=== PATIENT | male | born 1955 | race African-American/Black ===

== ENCOUNTER 2018-08-27 01:02 | Inpatient (IN) | payer BC, OTHER ==
--- NOTE | 2018-08-27 01:45 | RADIOLOGY REPORT (SQ) ---
CLINICAL HISTORY: fall; swelling COMPARISON: None. TECHNIQUE: XR ANKLE 3 OR MORE VIEWS 08/27/2018 1:08 AM SEEING EYE DOG TRAINER FINDINGS: There is a displaced transverse medial malleolus fracture. There is a mildly comminuted oblique fracture of the distal fibula. There is a vertical fracture through the posterior lip of the tibia. There is subluxation of the tibiotalar joint. There is diffuse soft tissue swelling. IMPRESSION: Trimalleolar fracture subluxation.
[2018-08-27 02:48] LABS: ABSOLUTE EOSINOPHILS # (AUTO) 0.2 10^3/uL (0.0-0.6); ABSOLUTE LYMPHOCYTES (AUTO) 1.4 10^3/uL (0.5-4.7); ABSOLUTE MONOCYTES (AUTO) 0.6 10^3/uL (0.1-1.4); ABSOLUTE NEUT (AUTO) 5.3 10^3/uL (1.7-8.2); BASOPHILS % (AUTO) 0.2 % (0-2); HEMATOCRIT 31.2 % (37.9-51.0); HEMOGLOBIN 10.4 g/dL (13.5-17.0); LYMPHOCYTES % (AUTO) 18.6 % (13-45); MEAN CORPUSCULAR HEMOGLOBIN 27.8 pg (27.0-33.4); MEAN CORPUSCULAR HGB CONC 33.4 g/dL (32.0-36.0); MEAN CORPUSCULAR VOLUME 83 fl (80-97); MONOCYTES % (AUTO) 7.6 % (3-13); PLATELET COUNT 224 10^3/uL (150-450); RED BLOOD COUNT 3.75 10^6/uL (4.35-5.55); RED CELL DISTRIBUTION WIDTH 15.4 % (11.5-14.0); SEGMENTED NEUTROPHILS % (AUTO) 70.6 % (42-78); TOTAL CELLS COUNTED % (AUTO) 100 %; WHITE BLOOD COUNT 7.5 10^3/uL (4.0-10.5)
[2018-08-27 02:51] LABS: ALANINE AMINOTRANSFERASE 76 U/L (21-72); ALKALINE PHOSPHATASE 96 U/L (38-126); ANION GAP 9 (5-19); ASPARTATE AMINO TRANSFERASE 63 U/L (17-59); BILIRUBIN,DIRECT 0.3 mg/dL (0.0-0.4); BILIRUBIN,TOTAL 0.4 mg/dL (0.2-1.3); BLOOD UREA NITROGEN 18 mg/dL (7-20); CARBON DIOXIDE 24 mmol/L (22-30); CHLORIDE 107 mmol/L (98-107); GLUCOSE 207 mg/dL (75-110); POTASSIUM 4.2 mmol/L (3.6-5.0); SODIUM 140.4 mmol/L (137-145); TOTAL PROTEIN 7.2 g/dL (6.3-8.2)
--- NOTE | 2018-08-27 02:51 | RADIOLOGY REPORT (SQ) ---
CLINICAL HISTORY: Post reduction COMPARISON: Earlier the same day. TECHNIQUE: XR ANKLE 2 VIEWS 08/27/2018 2:03 AM LITIGATION ASSISTANT FINDINGS: There are continued findings of a trimalleolar fracture subluxation. Alignment is not significantly changed. Joint spaces are preserved. There is diffuse soft tissue swelling. IMPRESSION: No significant change in alignment.
--- NOTE | 2018-08-27 03:34 | ER Document Report ---
Entered by RACHEL RITTER SCRIBE 08/27/18 0120 Acting as scribe for:TORRI MOSLEY MD ED Extremity Problem, Lower - General Chief Complaint: Fall Injury Stated Complaint: ANKLE PAIN Time Seen by Provider: 08/27/18 01:11 Primary Care Provider: KALPANA PHAM [NO LOCAL MD] - Follow up as needed Information source: Patient Notes: 63-year-old male who presents to the emergency department today with complaints of left ankle pain. Patient states he was walking out of his house into his garage which she is remodeling into a normal room when he lost his balance. Patient states his "left leg tried to get away from him". Patient complains of left ankle pain left thigh pain. Patient states left thigh pain has been present for several days after falling and. Patient is on 30 mg of oxycodone every 4 hours daily for chronic back pain. Pain medication was not given according to the long bone fracture policy due to the fact that the patient takes oxycodone 30 mg every 4 hours and took a dose just prior to coming in. He also did not really have much discomfort when I straightened the ankle and held it for splinting. TRAVEL OUTSIDE OF THE [place] IN LAST 30 DAYS: No - Related Data Allergies/Adverse Reactions: aspirin Allergy (Verified 08/27/18 01:23) shellfish derived Allergy (Verified 08/27/18 01:23) acetaminophen [From Tylenol] Adverse Reaction (Verified 08/27/18 01:23) Past Medical History - General Information source: Patient - Social History Smoking Status: Never Smoker Cigarette use (# per day): No Frequency of alcohol use: None Drug Abuse: None Lives with: Family Family History: Reviewed & Not Pertinent - Past Medical History Cardiac Medical History: Reports: Hx Hypercholesterolemia, Hx Hypertension Endocrine Medical History: Reports: Hx Diabetes Mellitus Type 2 Renal/ Medical History: Reports: Hx Benign Prostatic Hyperplasia Surgical Hx: Negative Review of Systems - Review of Systems Constitutional: No symptoms reported EENT: No symptoms reported Cardiovascular: No symptoms reported Respiratory: No symptoms reported Gastrointestinal: No symptoms reported Genitourinary: No symptoms reported Male Genitourinary: No symptoms reported Musculoskeletal: See HPI, Joint pain - left ankle with swelling Skin: No symptoms reported Hematologic/Lymphatic: No symptoms reported Neurological/Psychological: No symptoms reported -: Yes All other systems reviewed and negative Physical Exam - Vital signs Vitals: Temp Pulse Resp BP Pulse Ox 98.5 F 117 H 22 H 162/86 H 98 08/27/18 01:07 08/27/18 01:07 08/27/18 01:07 08/27/18 01:07 08/27/18 01:07 - Notes Notes: Physical Exam: General: Alert, morbidly obese. HEENT: Normocephalic. Atraumatic. PERRL. Extraocular movements intact. Oropharynx clear. Neck: Supple. Non-tender. Respiratory: No respiratory distress. Clear and equal breath sounds bilaterally. Cardiovascular: Regular rate and rhythm. Abdominal: Morbidly obese. Non-tender. No distension. Normal Bowel Sounds. Back: Non-tender. No deformity or step off. Extremities: Moves all four extremities. Upper extremities: Normal inspection. Normal ROM. Lower extremities: The left anterior lateral thigh is tender to palpate in the m uscles. Patient reports that has been tender since he stepped in a hole last week. The left ankle is swollen, and on evaluation is found to be unstable. There is good capillary refill and normal sensation to the toes. Neurological: Normal cognition. AAOx4. Normal speech. Psychological: Normal affect. Normal Mood. Skin: Warm. Dry. Normal color. Course - Re-evaluation Re-evalutation: 08/27/18 02:44 An attempt was made to hold the ankle in a reduced manner and splint. The patient would periodically jerk and I could feel the medial malleolar region moving back and forth. I was not able to keep the ankle in reduction, however when splinted the patient was comfortable, had good capillary refill, and good sensation to the toes. - Vital Signs Vital signs: Temp Pulse Resp BP Pulse Ox 98.5 F 117 H 16 165/91 H 98 08/27/18 01:07 08/27/18 01:07 08/27/18 02:01 08/27/18 02:01 08/27/18 02:01 - Laboratory Result Diagrams: 08/27/18 02:30 08/27/18 02:30 Laboratory results interpreted by me: 08/27/18 08/27/18 02:30 02:30 RBC 3.75 L Hgb 10.4 L Hct 31.2 L RDW 15.4 H Glucose 207 H AST 63 H ALT 76 H - Diagnostic Test Radiology reviewed: Reports reviewed - Left ankle shows a trimalleolar fracture subluxation - EKG Interpretation by Me EKG shows normal: Sinus rhythm, [place], Intervals, QRS Complexes, ST-T Waves Rate: Normal - 94 Rhythm: NSR [place]/QRS: RBBB P Waves: LAE When compared to previous EKG there are: Previous EKG unavailable - Consults Dr. Matthews Time consulted: 03:20 Consulted provider: will see as inpatient Discharge - Discharge Clinical Impression: Trimalleolar fracture of left ankle Qualifiers: Encounter type: initial encounter Fracture type: closed Qualified Code(s): S82.852A - Displaced trimalleolar fracture of left lower leg, initial encounter for closed fracture Condition: Stable Disposition: ADMITTED INPATIENT Admitting Provider: Dr. Matthews Unit Admitted: Surgical Floor Referrals: LOCALMD,NO [NO LOCAL MD] - Follow up as needed I personally performed the services described in the documentation, reviewed and edited the documentation which was dictated to the scribe in my presence, and it accurately records my words and actions.
[2018-08-27] MEDS: MORPHINE SULFATE 10 MG/ML INJ IV PRN ×5 (06:19→22:39)
--- NOTE | 2018-08-27 07:28 | PDOC H&P ---
History of Present Illness Admission Date/PCP: 08/27/18 03:42 [facility] History of Present Illness: TJ PIERCE is a 63 year old male Patient is a 63-year-old black male with past medical history significant for diabetes and hypertension who slipped and fell yesterday sustained a left ankle injury. He was evaluated emergency room and a displaced left trimalleolar ankle fracture was identified. He was reduced, splinted, admitted to the orthopedic service for fracture management. Past Medical History Cardiac Medical History: Reports: Hyperlipidema, Hypertension Endocrine Medical History: Reports: Diabetes Mellitus Type 2 Psychiatric Medical History: Denies: Depression Past Surgical History Past Surgical History: Reports: None Social History Information Source: Patient, [facility] Records Lives with: Family Smoking Status: Never Smoker Frequency of Alcohol Use: None Hx Recreational Drug Use: No Hx Prescription Drug Abuse: No Family History Family History: Reviewed & Not Pertinent Parental Family History Reviewed: No Children Family History Reviewed: No Sibling(s) Family History Reviewed.: No Medication/Allergy Home Medications: Amlodipine Besylate [Norvasc 10 mg Tablet] 10 mg PO DAILY 08/27/18 Atorvastatin Calcium [Lipitor] 80 mg PO QHS 08/27/18 Gabapentin Enacarbil [Horizant] 600 mg PO DAILY 08/27/18 Insulin Glargine,Hum.rec.anlog [Lantus Insulin 100 Unit/mL] 50 units SUBCUT QHS 08/27/18 Metoprolol Tartrate [Lopressor 25 mg Tablet] 25 mg PO BID 08/27/18 Omeprazole 20 mg PO BID 08/27/18 Oxycodone HCl [Oxy-Ir 5 mg Tablet] 15 mg PO Q6H PRN 08/27/18 Sitagliptin Phos/Metformin HCl [Janumet Xr 50-1,000 mg Tablet] 50 - 1,000 mg PO BID 08/27/18 Telmisartan/Hydrochlorothiazid [Telmisartan-Hctz 80-25 mg Tab] 1 tab PO DAILY 08/27/18 Terazosin HCl 10 mg PO DAILY 08/27/18 Allergies/Adverse Reactions: aspirin Allergy (Verified 08/27/18 01:23) shellfish derived Allergy (Verified 08/27/18 01:23) acetaminophen [From Tylenol] Adverse Reaction (Verified 08/27/18 01:23) Review of Systems All systems: as per PMH Physical Exam Vital Signs: Temp Pulse Resp BP Pulse Ox 36.8 C 98 20 161/85 H 98 08/27/18 05:44 08/27/18 05:44 08/27/18 05:44 08/27/18 05:44 08/27/18 05:44 Intake & Output 08/26/18 08/27/18 08/28/18 06:59 06:59 06:59 Weight 142.3 kg Physical Exam: The patient is an obese middle-aged black male lying in a hospital bed in minimal distress. He is alert, oriented, and appropriate. General appearance: PRESENT: no acute distress, mild distress, obese Head exam: PRESENT: normocephalic Respiratory exam: PRESENT: unlabored Cardiovascular exam: PRESENT: RRR Pulses: PRESENT: +1 pedal pulses bilateral Vascular exam: PRESENT: normal capillary refill GI/Abdominal exam: PRESENT: soft Rectal exam: PRESENT: deferred Extremities exam: PRESENT: other - Left lower extremity immobilized with a posterior splint. Toes are accessible. There is brisk capillary refill in each of the digits with intact sensory examination and intact motor function to the great toe. Neurological exam: PRESENT: alert, awake, oriented to person, oriented to place, oriented to time, oriented to situation. ABSENT: motor sensory deficit Psychiatric exam: PRESENT: appropriate affect, normal mood. ABSENT: homicidal ideation, suicidal ideation Skin exam: PRESENT: dry, intact, warm. ABSENT: cyanosis, rash Results Laboratory Results: 08/27/18 02:30 08/27/18 02:30 08/27/18 08/27/18 02:30 02:30 WBC 7.5 RBC 3.75 L Hgb 10.4 L Hct 31.2 L MCV 83 MCH 27.8 MCHC 33.4 RDW 15.4 H Plt Count 224 Seg Neutrophils % 70.6 Lymphocytes % 18.6 Monocytes % 7.6 Eosinophils % 3.0 Basophils % 0.2 Absolute Neutrophils 5.3 Absolute Lymphocytes 1.4 Absolute Monocytes 0.6 Absolute Eosinophils 0.2 Absolute Basophils 0.0 Sodium 140.4 Potassium 4.2 Chloride 107 Carbon Dioxide 24 Anion Gap 9 BUN 18 Creatinine 1.09 Est GFR ( Amer) > 60 Est GFR (Non-Af Amer) > 60 Glucose 207 H Calcium 9.0 Total Bilirubin 0.4 AST 63 H ALT 76 H Alkaline Phosphatase 96 Total Protein 7.2 Albumin 4.0 Impressions: Ankle X-Ray 08/27/18 02:03 IMPRESSION: No significant change in alignment. Status: Imported from PACS Assessment & Plan - Diagnosis (1) Diabetes Qualifiers: Diabetes mellitus type: type 2 Is this a current diagnosis for this admission?: Yes Plan: Patient will continue with medical management. A sliding scale has been applied to cover perioperative stress (2) Hypertension Is this a current diagnosis for this admission?: Yes Plan: Medical management (3) Trimalleolar fracture of left ankle Qualifiers: Encounter type: initial encounter Fracture type: closed Qualified Code(s): S82.852A - Displaced trimalleolar fracture of left lower leg, initial encounter for closed fracture Is this a current diagnosis for this admission?: Yes Plan: Plan for open reduction internal fixation under choice anesthesia tomorrow. - Time Time Spent: 50 to 70 Minutes Anticipated discharge: Home with Homehealth Within: within 48 hours
[2018-08-27] MEDS ORDERED: ONDANSETRON 4 MG TAB.RAPDIS PO PRN (08:20)
[2018-08-27] MEDS ORDERED: GLUCAGON,HUMAN RECOMB 1 MG INJ IM PRN ×2 (08:30)
[2018-08-27] MEDS ORDERED: DEXTROSE 40% GEL 15 GM TUBE X 2 PO PRN ×2 (08:30)
[2018-08-27] MEDS ORDERED: DEXTROSE 50%-WATER SYRINGE 12.5 GM/25 ML DOSE IV PRN ×2 (08:30)
[2018-08-27] MEDS ORDERED: DEXTROSE 40% GEL 15 GM TUBE PO PRN ×2 (08:30)
[2018-08-27] MEDS ORDERED: DEXTROSE 50%-WATER SYRINGE 25 GM/50 ML DOSE IV PRN ×2 (08:30)
[2018-08-27] MEDS ORDERED: INSULIN LISPRO 100 UNIT/ML 3 ML VIAL SUBCUT SCH (11:00)
[2018-08-27] MEDS: OXYCODONE HCL IR 5 MG TABLET PO PRN ×2 (11:41→18:07)
[2018-08-27] MEDS: INSULIN LISPRO 100 UNIT/ML 3 ML VIAL SUBCUT SCH ×3 (11:42→22:40)
[2018-08-27] MEDS ORDERED: HORIZANT 600 MG PO SCH (12:45)
[2018-08-27] MEDS ORDERED: JANUMET PO SCH (13:00)
[2018-08-27] MEDS: HYDROCHLOROTHIAZIDE 25 MG TABLET PO SCH (13:31)
[2018-08-27] MEDS: DOXAZOSIN MESYLATE 4 MG TABLET PO SCH (13:32)
[2018-08-27] MEDS: LOSARTAN POTASSIUM 50 MG TABLET PO SCH (13:32)
[2018-08-27] MEDS: AMLODIPINE BESYLATE 10 MG TABLET PO SCH (13:32)
[2018-08-27] MEDS: METOPROLOL TARTRATE 25 MG TABLET PO SCH ×2 (13:34→22:41)
[2018-08-27] MEDS: LANSOPRAZOLE 15 MG TAB.RAP.DR PO SCH (17:18)
[2018-08-27] MEDS: INSULIN GLARGINE,HUM.REC.ANLOG 1,000 UNIT/10 ML VIAL (PYX) SUBCUT SCH (22:40)
[2018-08-27] MEDS: ATORVASTATIN CALCIUM 80 MG TABLET PO SCH (22:41)
--- NOTE | 2018-08-27 22:54 | EKG REPORT ---
SEVERITY:- ABNORMAL ECG - SINUS RHYTHM PROBABLE LEFT ATRIAL ABNORMALITY RIGHT BUNDLE BRANCH BLOCK : Confirmed by: Maximino White 27-Aug-2018 22:52:29
[2018-08-28] MEDS: OXYCODONE HCL IR 5 MG TABLET PO PRN ×2 (00:16→08:02)
[2018-08-28] MEDS: MORPHINE SULFATE 10 MG/ML INJ IV PRN ×4 (05:47→21:34)
[2018-08-28] MEDS: RINGERS SOLUTION,LACTATED 1,000 ML IV PRN (05:48)
[2018-08-28 06:17] LABS: HEMATOCRIT 31.8 % (37.9-51.0); HEMOGLOBIN 10.4 g/dL (13.5-17.0); MEAN CORPUSCULAR HEMOGLOBIN 27.2 pg (27.0-33.4); MEAN CORPUSCULAR HGB CONC 32.7 g/dL (32.0-36.0); MEAN CORPUSCULAR VOLUME 83 fl (80-97); PLATELET COUNT 270 10^3/uL (150-450); RED BLOOD COUNT 3.81 10^6/uL (4.35-5.55); RED CELL DISTRIBUTION WIDTH 15.4 % (11.5-14.0); WHITE BLOOD COUNT 11.1 10^3/uL (4.0-10.5)
[2018-08-28 06:20] LABS: INTERNATIONAL RATION (INR) 1.05; PROTHROMBIN TIME 14.2 SEC (11.4-15.4)
[2018-08-28 06:21] LABS: PARTIAL THROMBOPLASTIN TIME 31.8 SEC (23.5-35.8)
[2018-08-28 06:38] LABS: ANION GAP 13 (5-19); BLOOD UREA NITROGEN 13 mg/dL (7-20); CALCIUM 9.7 mg/dL (8.4-10.2); CARBON DIOXIDE 25 mmol/L (22-30); CHLORIDE 103 mmol/L (98-107); GLUCOSE 199 mg/dL (75-110); POTASSIUM 3.6 mmol/L (3.6-5.0); SODIUM 140.6 mmol/L (137-145)
[2018-08-28] MEDS: INSULIN LISPRO 100 UNIT/ML 3 ML VIAL SUBCUT SCH ×4 (09:05→21:39)
[2018-08-28] MEDS: LOSARTAN POTASSIUM 50 MG TABLET PO SCH (11:56)
[2018-08-28] MEDS: LANSOPRAZOLE 15 MG TAB.RAP.DR PO SCH ×2 (11:57→18:25)
[2018-08-28] MEDS: HYDROCHLOROTHIAZIDE 25 MG TABLET PO SCH (11:57)
[2018-08-28] MEDS: AMLODIPINE BESYLATE 10 MG TABLET PO SCH (11:57)
[2018-08-28] MEDS: METOPROLOL TARTRATE 25 MG TABLET PO SCH ×2 (11:57→21:41)
[2018-08-28] MEDS ORDERED: EPHEDRINE SULFATE INJ 50 MG/1 ML AMPULE ONE (13:47)
[2018-08-28] MEDS ORDERED: MIDAZOLAM 2 MG/2 ML INJ ONE (13:47)
[2018-08-28] MEDS ORDERED: FENTANYL CITRATE INJ/PF 100 MCG/2 ML AMPUL ONE (13:47)
[2018-08-28] MEDS ORDERED: ACETAMINOPHEN 0 MG/0 ML RTUPB IV ONE (13:48)
[2018-08-28] MEDS ORDERED: PROPOFOL INJ 200 MG/20 ML VIAL IV ONE (13:48)
[2018-08-28] MEDS ORDERED: ONDANSETRON HCL INJ/PF 4 MG/2 ML SDV ONE (13:48)
[2018-08-28] MEDS: CEFAZOLIN 2 GM/D5W RTU 2 GM/50 ML RTUPB IV PRN ×2 (14:40→14:45)
[2018-08-28] MEDS ORDERED: FENTANYL CITRATE INJ/PF 100 MCG/2 ML AMPUL IV PRN ×3 (14:43)
[2018-08-28] MEDS ORDERED: PROMETHAZINE HCL INJ 25 MG/1 ML VIAL IV PRN ×2 (14:43)
[2018-08-28] MEDS ORDERED: MORPHINE SULFATE 10 MG/ML INJ IV PRN (14:43)
[2018-08-28] MEDS ORDERED: MEPERIDINE HCL/PF INJ 25 MG/1 ML DISP.SYRIN IV PRN (14:43)
[2018-08-28] MEDS ORDERED: DIPHENHYDRAMINE HCL 50 MG/ML VIAL IV PRN (14:43)
--- NOTE | 2018-08-28 15:14 | Operative Report ---
Operative Report DATE OF SURGERY: 08/28/18 PREOPERATIVE DIAGNOSIS: Left trimalleolar ankle fracture OPERATION: Open reduction internal fixation left ankle fracture SURGEON: TAYLOR TRUJILLO ANESTHESIA: Spinal ESTIMATED BLOOD LOSS: 75 PROCEDURE: With the patient supine the operating room table left lower extremities prepped and draped in sterile fashion. Limb is elevated for exsanguination tourniquet inflated to 300 torr. Longitudinal incisions made over the distal fibula and sharp dissection was carried incision down to the periosteum. The periosteum was elevated. The fracture is comminuted and a decision was made to place a [employer] ankle solutions distal fibula titanium plate and secured distally followed by distraction and clamping the plate proximally. This led to an anatomic reduction of the fracture. It secured with 4 screws proximally and 4 screws distally. Subsequently an incision was made over the medial malleolus and sharp dissection was carried incision down to the fracture. The fracture was visualized. Its reduced anatomically using a dental pick. Subsequently 2 pins were placed across the fracture followed by 50 mm x 4.0 mm cannulated screws. The fracture reduction hardware placement checked fluoroscopically and felt to be adequate. The tourniquet was deflated. Hemostasis obtained with electrocautery. The wounds irrigated. The subsequent closed in layers interrupted Vicryl followed by nylon. A sterile compressive dressing posterior plaster splint were applied the patient's return to the PACU in satisfactory condition.
--- NOTE | 2018-08-28 15:59 | RADIOLOGY REPORT (SQ) ---
EXAM DESCRIPTION: NO CHG FLUORO; ANKLE LEFT COMPLETE COMPLETED DATE/TIME: 08/28/2018 3:24 pm REASON FOR STUDY: ORIF L ANKLE COMPARISON: None. FLUOROSCOPY TIME: 0.4 minutes 4 images saved to PACS. TECHNIQUE: Intra-operative images acquired during surgical procedure to evaluate progress. NUMBER OF IMAGES: 4 LIMITATIONS: None. FINDINGS: Selected images from plate and screw fixation of lateral malleolar fracture. Cancellous s crew fixation of medial malleolar fracture. Alignment is anatomic. IMPRESSION: IMAGE(S) OBTAINED DURING PROCEDURE. COMMENT: Quality ID [id number]: Final reports for procedures using fluoroscopy that document radiation exp osure indices, or exposure time and number of fluorographic images (if radiation exposure indices are not available) Please consult full operative report of the attending physician for description of the procedure. TECHNICAL DOCUMENTATION: JOB ID: [id number] [employer]- All Rights Reserved Reading location - IP/workstation name: [email or web address]
--- NOTE | 2018-08-28 15:59 | RADIOLOGY REPORT (SQ) ---
EXAM DESCRIPTION: NO CHG FLUORO; ANKLE LEFT COMPLETE COMPLETED DATE/TIME: 08/28/2018 3:24 pm REASON FOR STUDY: ORIF L ANKLE COMPARISON: None. FLUOROSCOPY TIME: 0.4 minutes 4 images saved to PACS. TECHNIQUE: Intra-operative images acquired during surgical procedure to evaluate progress. NUMBER OF IMAGES: 4 LIMITATIONS: None. FINDINGS: Selected images from plate and screw fixation of lateral malleolar fracture. Cancellous s crew fixation of medial malleolar fracture. Alignment is anatomic. IMPRESSION: IMAGE(S) OBTAINED DURING PROCEDURE. COMMENT: Quality ID 145: Final reports for procedures using fluoroscopy that document radiation exp osure indices, or exposure time and number of fluorographic images (if radiation exposure indices are not available) Please consult full operative report of the attending physician for description of the procedure. TECHNICAL DOCUMENTATION: JOB ID: [id number] [employer]- All Rights Reserved Reading location - IP/workstation name: [email or web address]
[2018-08-28] MEDS: DOXAZOSIN MESYLATE 4 MG TABLET PO SCH (17:05)
[2018-08-28] MEDS: CEFAZOLIN 2 GM/D5W RTU 2 GM/50 ML RTUPB IV SCH (21:39)
[2018-08-28] MEDS: ATORVASTATIN CALCIUM 80 MG TABLET PO SCH (21:40)
[2018-08-28] MEDS: INSULIN GLARGINE,HUM.REC.ANLOG 1,000 UNIT/10 ML VIAL (PYX) SUBCUT SCH (21:40)
--- NOTE | 2018-08-28 22:24 | PDOC CONSULTATION ---
Consultation Consult Date: 08/28/18 Attending physician:: LEN CARRIZALES Consult reason:: abdominal distension History of Present Illness Admission Date/PCP: 08/27/18 03:42 [facility] History of Present Illness: TJ PIERCE is a 63 year old male who is s/p repair of ankle fracture today started to develop abdomiinal distension after surgery pt c/o swollen abd, min tenderness. he states he was eating ok prior to surgery and he abd developed swelling after his surgery today he has never had abd surgery had a colonoscopy 3-5 yrs ago during which 2 polyps were removed he does have a hx of constipation. Past Medical History Cardiac Medical History: Reports: Hyperlipidema, Hypertension Endocrine Medical History: Reports: Diabetes Mellitus Type 2 Psychiatric Medical History: Denies: Depression Past Surgical History Past Surgical History: Reports: None, Orthopedic Surgery, Other Social History Lives with: Family Smoking Status: Never Smoker Frequency of Alcohol Use: None Hx Recreational Drug Use: No Hx Prescription Drug Abuse: No - Advance Directive Resuscitation Status: Full Code Family History Family History: Reviewed & Not Pertinent Parental Family History Reviewed: No Children Family History Reviewed: No Sibling(s) Family History Reviewed.: No Medication/Allergy Home Medications: Amlodipine Besylate [Norvasc 10 mg Tablet] 10 mg PO DAILY 08/27/18 Atorvastatin Calcium [Lipitor] 80 mg PO QHS 08/27/18 Gabapentin Enacarbil [Horizant] 600 mg PO DAILY 08/27/18 Insulin Glargine,Hum.rec.anlog [Lantus Insulin 100 Unit/mL] 50 units SUBCUT QHS 08/27/18 Metoprolol Tartrate [Lopressor 25 mg Tablet] 25 mg PO BID 08/27/18 Omeprazole 20 mg PO BID 08/27/18 Oxycodone HCl [Oxy-Ir 5 mg Tablet] 30 mg PO Q4H PRN 08/27/18 Sitagliptin Phos/Metformin HCl [Janumet Xr 50-1,000 mg Tablet] 50 - 1,000 mg PO BID 08/27/18 Telmisartan/Hydrochlorothiazid [Telmisartan-Hctz 80-25 mg Tab] 1 tab PO DAILY 08/27/18 Terazosin HCl 10 mg PO DAILY 08/27/18 Allergies/Adverse Reactions: aspirin Allergy (Verified 08/27/18 01:23) shellfish derived Allergy (Verified 08/27/18 01:23) acetaminophen [From Tylenol] Adverse Reaction (Verified 08/27/18 01:23) Review of Systems Constitutional: PRESENT: as per HPI Eyes: PRESENT: as per HPI Ears: PRESENT: as per HPI Nose, Mouth, and Throat: PRESENT: as per HPI Breasts: PRESENT: as per HPI Cardiovascular: PRESENT: as per HPI Respiratory: PRESENT: as per HPI Gastrointestinal: PRESENT: as per HPI, bloating, nausea Genitourinary: PRESENT: as per HPI Musculoskeletal: PRESENT: as per HPI Integumentary: PRESENT: as per HPI Neurological: PRESENT: as per HPI Psychiatric: PRESENT: as per HPI Endocrine: PRESENT: as per HPI Hematologic/Lymphatic: PRESENT: as per HPI Allergic/Immunologic: PRESENT: as per HPI Physical Exam Vital Signs: Temp Pulse Resp BP Pulse Ox 98 F 94 18 159/80 H 100 08/28/18 18:15 08/28/18 18:15 08/28/18 18:15 08/28/18 18:15 08/28/18 18:15 Intake & Output 08/27/18 08/28/18 08/29/18 06:59 06:59 06:59 Intake Total 1139 3300 Output Total 1900 365 Balance -761 2935 Weight 142.3 kg 138.6 kg General appearance: PRESENT: no acute distress Head exam: PRESENT: atraumatic Eye exam: PRESENT: conjunctiva pink Neck exam: PRESENT: full ROM Respiratory exam: PRESENT: clear to auscultation frantz Cardiovascular exam: PRESENT: RRR Pulses: PRESENT: normal radial pulses, normal femoral pulses Vascular exam: PRESENT: normal capillary refill GI/Abdominal exam: PRESENT: distended, firm - no focal point tenderness, hypoactive bowel sounds Rectal exam: PRESENT: deferred Extremities exam: PRESENT: full ROM Neurological exam: PRESENT: alert, awake, oriented to time, oriented to situation Results Laboratory Results: 08/28/18 05:47 08/28/18 05:47 08/28/18 08/28/18 05:47 05:47 WBC 11.1 H RBC 3.81 L Hgb 10.4 L Hct 31.8 L MCV 83 MCH 27.2 MCHC 32.7 RDW 15.4 H Plt Count 270 Sodium 140.6 Potassium 3.6 Chloride 103 Carbon Dioxide 25 Anion Gap 13 BUN 13 Creatinine 1.11 Est GFR ( Amer) > 60 Est GFR (Non-Af Amer) > 60 Glucose 199 H Calcium 9.7 Impressions: Ankle X-Ray 08/28/18 00:00 IMPRESSION: IMAGE(S) OBTAINED DURING PROCEDURE. Fluoroscopy 08/28/18 00:00 IMPRESSION: IMAGE(S) OBTAINED DURING PROCEDURE. Status: Image reviewed by - layton reviewed multilple gas fill loops of small bowel and colon gaseous distension, no obvious sbo, no free air c/w ileus vs con stipation Assessment & Plan - Plan Summary Plan Summary: 64 y/o male s/p repair of ankle fx awoke after surgery with abdominal distension was eating a regular diet the day before sugery without complaints never has had abd surgery in the past colonoscopy 3-5 yrs ago with only polyps removed hx of constipatio impression ileus vs constipation recommend npo soap suds enemas (Berman Flush) may need ng tube if he develops nause, vomiting may consider small bowel series with gastrografin if no resolution in 1-2 days surgery will follow.
--- NOTE | 2018-08-28 23:05 | RADIOLOGY REPORT (SQ) ---
EXAM DESCRIPTION: XR ABDOMEN 1 VIEW (KUB) COMPLETED DATE/TME: 08/28/2018 00:00 CLINICAL HISTORY: 63 years, Male, Abdominal pain/distention COMPARISON: None. NUMBER OF VIEWS: 3 TECHNIQUE: 3 AP views of the abdomen LIMITATIONS: None. FINDINGS: The bowel gas pattern is nonspecific. Evaluation for free air limited on a supine view. A penile implant noted. Mild gaseous distention of both large and small bowel likely reflecting ileus. Partial or incomplete obstruction felt less likely. IMPRESSION: Mild diffuse gaseous distention of bowel likely reflecting ileus. Follow-up recommended copyright 2010 [employer]- All Rights Reserved
[2018-08-29] MEDS: MORPHINE SULFATE 10 MG/ML INJ IV PRN ×3 (01:05→08:25)
[2018-08-29] MEDS: OXYCODONE HCL IR 5 MG TABLET PO PRN (02:07)
[2018-08-29] MEDS: RINGERS SOLUTION,LACTATED 1,000 ML IV PRN (06:26)
[2018-08-29] MEDS: CEFAZOLIN 2 GM/D5W RTU 2 GM/50 ML RTUPB IV SCH ×3 (06:26→21:06)
--- NOTE | 2018-08-29 07:25 | PDOC PROGRESS REPORT ---
Subjective Progress Note for:: 08/29/18 Reason For Visit: TRIMALLEOLAR FRACTURE OF LEFT ANKLE 63-year-old black male postop day 1 status post open reduction internal fixation of the left trimalleolar ankle fracture. Patient with issues of GI distress overnight diagnosed as an ileus. Physical Exam Vital Signs: Temp Pulse Resp BP Pulse Ox 37.0 C 87 18 184/88 H 100 08/28/18 22:15 08/28/18 22:15 08/28/18 22:15 08/28/18 22:15 08/28/18 22:15 Intake & Output 08/28/18 08/29/18 08/30/18 06:59 06:59 06:59 Intake Total 1139 3710 Output Total 1900 1907 Balance -761 1803 Weight 138.6 kg 140.2 kg Physical Exam: Obese black male sitting in bed in minor distress. Patient complaining about inadequate analgesia. States that the analgesia is appropriate following administration but does not last long enough. General appearance: PRESENT: mild distress, obese Head exam: PRESENT: normocephalic Respiratory exam: PRESENT: unlabored Cardiovascular exam: PRESENT: RRR Pulses: PRESENT: +1 pedal pulses bilateral Vascular exam: PRESENT: normal capillary refill GI/Abdominal exam: PRESENT: soft Rectal exam: PRESENT: deferred Extremities exam: PRESENT: other - Left lower extremity immobilized in a posterior plaster splint. Splint remains dry. Distal neurovascular examination is intact. Neurological exam: PRESENT: alert, awake, oriented to person, oriented to place, oriented to time, oriented to situation. ABSENT: motor sensory deficit Psychiatric exam: PRESENT: appropriate affect, normal mood. ABSENT: homicidal ideation, suicidal ideation Skin exam: PRESENT: dry, intact, warm. ABSENT: cyanosis, rash Results Laboratory Results: 08/28/18 05:47 08/28/18 05:47 Impressions: Ankle X-Ray 08/28/18 00:00 IMPRESSION: IMAGE(S) OBTAINED DURING PROCEDURE. Fluoroscopy 08/28/18 00:00 IMPRESSION: IMAGE(S) OBTAINED DURING PROCEDURE. KUB X-Ray 08/28/18 00:00 IMPRESSION: Mild diffuse gaseous distention of bowel likely reflecting ileus. Follow-up recommended copyright 2010 [employer]- All Rights Reserved Status: Imported from PACS Assessment & Plan - Diagnosis (1) Diabetes Qualifiers: Diabetes mellitus type: type 2 Is this a current diagnosis for this admission?: Yes Plan: Blood sugar control adequate at this point. (2) Hypertension Is this a current diagnosis for this admission?: Yes Plan: Medical control (3) Trimalleolar fracture of left ankle Qualifiers: Encounter type: initial encounter Fracture type: closed Qualified Code(s): S82.852A - Displaced trimalleolar fracture of left lower leg, initial encounter for closed fracture Is this a current diagnosis for this admission?: Yes Plan: Mobilized with physical therapy and a touchdown weightbearing restriction left lower extremity (4) Ileus Is this a current diagnosis for this admission?: Yes Plan: Plan per general surgery - Time Time Spent with patient: 15-24 minutes Anticipated discharge: Home with Homehealth Within: within 24 hours
[2018-08-29] MEDS ORDERED: OXYCODONE HCL IR 5 MG TABLET PO PRN (07:55)
[2018-08-29 08:04] LABS: ABSOLUTE LYMPHOCYTES (AUTO) 1.7 10^3/uL (0.5-4.7); ABSOLUTE NEUT (AUTO) 8.3 10^3/uL (1.7-8.2); BASOPHILS % (AUTO) 0.1 % (0-2); HEMATOCRIT 26.9 % (37.9-51.0); HEMOGLOBIN 9.2 g/dL (13.5-17.0); LYMPHOCYTES % (AUTO) 15.2 % (13-45); MEAN CORPUSCULAR HGB CONC 34.2 g/dL (32.0-36.0); MEAN CORPUSCULAR VOLUME 82 fl (80-97); MONOCYTES % (AUTO) 9.5 % (3-13); PLATELET COUNT 234 10^3/uL (150-450); RED BLOOD COUNT 3.29 10^6/uL (4.35-5.55); RED CELL DISTRIBUTION WIDTH 15.4 % (11.5-14.0); SEGMENTED NEUTROPHILS % (AUTO) 75.2 % (42-78); TOTAL CELLS COUNTED % (AUTO) 100 %
[2018-08-29 08:33] LABS: ANION GAP 12 (5-19); BLOOD UREA NITROGEN 11 mg/dL (7-20); CALCIUM 9.3 mg/dL (8.4-10.2); CARBON DIOXIDE 26 mmol/L (22-30); CHLORIDE 102 mmol/L (98-107); GLUCOSE 169 mg/dL (75-110); POTASSIUM 3.6 mmol/L (3.6-5.0); SODIUM 139.6 mmol/L (137-145)
--- NOTE | 2018-08-29 08:46 | RADIOLOGY REPORT (SQ) ---
EXAM DESCRIPTION: ACUTE ABDOMEN SERIES COMPLETED DATE/TIME: 08/29/2018 8:08 am REASON FOR STUDY: follow up ileus vs pseudobstruction COMPARISON: Chest films 03/26/2010 KUB 09/17/2018 NUMBER OF VIEWS: Three views. TECHNIQUE: Frontal chest, supine abdomen and upright abdomen radiographic images acquired. LIMITATIONS: None. FINDINGS: CHEST: Lungs clear of infiltrates. Cardiac silhouette size, farhat unremarkable. FREE AIR: None. No abnormal gas collections. BOWEL GAS PATTERN: Abnormal but nonspecific bowel gas pattern, with air filled mildly distended small bowel loops in the mid abdomen. There is gas and stool in the colon, and air in nondistended stomac h. CALCIFICATIONS: No suspicious calcifications. HARDWARE: None in the abdomen. SOFT TISSUES: No gross mass or suggestion of organomegaly. BONES: No acute fracture. No worrisome bone lesions. OTHER: No other significant finding. IMPRESSION: No acute infiltrates Nonspecific bowel gas pattern with air-filled mildly distended small bowel loops, question ileus or s entinel loops TECHNICAL DOCUMENTATION: JOB ID: [id number] [employer]- All Rights Reserved Reading location - IP/workstation name: [email or web address]
[2018-08-29] MEDS: DOXAZOSIN MESYLATE 4 MG TABLET PO SCH (09:32)
[2018-08-29] MEDS: LANSOPRAZOLE 15 MG TAB.RAP.DR PO SCH (09:34)
[2018-08-29] MEDS: HYDROCHLOROTHIAZIDE 25 MG TABLET PO SCH (09:34)
[2018-08-29] MEDS: METOPROLOL TARTRATE 25 MG TABLET PO SCH (09:37)
[2018-08-29] MEDS: AMLODIPINE BESYLATE 10 MG TABLET PO SCH (09:38)
[2018-08-29] MEDS: LOSARTAN POTASSIUM 50 MG TABLET PO SCH (09:39)
[2018-08-29] MEDS: INSULIN LISPRO 100 UNIT/ML 3 ML VIAL SUBCUT SCH ×4 (09:52→21:02)
--- NOTE | 2018-08-29 10:39 | PDOC PROGRESS REPORT ---
Subjective Progress Note for:: 08/29/18 Subjective:: patient feels comfortable, denies n/v, abdominal pain, denies flatus Reason For Visit: TRIMALLEOLAR FRACTURE OF LEFT ANKLE Physical Exam Vital Signs: Temp Pulse Resp BP Pulse Ox 99.1 F 112 H 18 188/86 H 100 08/29/18 08:16 08/29/18 08:16 08/29/18 08:16 08/29/18 08:16 08/29/18 08:16 Intake & Output 08/28/18 08/29/18 08/30/18 06:59 06:59 06:59 Intake Total 1139 3760 Output Total 1900 1907 Balance -761 1853 Weight 138.6 kg 140.2 kg General appearance: PRESENT: no acute distress Respiratory exam: PRESENT: clear to auscultation frantz Cardiovascular exam: PRESENT: RRR GI/Abdominal exam: PRESENT: distended, normal bowel sounds, soft, other - no tenderness, no peritoneal signs Results Laboratory Results: 08/29/18 07:19 08/29/18 07:19 08/29/18 08/29/18 07:19 07:19 WBC 11.0 H RBC 3.29 L Hgb 9.2 L Hct 26.9 L MCV 82 MCH 28.0 MCHC 34.2 RDW 15.4 H Plt Count 234 Seg Neutrophils % 75.2 Lymphocytes % 15.2 Monocytes % 9.5 Eosinophils % 0.0 Basophils % 0.1 Absolute Neutrophils 8.3 H Absolute Lymphocytes 1.7 Absolute Monocytes 1.0 Absolute Eosinophils 0.0 Absolute Basophils 0.0 Sodium 139.6 Potassium 3.6 Chloride 102 Carbon Dioxide 26 Anion Gap 12 BUN 11 Creatinine 0.97 Est GFR ( Amer) > 60 Est GFR (Non-Af Amer) > 60 Glucose 169 H Calcium 9.3 Impressions: Ankle X-Ray 08/28/18 00:00 IMPRESSION: IMAGE(S) OBTAINED DURING PROCEDURE. Fluoroscopy 08/28/18 00:00 IMPRESSION: IMAGE(S) OBTAINED DURING PROCEDURE. KUB X-Ray 08/28/18 00:00 IMPRESSION: Mild diffuse gaseous distention of bowel likely reflecting ileus. Follow-up recommended copyright 2010 [employer]- All Rights Reserved Acute Abdomen Series 08/29/18 00:00 IMPRESSION: No acute infiltrates Nonspecific bowel gas pattern with air-filled mildly distended small bowel loops, question ileus or sentinel loops Assessment & Plan - Diagnosis (1) Diabetes Qualifiers: Diabetes mellitus type: type 2 Diabetes mellitus complication status: without complication Is this a current diagnosis for this admission?: Yes (2) Hypertension Qualifiers: Hypertension type: essential hypertension Qualified Code(s): I10 - Essential (primary) hypertension Is this a current diagnosis for this admission?: Yes (3) Ileus Is this a current diagnosis for this admission?: Yes (4) Trimalleolar fracture of left ankle Qualifiers: Encounter type: initial encounter Fracture type: closed Qualified Code(s): S82.852A - Displaced trimalleolar fracture of left lower leg, initial e ncounter for closed fracture Is this a current diagnosis for this admission?: Yes - Plan Summary Plan Summary: A/ POD#1 after ORIF of left ankle fracture Postoperative ileus, mutifactorial (Obesity, immobility, narcotics and general anesthesia, diabetes) Abdomen soft but very distended, positive bowel sounds, no flatus Abdominal acute Xray series shows diffusely distended small bowel, colon not well identified P/ Strict NPO NGT to low continuous suction IVF minimize all narcotics Up in chair and ambulation as tolerated and allowed by ortho Dulcolax suppository tid Replace K daily Xrays
[2018-08-29] MEDS ORDERED: ACETAMINOPHEN 1,000 MG/100 ML RTUPB IV ONE (10:41)
[2018-08-29] MEDS ORDERED: POTASSI CL 20 MEQ/NS 1L 1,000 ML IV PRN (10:44)
[2018-08-29] MEDS ORDERED: PHARMACY COMMUNICATION ORDER MC NR ×2 (11:00)
[2018-08-29] MEDS: HYDROMORPHONE HCL INJ/PF 2 MG/ML AMPULE IV PRN ×3 (11:41→20:09)
[2018-08-29] MEDS ORDERED: ONDANSETRON 4 MG TAB.RAPDIS NG PRN (12:00)
[2018-08-29] MEDS ORDERED: HYDRALAZINE HCL INJ/PF 20 MG/1 ML SDV IV PRN (12:03)
[2018-08-29] MEDS ORDERED: LABETALOL HCL INJ 20 MG/4 ML DISP.SYRIN IV PRN (12:07)
--- NOTE | 2018-08-29 12:25 | PDOC CONSULTATION ---
Consultation Consult Date: 08/29/18 Attending physician:: LUZ MARIA DARNELL Consult reason:: HTN/DM History of Present Illness Admission Date/PCP: 08/27/18 03:[facility] Patient complains of: Ankle pain History of Present Illness: TJ PIERCE is a 63 year old male Past Medical History Cardiac Medical History: Reports: Hyperlipidema, Hypertension Endocrine Medical History: Reports: Diabetes Mellitus Type 2 Psychiatric Medical History: Denies: Depression Past Surgical History Past Surgical History: Reports: None, Orthopedic Surgery, Other Social History Lives with: Family Smoking Status: Never Smoker Frequency of Alcohol Use: None Hx Recreational Drug Use: No Hx Prescription Drug Abuse: No - Advance Directive Resuscitation Status: Full Code Family History Family History: DM, Hypertension Family History: M - Diabetes/HTN Parental Family History Reviewed: Yes Children Family History Reviewed: No Sibling(s) Family History Reviewed.: Yes Medication/Allergy Home Medications: Amlodipine Besylate [Norvasc 10 mg Tablet] 10 mg PO DAILY 08/27/18 Atorvastatin Calcium [Lipitor] 80 mg PO QHS 08/27/18 Gabapentin Enacarbil [Horizant] 600 mg PO DAILY 08/27/18 Insulin Glargine,Hum.rec.anlog [Lantus Insulin 100 Unit/mL] 50 units SUBCUT QHS 08/27/18 Metoprolol Tartrate [Lopressor 25 mg Tablet] 25 mg PO BID 08/27/18 Omeprazole 20 mg PO BID 08/27/18 Oxycodone HCl [Oxy-Ir 5 mg Tablet] 30 mg PO Q4H PRN 08/27/18 Sitagliptin Phos/Metformin HCl [Janumet Xr 50-1,000 mg Tablet] 50 - 1,000 mg PO BID 08/27/18 Telmisartan/Hydrochlorothiazid [Telmisartan-Hctz 80-25 mg Tab] 1 tab PO DAILY 08/27/18 Terazosin HCl 10 mg PO DAILY 08/27/18 Allergies/Adverse Reactions: aspirin Allergy (Verified 08/27/18 01:23) shellfish derived Allergy (Verified 08/27/18 01:23) acetaminophen [From Tylenol] Adverse Reaction (Severe, Verified 08/29/18 11:18) Pruritis Review of Systems Constitutional: ABSENT: anorexia, chills, fever(s), headache(s), night sweats, weakness Nose, Mouth, and Throat: ABSENT: headache(s), mouth pain, vertigo Cardiovascular: ABSENT: chest pain, edema, orthropnea, palpitations Respiratory: ABSENT: cough, dyspnea Gastrointestinal: PRESENT: bloating, diarrhea, nausea. ABSENT: abdominal pain, dysphagia, vomiting Genitourinary: ABSENT: difficulty urinating Neurological: ABSENT: focal weakness Psychiatric: ABSENT: anxiety Endocrine: ABSENT: polydipsia Hematologic/Lymphatic: ABSENT: easy bleeding, easy bruising Physical Exam Vital Signs: Temp Pulse Resp BP Pulse Ox 99.1 F 112 H 18 188/86 H 100 08/29/18 08:16 08/29/18 08:16 08/29/18 08:16 08/29/18 08:16 08/29/18 08:16 Intake & Output 08/28/18 08/29/18 08/30/18 06:59 06:59 06:59 Intake Total 1139 3760 850 Output Total 1900 1907 260 Balance -761 1853 590 Weight 138.6 kg 140.2 kg General appearance: PRESENT: no acute distress, cooperative, obese Head exam: PRESENT: atraumatic Eye exam: PRESENT: EOMI. ABSENT: scleral icterus Mouth exam: PRESENT: moist, neck supple Neck exam: ABSENT: JVD, tenderness, thyromegaly, tracheal deviation Cardiovascular exam: PRESENT: RRR. ABSENT: diastolic murmur GI/Abdominal exam: PRESENT: distended, hypoactive bowel sounds, soft. ABSENT: ascites, guarding, organolmegaly, tenderness Extremities exam: ABSENT: calf tenderness Musculoskeletal exam: ABSENT: ambulatory Neurological exam: PRESENT: alert, awake, oriented to person, oriented to place, oriented to time, oriented to situation Results Laboratory Results: 08/29/18 07:19 08/29/18 07:19 08/29/18 08/29/18 07:19 07:19 WBC 11.0 H RBC 3.29 L Hgb 9.2 L Hct 26.9 L MCV 82 MCH 28.0 MCHC 34.2 RDW 15.4 H Plt Count 234 Seg Neutrophils % 75.2 Lymphocytes % 15.2 Monocytes % 9.5 Eosinophils % 0.0 Basophils % 0.1 Absolute Neutrophils 8.3 H Absolute Lymphocytes 1.7 Absolute Monocytes 1.0 Absolute Eosinophils 0.0 Absolute Basophils 0.0 Sodium 139.6 Potassium 3.6 Chloride 102 Carbon Dioxide 26 Anion Gap 12 BUN 11 Creatinine 0.97 Est GFR ( Amer) > 60 Est GFR (Non-Af Amer) > 60 Glucose 169 H Calcium 9.3 Impressions: Ankle X-Ray 08/28/18 00:00 IMPRESSION: IMAGE(S) OBTAINED DURING PROCEDURE. Fluoroscopy 08/28/18 00:00 IMPRESSION: IMAGE(S) OBTAINED DURING PROCEDURE. Acute Abdomen Series 08/29/18 00:00 IMPRESSION: No acute infiltrates Nonspecific bowel gas pattern with air-filled mildly distended small bowel loops, question ileus or sentinel loops Assessment & Plan - Diagnosis (1) Hyperlipidemia associated with type 2 diabetes mellitus Is this a current diagnosis for this admission?: Yes Plan: patient is currently NPO due to ileus. Ok to hold atorvastatin until able to advance diet (2) Diabetes Qualifiers: Diabetes mellitus type: type 2 Diabetes mellitus complication status: without complication Is this a current diagnosis for this admission?: Yes Plan: continue q 6 hr FSBGL and SSI. was on 50 units of lantus at home. being held due to being NPO. will monitor and see if it is needed during this admission. probab ly just need to reduce dose. Glucose of 150-180 is acceptable. (3) Hypertension Qualifiers: Hypertension type: essential hypertension Qualified Code(s): I10 - Essential (primary) hypertension Is this a current diagnosis for this admission?: Yes Plan: Is on several antihypertensive medications outpatient, ARB/BB/Alphablocker/thiazide diuretic/CCB. all being held due to being NPO. will start prn hydralazine and monitor BP. Restart home medications once able to advance diet (4) Ileus Is this a current diagnosis for this admission?: Yes Plan: Being followed by surgical services. NGT placed on 08/29/18. encouraged patient to sit up in bed. when medically safe can get to chair. prudent use of narcotics. will continue to follow. restart home oral medications once able to advance diet. - Time Time Spent: 30 to 50 Minutes Medications reviewed and adjusted accordingly: Yes Anticipated discharge: Home
--- NOTE | 2018-08-29 12:27 | RADIOLOGY REPORT (SQ) ---
EXAM DESCRIPTION: KUB/ABDOMEN (SINGLE VIEW) COMPLETED DATE/TIME: 08/29/2018 11:46 am REASON FOR STUDY: Check Placement of NG Tube COMPARISON: 08/29/2018 NUMBER OF VIEWS: One view. TECHNIQUE: Supine radiographic image of the abdomen acquired. LIMITATIONS: None. FINDINGS: Limited abdominal examination for placement of nasogastric tube. The tip of the tube lies in the region of the body of the stomach. IMPRESSION: 1. The distal tip of the nasogastric tube lies within the region of the body of stomach . TECHNICAL DOCUMENTATION: JOB ID: [id number] [employer]- All Rights Reserved Reading location - IP/workstation name: [email or web address]
[2018-08-29] MEDS: BISACODYL 10 MG SUPP.RECT PR SCH ×2 (15:28→17:14)
[2018-08-29] MEDS: LANSOPRAZOLE 15 MG TAB.RAP.DR NG SCH (17:14)
[2018-08-29] MEDS: NORMAL SALINE 1000 ML 1,000 ML IV PRN (20:14)
[2018-08-29] MEDS: INSULIN GLARGINE,HUM.REC.ANLOG 1,000 UNIT/10 ML VIAL (PYX) SUBCUT SCH (21:03)
[2018-08-29] MEDS ORDERED: ATORVASTATIN CALCIUM 80 MG TABLET NG SCH (22:00)
[2018-08-29] MEDS ORDERED: METOPROLOL TARTRATE 25 MG TABLET NG SCH (22:00)
[2018-08-30] MEDS: BISACODYL 10 MG SUPP.RECT PR SCH ×3 (04:13→18:05)
[2018-08-30] MEDS: HYDROMORPHONE HCL INJ/PF 2 MG/ML AMPULE IV PRN ×4 (04:16→20:07)
[2018-08-30] MEDS: CEFAZOLIN 2 GM/D5W RTU 2 GM/50 ML RTUPB IV SCH ×2 (06:11→16:28)
[2018-08-30 06:58] LABS: ANION GAP 9 (5-19); BLOOD UREA NITROGEN 11 mg/dL (7-20); CALCIUM 9.2 mg/dL (8.4-10.2); CARBON DIOXIDE 28 mmol/L (22-30); CHLORIDE 103 mmol/L (98-107); GLUCOSE 164 mg/dL (75-110); POTASSIUM 3.4 mmol/L (3.6-5.0); SODIUM 139.8 mmol/L (137-145)
--- NOTE | 2018-08-30 07:13 | PDOC PROGRESS REPORT ---
Subjective Progress Note for:: 08/30/18 Reason For Visit: TRIMALLEOLAR FRACTURE OF LEFT ANKLE 63-year-old black male status post left ankle ORIF 2 days ago. Postoperative course was notable for development of an ileus which has precluded participation in physical therapy. Physical Exam Vital Signs: Temp Pulse Resp BP Pulse Ox 37.7 C 100 18 153/71 H 98 08/29/18 23:58 08/29/18 23:58 08/29/18 23:58 08/29/18 23:58 08/29/18 23:58 Intake & Output 08/29/18 08/30/18 08/31/18 06:59 06:59 06:59 Intake Total 3760 2000 Output Total 1907 1540 Balance 1853 460 Weight 140.2 kg 140.3 kg Physical Exam: Large middle-aged black male lying in bed. The patient is alert, oriented, and appropriate this morning. There is been some issues in the recent 24 hours about mental confusion and this is been associated with tachycardia. General appearance: PRESENT: mild distress, obese Head exam: PRESENT: normocephalic Respiratory exam: PRESENT: unlabored Cardiovascular exam: PRESENT: RRR Vascular exam: PRESENT: normal capillary refill GI/Abdominal exam: PRESENT: soft Rectal exam: PRESENT: deferred Extremities exam: PRESENT: other - Left lower extremity immobilized in posterior plaster splint. The dressing is dry. There is brisk capillary refill to each of the digits. Neurological exam: PRESENT: alert, awake, oriented to person, oriented to place, oriented to time, oriented to situation. ABSENT: motor sensory deficit Psychiatric exam: PRESENT: appropriate affect, normal mood. ABSENT: homicidal ideation, suicidal ideation Skin exam: PRESENT: dry, intact, warm. ABSENT: cyanosis, rash Results Laboratory Results: 08/29/18 07:19 08/30/18 06:23 08/29/18 08/29/18 08/30/18 07:19 07:19 06:23 WBC 11.0 H RBC 3.29 L Hgb 9.2 L Hct 26.9 L MCV 82 MCH 28.0 MCHC 34.2 RDW 15.4 H Plt Count 234 Seg Neutrophils % 75.2 Lymphocytes % 15.2 Monocytes % 9.5 Eosinophils % 0.0 Basophils % 0.1 Absolute Neutrophils 8.3 H Absolute Lymphocytes 1.7 Absolute Monocytes 1.0 Absolute Eosinophils 0.0 Absolute Basophils 0.0 Sodium 139.6 139.8 Potassium 3.6 3.4 L Chloride 102 103 Carbon Dioxide 26 28 Anion Gap 12 9 BUN 11 11 Creatinine 0.97 1.00 Est GFR ( Amer) > 60 > 60 Est GFR (Non-Af Amer) > 60 > 60 Glucose 169 H 164 H Calcium 9.3 9.2 Impressions: Ankle X-Ray 08/28/18 00:00 IMPRESSION: IMAGE(S) OBTAINED DURING PROCEDURE. Fluoroscopy 08/28/18 00:00 IMPRESSION: IMAGE(S) OBTAINED DURING PROCEDURE. Acute Abdomen Series 08/29/18 00:00 IMPRESSION: No acute infiltrates Nonspecific bowel gas pattern with air-filled mildly distended small bowel loops, question ileus or sentinel loops KUB X-Ray 08/29/18 10:47 IMPRESSION: 1. The distal tip of the nasogastric tube lies within the region of the body of stomach. Status: Imported from PACS Assessment & Plan - Diagnosis (1) Diabetes Qualifiers: Diabetes mellitus type: type 2 Diabetes mellitus complication status: without complication Is this a current diagnosis for this admission?: Yes (2) Hypertension Qualifiers: Hypertension type: essential hypertension Qualified Code(s): I10 - Essentia l (primary) hypertension Is this a current diagnosis for this admission?: Yes (3) Trimalleolar fracture of left ankle Qualifiers: Encounter type: initial encounter Fracture type: closed Qualified Code(s): S82.852A - Displaced trimalleolar fracture of left lower leg, initial encounter for closed fracture Is this a current diagnosis for this admission?: Yes Plan: Mobilized with physical therapy and a touchdown weightbearing restriction left lower extremity. I am somewhat concerned about mental status changes in the face of tachycardia at with a possible underlying etiology of withdrawal. Patient will be started withdrawal protocol. (4) Ileus Is this a current diagnosis for this admission?: Yes - Time Time Spent with patient: 15-24 minutes Anticipated discharge: Other Within: Other
[2018-08-30] MEDS: INSULIN LISPRO 100 UNIT/ML 3 ML VIAL SUBCUT SCH ×4 (08:50→21:39)
--- NOTE | 2018-08-30 08:52 | RADIOLOGY REPORT (SQ) ---
EXAM DESCRIPTION: ACUTE ABDOMEN SERIES COMPLETED DATE/TIME: 08/30/2018 8:12 am REASON FOR STUDY: follow up ileus COMPARISON: ABDOMINAL FILMS 08/29/2018, 08/28/2018 CHEST FILM 03/26/2010 NUMBER OF VIEWS: Three views. TECHNIQUE: Frontal chest, supine abdomen and upright Abdomen radiographic images acquired. LIMITATIONS: None. FINDINGS: CHEST: Lungs clear of infiltrates. Cardiac silhouette size, farhat unremarkable. FREE AIR: None. No abnormal gas collections. BOWEL GAS PATTERN: Persistent air in stomach small bowel and colon, similar compared to 08/29/2018. Na sogastric tube seen 08/29/2018 has been removed. CALCIFICATIONS: No suspicious calcifications. HARDWARE: None in the abdomen. SOFT TISSUES: No gross mass or suggestion of organomegaly. BONES: No acute fracture. No worrisome bone lesions. OTHER: No other significant finding. IMPRESSION: No acute infiltrates. Persistent ileus pattern with mild gaseous distension of stomach small bowel and colon, similar jose manuel red to 08/29/2018 TECHNICAL DOCUMENTATION: JOB ID: [id number] [employer]- All Rights Reserved Reading location - IP/workstation name: [email or web address]
[2018-08-30] MEDS: LORAZEPAM INJ 2 MG/1 ML VIAL (TAPER DOSING) IV SCH ×2 (08:56→14:37)
[2018-08-30] MEDS ORDERED: AMLODIPINE BESYLATE 10 MG TABLET NG SCH (10:00)
[2018-08-30] MEDS ORDERED: LOSARTAN POTASSIUM 50 MG TABLET NG SCH (10:00)
[2018-08-30] MEDS ORDERED: HYDROCHLOROTHIAZIDE 25 MG TABLET NG SCH (10:00)
--- NOTE | 2018-08-30 10:11 | PDOC PROGRESS REPORT ---
Subjective Progress Note for:: 08/30/18 Subjective:: patient appears sleepy but arousable and oriented about place and situation Reason For Visit: TRIMALLEOLAR FRACTURE OF LEFT ANKLE Physical Exam Vital Signs: Temp Pulse Resp BP Pulse Ox 99.2 F 93 25 H 154/73 H 96 08/30/18 07:18 08/30/18 07:18 08/30/18 07:18 08/30/18 07:18 08/30/18 07:18 Intake & Output 08/29/18 08/30/18 08/31/18 06:59 06:59 06:59 Intake Total 3760 2000 Output Total 1907 1540 Balance 1853 460 Weight 140.2 kg 140.3 kg General appearance: PRESENT: cooperative, morbidly obese Respiratory exam: PRESENT: clear to auscultation frantz Cardiovascular exam: PRESENT: RRR GI/Abdominal exam: PRESENT: distended, soft Results Laboratory Results: 08/29/18 07:19 08/30/18 06:23 08/30/18 06:23 Sodium 139.8 Potassium 3.4 L Chloride 103 Carbon Dioxide 28 Anion Gap 9 BUN 11 Creatinine 1.00 Est GFR ( Amer) > 60 Est GFR (Non-Af Amer) > 60 Glucose 164 H Calcium 9.2 Impressions: Ankle X-Ray 08/28/18 00:00 IMPRESSION: IMAGE(S) OBTAINED DURING PROCEDURE. Fluoroscopy 08/28/18 00:00 IMPRESSION: IMAGE(S) OBTAINED DURING PROCEDURE. KUB X-Ray 08/29/18 10:47 IMPRESSION: 1. The distal tip of the nasogastric tube lies within the region of the body of stomach. Acute Abdomen Series 08/30/18 06:00 IMPRESSION: No acute infiltrates. Persistent ileus pattern with mild gaseous distension of stomach small bowel and colon, similar compared to 08/29/2018 Assessment & Plan - Diagnosis (1) Diabetes Qualifiers: Diabetes mellitus type: type 2 Diabetes mellitus complication status: without complication Is this a current diagnosis for this admission?: Yes (2) Hypertension Qualifiers: Hypertension type: essential hypertension Qualified Code(s): I10 - Essential (primary) hypertension Is this a current diagnosis for this admission?: Yes (3) Ileus Is this a current diagnosis for this admission?: Yes (4) Trimalleolar fracture of left ankle Qualifiers: Encounter type: initial encounter Fracture type: closed Qualified Code(s): S82.852A - Displaced trimalleolar fracture of left lower leg, initial encounter for closed fracture Is this a current diagnosis for this admission?: Yes (5) Acute pseudo-obstruction of intestine Is this a current diagnosis for this admission?: Yes - Plan Summary Plan Summary: A/ Acute intestinal pseudobstruction Patient has some flatus and stolls, still very distended this AM NGT accidentally pulled out by patient last night XRabdomen shows distended stomach and loops of small bowel with gas ad fluid Patient has become progressively confused during the night, posibleDT and he has been receiving treatment for this P/ Reinsert NGT Repeat obstructive series in AM Check lytes, CBC
[2018-08-30] MEDS ORDERED: PHARMACY COMMUNICATION ORDER MC NR (10:15)
[2018-08-30] MEDS: DOXAZOSIN MESYLATE 4 MG TABLET NG SCH (10:51)
[2018-08-30] MEDS: LANSOPRAZOLE 15 MG TAB.RAP.DR NG SCH ×2 (10:51→18:05)
--- NOTE | 2018-08-30 10:53 | Progress Note ---
Provider Note Provider Note: Despite long conversation with the patient daughter and (who were initially opposed to the procedure) about the necessity to insert a NGT into the patient to prevent aspiration of gastric content and potentially aspiration pneumonia/intubation/ and initial consent from the patient, the patient has ultimately refused to have the NGT placed. We will hold off insertion of the NGT and keep the patient NPO.
[2018-08-30] MEDS: POTASSI CL 20 MEQ/50 ML RIDER 20 MEQ/50 ML RTUPB IV SCH ×2 (11:39→14:09)
[2018-08-30] MEDS: NORMAL SALINE 1000 ML 1,000 ML IV PRN (11:54)
--- NOTE | 2018-08-30 13:25 | CONSULTATION REPORT E ---
Consultation Report NAME: TJ PIERCE : 1955 AGE: 63Y DATE: 08/30/2018 435 A TO: DAYNA SMITH M.D. FROM: TORRI MOSLEY M.D. Requesting Physician Consultation requested by Dr. Barton CONSULTATION REASON: Acute ankle pain management in the setting of chronic opioid management. HISTORY OF PRESENT ILLNESS: The patient is a 63-year-old black male with a past medical history significant for diabetes, hypertension, lumbar radiculopathy, chronic knee pain with a recent acute ankle fracture status post fall. He was evaluated on 08/27/18 after a fall on 08/26/2018 in the emergency room and fracture was identified on imaging. It was reduced, splinted, and sent to the Orthopedic Service for which fixation was performed. The patient, in the postoperative period, has developed an ileus. He had a NG tube placement that has since been removed by the patient accidentally overnight and remains NPO. He does note periods of stool and flatus over the last 24 hours. He is well known to our pain clinic and has been on chronic opioid management, high-dose opioids with a morphine equivalence of 270 MED. He has been transitioned to IV medicaiton post operatively given his ileus and NPO statues. He notes that his current IV medication of hydromorphone is helpful, but do not last more than 1 to 2 hours. He denies any withdrawal symptoms at this time. He denies any agitation, nausea, or vomiting. He denies any palpitations. He denies any side effects from the medications he is receiving right now. He notes that this particular regimen is not as helpful as his prior oral regimen. He denies any other symptoms other than his chronic back pain, which is unchanged in presentation. He still has continuing sciatica down his left leg, which he had noted prior to his fall. He states that he felt that his leg gave out and that is what led to the turning of his ankle in the first place. He was previously seen in our clinic on August 21 with the plan to get further updated imaging of his lower back to evaluate his new symptoms. He continues his diabetic management [facility]. PAST MEDICAL HISTORY: Noted: 1. Hyperlipidemia. 2. Hypertension. 3. Diabetes. PAST SURGICAL HISTORY: None. SOCIAL HISTORY: Denies smoking or illicits or alcohol. FAMILY HISTORY: Noncontributory. HOME MEDICATIONS: Of note, pain medications: 1. Gabapentin 600 mg daily BID 2. Oxycodone 15 mg for a total of q. 4 hours 1-2 tablets. See MAR for remaining medications. ALLERGIES: He notes an ASPIRIN ALLERGY, SHELLFISH ALLERGY, AND ACETAMINOPHEN ALLERGY. He notes allergies to PRIOR NSAIDS WELL. REVIEW OF SYSTEMS: As per his initial H and P and unchanged. PHYSICAL EXAMINATION: GENERAL: The patient is an obese, middle-aged man lying in no distress, easily arousable. He is alert and oriented and appropriate. No acute distress. HEENT: Normocephalic, atraumatic. RESPIRATORY: Unlabored. CARDIOVASCULAR: Regular rate and rhythm. Pulses present 2+ bilaterally. GASTROINTESTINAL/ABDOMEN: Soft, mildly tender in all 4 quadrants. Mildly distended. EXTREMITIES: Left lower extremity in appropriate dressing. NEUROLOGIC: Pleasant, alert and oriented x3. PSYCHIATRIC: Appropriate affect. Normal mood. SKIN: Dry, intact, warm. RESULTS: Per MAR for his most recent labs. ASSESSMENT AND PLAN: 1. Chronic back pain 2. Chronic knee pain 3. Acute ankle fracture s/p surgery 4. Post operative ileus The patient is on chronic opioid management with morphine equivalence of 270 from his oxycodone dosing at home. Given his current ileus post ankle surgery, he is aware that we will need to balance his opioids and his improvement in his ileus. He is aware that he should maintain on aggressive bowel regimen. We will continue to minimize his opioid requirement as much as possible to aid in his recovery of his bowel. He notes that he needs to continue to work on diabetic management as well since this most likely plays a role in his multifactorial development of his obstruction. The patient's NG tube is out today and they are making him n.p.o. with ice chips with slow advancement in his diet and will continue f/u with the surgical team and orthopedics. His current dosing of hydromorphone IV 0.25mg q. 2 hours is probably 25% of his overall MED baseline requirement. His dosing of his current IV regimen is about 75 compared to 270. Given this fact that he is about 48 hours since his regular dosing his chronic opioids, there is concern for the development of withdrawal. While minimizing increase in his IV medication (if needed to 0.5mg [id number] to be 50% of his MED), another option is consideration for transdermal clonidine. With advancement in his diet, he can return to his regular opioid regimen slowly with transition to oral clonidine, while monitoring for continued bowel function. In the interim, as I discussed with the patient, small increases in his IV medication, if necessary, would be best to allow slow recovery of bowel function. Given his allergy to Tylenol and NSAIDs, unfortunately, unable to provide these means of multimodal analgesia. With regards to followup in the Pain Clinic, he has an appointment set for this September 01. If he is not discharged by then, he will be seen beginning early next week and will be set up on discharge. With regards to his oral transition, if there are questions, please feel free to contact the [facility] and we will provide recommendations on oral transition once his diet has been advanced. DICTATING PHYSICIAN: DAYNA SMITH M.D. [id number] PHY#: [id number] ID: [id number] JOB#: [id number] ACCT: [id number] cc:DAYNA SMITH M.D. > MTDD
--- NOTE | 2018-08-30 15:48 | PDOC PROGRESS REPORT ---
Subjective Progress Note for:: 08/30/18 Subjective:: patient resting in bed. complains of some ankle pain. Last night patient was using a CPAP. When he took a CPAP off he pulled out his NG tube. Still has some abdominal distention. Per nursing staff and the patient he did have 3 bowel movements yesterday though. He continues to be followed by surgical services and at this point they are requesting that an NG tube be replaced. Reason For Visit: TRIMALLEOLAR FRACTURE OF LEFT ANKLE Physical Exam Vital Signs: Temp Pulse Resp BP Pulse Ox 99.2 F 93 18 160/84 H 98 08/30/18 11:22 08/30/18 11:22 08/30/18 11:22 08/30/18 11:22 08/30/18 11:22 Intake & Output 08/29/18 08/30/18 08/31/18 06:59 06:59 06:59 Intake Total 3760 2000 50 Output Total 1907 1540 Balance 1853 460 50 Weight 140.2 kg 140.3 kg General appearance: PRESENT: no acute distress, cooperative, obese Mouth exam: PRESENT: neck supple Neck exam: PRESENT: full ROM. ABSENT: JVD, lymphadenopathy, tenderness, thyromegaly, tracheal deviation Cardiovascular exam: PRESENT: RRR GI/Abdominal exam: PRESENT: diminished bowel sounds, distended, soft. ABSENT: ascites, guarding, organolmegaly Extremities exam: ABSENT: pedal edema Neurological exam: PRESENT: alert, oriented to person, oriented to place, oriented to time, oriented to situation Skin exam: PRESENT: dry, normal color, warm Results Laboratory Results: 08/29/18 07:19 08/30/18 06:23 08/30/18 06:23 Sodium 139.8 Potassium 3.4 L Chloride 103 Carbon Dioxide 28 Anion Gap 9 BUN 11 Creatinine 1.00 Est GFR ( Amer) > 60 Est GFR (Non-Af Amer) > 60 Glucose 164 H Calcium 9.2 Impressions: Ankle X-Ray 08/28/18 00:00 IMPRESSION: IMAGE(S) OBTAINED DURING PROCEDURE. Fluoroscopy 08/28/18 00:00 IMPRESSION: IMAGE(S) OBTAINED DURING PROCEDURE. Acute Abdomen Series 08/30/18 06:00 IMPRESSION: No acute infiltrates. Persistent ileus pattern with mild gaseous distension of stomach small bowel and colon, similar compared to 08/29/2018 Assessment & Plan - Diagnosis (1) Diabetes Qualifiers: Diabetes mellitus type: type 2 Diabetes mellitus complication status: wit hout complication Is this a current diagnosis for this admission?: Yes Plan: Continue sliding scale insulin. Patient remains n.p.o. (2) Hypertension Qualifiers: Hypertension type: essential hypertension Qualified Code(s): I10 - Essential (primary) hypertension Is this a current diagnosis for this admission?: Yes Plan: Patient is to be stable. Continue IV hydralazine as needed. Restart home medications once able to tolerate orals. (3) Ileus Is this a current diagnosis for this admission?: Yes Plan: Replace NG tube surgery to follow. Will restart home medications once able to tolerate orals (4) Hyperlipidemia associated with type 2 diabetes mellitus Is this a current diagnosis for this admission?: Yes Plan: Holding statin due to being n.p.o. Will restart a statin once he is able to tolerate oral medications. - Time Time Spent with patient: 25-34 minutes Medications reviewed and adjusted accordingly: Yes Anticipated discharge: Home
--- NOTE | 2018-08-30 16:09 | RADIOLOGY REPORT (SQ) ---
EXAM DESCRIPTION: KUB/ABDOMEN (SINGLE VIEW) COMPLETED DATE/TIME: 08/30/2018 3:44 pm REASON FOR STUDY: NG TUBE PLACEMENT COMPARISON: None. NUMBER OF VIEWS: One view. TECHNIQUE: Supine radiographic image of the abdomen acquired. LIMITATIONS: None. FINDINGS: The tip of the NG tube appears to be in the distal esophagus or in a small hiatal hernia. IMPRESSION: NG tube as described. TECHNICAL DOCUMENTATION: JOB ID: [id number] [employer]- All Rights Reserved Reading location - IP/workstation name: [email or web address]
--- NOTE | 2018-08-30 17:37 | RADIOLOGY REPORT (SQ) ---
EXAM DESCRIPTION: KUB/ABDOMEN (SINGLE VIEW) COMPLETED DATE/TIME: 08/30/2018 5:11 pm REASON FOR STUDY: NG tube placement COMPARISON: None. NUMBER OF VIEWS: One view. TECHNIQUE: Supine radiographic image of the abdomen acquired. LIMITATIONS: None. FINDINGS: The tip of the NG tube is now a in the region of the gastric antrum or pylorus. IMPRESSION: NG tube placement as described. TECHNICAL DOCUMENTATION: JOB ID: [id number] [employer]- All Rights Reserved Reading location - IP/workstation name: [email or web address]
[2018-08-30] MEDS: DIAZEPAM INJ 10 MG/2 ML DISP.SYRIN IV PRN (22:06)
[2018-08-31] MEDS: BISACODYL 10 MG SUPP.RECT PR SCH ×3 (02:35→17:47)
[2018-08-31] MEDS: HYDROMORPHONE HCL INJ/PF 2 MG/ML AMPULE IV PRN ×5 (02:44→22:01)
[2018-08-31] MEDS: DIAZEPAM INJ 10 MG/2 ML DISP.SYRIN IV PRN (05:23)
[2018-08-31] MEDS: NORMAL SALINE 1000 ML 1,000 ML IV PRN ×2 (05:43→17:53)
--- NOTE | 2018-08-31 07:12 | PDOC PROGRESS REPORT ---
Subjective Progress Note for:: 08/31/18 Reason For Visit: TRIMALLEOLAR FRACTURE OF LEFT ANKLE 63-year-old black male status post open reduction internal fixation of a left ankle fracture 3 days ago now postoperative course complicated by an ileus. Patient reports flatus overnight. Physical Exam Vital Signs: Temp Pulse Resp BP Pulse Ox 37.4 C 86 14 157/69 H 95 08/31/18 00:00 08/31/18 00:00 08/31/18 00:00 08/31/18 00:00 08/31/18 00:00 Intake & Output 08/30/18 08/31/18 09/01/18 06:59 06:59 06:59 Intake Total 2000 1100 Output Total 1540 350 Balance 460 750 Weight 140.3 kg 142 kg Physical Exam: Obese middle-aged black male lying in hospital bed with NG tube in place. General appearance: PRESENT: mild distress, obese Head exam: PRESENT: normocephalic Respiratory exam: PRESENT: unlabored Cardiovascular exam: PRESENT: RRR Vascular exam: PRESENT: normal capillary refill Musculoskeletal exam: PRESENT: other - Left lower extremity immobilized in a posterior plaster splint. Toes are visible. There is brisk capillary refill. Sensory examination examination is intact to light touch. Motor function to the great toe is intact. Neurological exam: PRESENT: alert, awake, oriented to person, oriented to place, oriented to time, oriented to situation. ABSENT: motor sensory deficit Skin exam: PRESENT: dry, intact, warm. ABSENT: cyanosis, rash Results Laboratory Results: 08/29/18 07:19 08/30/18 06:23 Impressions: Ankle X-Ray 08/28/18 00:00 IMPRESSION: IMAGE(S) OBTAINED DURING PROCEDURE. Fluoroscopy 08/28/18 00:00 IMPRESSION: IMAGE(S) OBTAINED DURING PROCEDURE. Acute Abdomen Series 08/30/18 06:00 IMPRESSION: No acute infiltrates. Persistent ileus pattern with mild gaseous distension of stomach small bowel and colon, similar compared to 08/29/2018 KUB X-Ray 08/30/18 15:14 IMPRESSION: NG tube as described. Status: Imported from PACS Assessment & Plan - Diagnosis (1) Diabetes Qualifiers: Diabetes mellitus type: type 2 Diabetes mellitus complication status: without complication Is this a current diagnosis for this admission?: Yes (2) Hypertension Qualifiers: Hypertension type: essential hypertension Qualified Code(s): I10 - Essential (primary) hypertension Is this a current diagnosis for this admission?: Yes (3) Trimalleolar fracture of left ankle Qualifiers: Encounter type: initial encounter Fracture type: closed Qualified Code(s): S82.852A - Displaced trimalleolar fracture of left lower leg, initial encounter for closed fracture Is this a current diagnosis for this admission?: Yes Plan: Mobilized with physical therapy and a touchdown weightbearing restriction when comorbidities permit (4) Ileus Is this a current diagnosis for this admission?: Yes - Time Time Spent with patient: 15-24 minutes Anticipated discharge: Home with Homehealth Within: Other
[2018-08-31 08:02] LABS: ABSOLUTE LYMPHOCYTES (AUTO) 2.3 10^3/uL (0.5-4.7); ABSOLUTE NEUT (AUTO) 5.6 10^3/uL (1.7-8.2); BASOPHILS % (AUTO) 0.6 % (0-2); EOSINOPHILS % (AUTO) 0.5 % (0-6); HEMATOCRIT 29.8 % (37.9-51.0); HEMOGLOBIN 9.9 g/dL (13.5-17.0); LYMPHOCYTES % (AUTO) 25.2 % (13-45); MEAN CORPUSCULAR HEMOGLOBIN 27.2 pg (27.0-33.4); MEAN CORPUSCULAR HGB CONC 33.3 g/dL (32.0-36.0); MEAN CORPUSCULAR VOLUME 82 fl (80-97); MONOCYTES % (AUTO) 11.5 % (3-13); PLATELET COUNT 279 10^3/uL (150-450); RED BLOOD COUNT 3.65 10^6/uL (4.35-5.55); RED CELL DISTRIBUTION WIDTH 15.1 % (11.5-14.0); SEGMENTED NEUTROPHILS % (AUTO) 62.2 % (42-78); TOTAL CELLS COUNTED % (AUTO) 100 %
[2018-08-31] MEDS: INSULIN LISPRO 100 UNIT/ML 3 ML VIAL SUBCUT SCH ×4 (08:09→21:21)
[2018-08-31 08:10] LABS: ANION GAP 10 (5-19); BLOOD UREA NITROGEN 13 mg/dL (7-20); CALCIUM 8.8 mg/dL (8.4-10.2); CARBON DIOXIDE 26 mmol/L (22-30); CHLORIDE 106 mmol/L (98-107); GLUCOSE 143 mg/dL (75-110); POTASSIUM 3.7 mmol/L (3.6-5.0); SODIUM 141.7 mmol/L (137-145)
[2018-08-31] MEDS: LANSOPRAZOLE 15 MG TAB.RAP.DR NG SCH ×2 (09:38→17:58)
[2018-08-31] MEDS: DOXAZOSIN MESYLATE 4 MG TABLET NG SCH (09:38)
--- NOTE | 2018-08-31 09:46 | RADIOLOGY REPORT (SQ) ---
EXAM DESCRIPTION: ACUTE ABDOMEN SERIES COMPLETED DATE/TIME: 08/31/2018 9:14 am REASON FOR STUDY: f/u pseudoobstruction COMPARISON: Previous day. NUMBER OF VIEWS: Three views. TECHNIQUE: Frontal chest, supine abdomen and upright/decubitus abdomen radiographic images acquired. LIMITATIONS: None. FINDINGS: CHEST: Lungs clear of infiltrates. FREE AIR: None. No abnormal gas collections. BOWEL GAS PATTERN: Abundant gas and fecal material in the colon. Dilated distal transverse colon 9 c m. Cecum is not dilated. CALCIFICATIONS: No suspicious calcifications. HARDWARE: None in the abdomen. SOFT TISSUES: No gross mass or suggestion of organomegaly. BONES: No acute fracture. No worrisome bone lesions. OTHER: No other significant finding. IMPRESSION: Partial colonic obstruction or pseudo-obstruction. Interval removal of NG tube. TECHNICAL DOCUMENTATION: JOB ID: [id number] [employer]- All Rights Reserved Reading location - IP/workstation name: [email or web address]
--- NOTE | 2018-08-31 13:10 | RADIOLOGY REPORT (SQ) ---
EXAM DESCRIPTION: KUB/ABDOMEN (SINGLE VIEW) COMPLETED DATE/TIME: 08/31/2018 12:18 pm REASON FOR STUDY: NG tube placement COMPARISON: None. NUMBER OF VIEWS: One view. TECHNIQUE: Supine radiographic image centered over upper abdomen acquired. LIMITATIONS: None. FINDINGS: BOWEL GAS PATTERN: Normal bowel gas pattern. No dilated loops. CALCIFICATIONS: No suspicious calcifications. SOFT TISSUES: No gross mass or suggestion of organomegaly. HARDWARE: None. BONES: No bone lesions or fracture. OTHER: Nasogastric tube tip overlying the stomach. IMPRESSION: Nasogastric tube in the stomach. Reading location - IP/workstation name: [email or web address]
[2018-08-31] MEDS: LIDOCAINE 5% (700 MG) TRANSDERMAL ADH..PATCH TP SCH (15:03)
--- NOTE | 2018-08-31 15:36 | PDOC PROGRESS REPORT ---
Subjective Progress Note for:: 08/31/18 Subjective:: Had bowel movement today and feels better. Reason For Visit: TRIMALLEOLAR FRACTURE OF LEFT ANKLE Physical Exam Vital Signs: Temp Pulse Resp BP Pulse Ox 98.6 F 82 17 152/79 H 95 08/31/18 11:40 08/31/18 11:40 08/31/18 11:40 08/31/18 11:40 08/31/18 11:40 Intake & Output 08/30/18 08/31/18 09/01/18 06:59 06:59 06:59 Intake Total 2000 1100 Output Total 1540 350 Balance 460 750 Weight 140.3 kg 142 kg General appearance: PRESENT: no acute distress Respiratory exam: PRESENT: clear to auscultation frantz Cardiovascular exam: PRESENT: RRR GI/Abdominal exam: PRESENT: other - Soft, mildly distended, nontender to palpation. Results Laboratory Results: 08/31/18 07:07 08/31/18 07:07 08/31/18 08/31/18 07:07 07:07 WBC 9.0 RBC 3.65 L Hgb 9.9 L Hct 29.8 L MCV 82 MCH 27.2 MCHC 33.3 RDW 15.1 H Plt Count 279 Seg Neutrophils % 62.2 Lymphocytes % 25.2 Monocytes % 11.5 Eosinophils % 0.5 Basophils % 0.6 Absolute Neutrophils 5.6 Absolute Lymphocytes 2.3 Absolute Monocytes 1.0 Absolute Eosinophils 0.0 Absolute Basophils 0.0 Sodium 141.7 Potassium 3.7 Chloride 106 Carbon Dioxide 26 Anion Gap 10 BUN 13 Creatinine 0.97 Est GFR ( Amer) > 60 Est GFR (Non-Af Amer) > 60 Glucose 143 H Calcium 8.8 Impressions: Ankle X-Ray 08/28/18 00:00 IMPRESSION: IMAGE(S) OBTAINED DURING PROCEDURE. Fluoroscopy 08/28/18 00:00 IMPRESSION: IMAGE(S) OBTAINED DURING PROCEDURE. Acute Abdomen Series 08/31/18 00:00 IMPRESSION: Partial colonic obstruction or pseudo-obstruction. Interval removal of NG tube. KUB X-Ray 08/31/18 00:00 IMPRESSION: Nasogastric tube in the stomach. Assessment & Plan - Diagnosis (1) Acute pseudo-obstruction of intestine Is this a current diagnosis for this admission?: Yes Plan: Patient improved with bowel function. We will keep the NG tube overnight and if his x-rays look good tomorrow will DC NG and allow the patient to eat.
--- NOTE | 2018-08-31 17:42 | PDOC PROGRESS REPORT ---
Subjective Progress Note for:: 08/31/18 Subjective:: patient resting in bed. complains of some ankle pain. Last night patient was using a CPAP. When he took a CPAP off he pulled out his NG tube. Still has some abdominal distention. Per nursing staff and the patient he did have 3 bowel movements yesterday though. He continues to be followed by surgical services and at this point they are requesting that an NG tube be replaced. Reason For Visit: TRIMALLEOLAR FRACTURE OF LEFT ANKLE Physical Exam Vital Signs: Temp Pulse Resp BP Pulse Ox 99.2 F 78 17 156/75 H 97 08/31/18 15:34 08/31/18 15:34 08/31/18 15:34 08/31/18 15:34 08/31/18 15:34 Intake & Output 08/30/18 08/31/18 09/01/18 06:59 06:59 06:59 Intake Total 2000 1100 Output Total 1540 350 Balance 460 750 Weight 140.3 kg 142 kg General appearance: PRESENT: no acute distress, cooperative, obese Eye exam: ABSENT: scleral icterus Mouth exam: PRESENT: moist, neck supple Neck exam: ABSENT: full ROM, JVD, lymphadenopathy, tenderness, thyromegaly, tracheal deviation Respiratory exam: PRESENT: clear to auscultation frantz, unlabored. ABSENT: accessory muscle use Cardiovascular exam: PRESENT: RRR. ABSENT: gallop, rubs GI/Abdominal exam: PRESENT: distended, hypoactive bowel sounds, soft. ABSENT: ascites, tenderness Extremities exam: ABSENT: tenderness Neurological exam: PRESENT: alert, oriented to person, oriented to place, oriented to time, oriented to situation Skin exam: PRESENT: dry, normal color, warm Results Laboratory Results: 08/31/18 07:07 08/31/18 07:07 08/31/18 08/31/18 07:07 07:07 WBC 9.0 RBC 3.65 L Hgb 9.9 L Hct 29.8 L MCV 82 MCH 27.2 MCHC 33.3 RDW 15.1 H Plt Count 279 Seg Neutrophils % 62.2 Lymphocytes % 25.2 Monocytes % 11.5 Eosinophils % 0.5 Basophils % 0.6 Absolute Neutrophils 5.6 Absolute Lymphocytes 2.3 Absolute Monocytes 1.0 Absolute Eosinophils 0.0 Absolute Basophils 0.0 Sodium 141.7 Potassium 3.7 Chloride 106 Carbon Dioxide 26 Anion Gap 10 BUN 13 Creatinine 0.97 Est GFR ( Amer) > 60 Est GFR (Non-Af Amer) > 60 Glucose 143 H Calcium 8.8 Impressions: Ankle X-Ray 08/28/18 00:00 IMPRESSION: IMAGE(S) OBTAINED DURING PROCEDURE. Fluoroscopy 08/28/18 00:00 IMPRESSION: IMAGE(S) OBTAINED DURING PROCEDURE. Acute Abdomen Series 08/31/18 00:00 IMPRESSION: Partial colonic obstruction or pseudo-obstruction. Interval removal of NG tube. KUB X-Ray 08/31/18 00:00 IMPRESSION: Nasogastric tube in the stomach. Assessment & Plan - Diagnosis (1) Diabetes Qualifiers: Diabetes mellitus type: type 2 Diabetes mellitus complication status: without complication Is this a current diagnosis for this admission?: Yes Plan: Continue sliding scale insulin. Patient remains n.p.o. (2) Hypertension Qualifiers: Hypertension type: essential hypertension Qualified Code(s): I10 - Essential (primary) hypertension Is this a current diagnosis for this admission?: Yes Plan: Patient is to be stable. Continue IV hydralazine as needed. Restart home medications once able to tolerate orals. (3) Ileus Is this a current diagnosis for this admission?: Yes Plan: Replace NG tube surgery to follow. Will restart home medications once able to tolerate orals (4) Hyperlipidemia associated with type 2 diabetes mellitus Is this a current diagnosis for this admission?: Yes Plan: Holding statin due to being n.p.o. Will restart a statin once he is able to tolerate oral medications. - Time Time Spent with patient: 15-24 minutes Medications reviewed and adjusted accordingly: Yes Anticipated discharge: Home
[2018-08-31] MEDS: PHARMACY COMMUNICATION ORDER MC SCH (21:21)
[2018-09-01] MEDS: BISACODYL 10 MG SUPP.RECT PR SCH ×3 (02:38→18:52)
[2018-09-01] MEDS: NORMAL SALINE 1000 ML 1,000 ML IV PRN ×2 (06:23→18:57)
[2018-09-01] MEDS: HYDROMORPHONE HCL INJ/PF 2 MG/ML AMPULE IV PRN ×3 (07:15→19:41)
[2018-09-01] MEDS: INSULIN LISPRO 100 UNIT/ML 3 ML VIAL SUBCUT SCH ×4 (08:06→21:44)
[2018-09-01 08:28] LABS: ABSOLUTE EOSINOPHILS # (AUTO) 0.1 10^3/uL (0.0-0.6); ABSOLUTE NEUT (AUTO) 5.2 10^3/uL (1.7-8.2); BASOPHILS % (AUTO) 0.2 % (0-2); EOSINOPHILS % (AUTO) 0.8 % (0-6); HEMATOCRIT 27.3 % (37.9-51.0); HEMOGLOBIN 9.3 g/dL (13.5-17.0); LYMPHOCYTES % (AUTO) 24.2 % (13-45); MEAN CORPUSCULAR HEMOGLOBIN 27.7 pg (27.0-33.4); MEAN CORPUSCULAR HGB CONC 33.9 g/dL (32.0-36.0); MEAN CORPUSCULAR VOLUME 82 fl (80-97); MONOCYTES % (AUTO) 11.6 % (3-13); PLATELET COUNT 274 10^3/uL (150-450); RED BLOOD COUNT 3.34 10^6/uL (4.35-5.55); SEGMENTED NEUTROPHILS % (AUTO) 63.2 % (42-78); TOTAL CELLS COUNTED % (AUTO) 100 %; WHITE BLOOD COUNT 8.2 10^3/uL (4.0-10.5)
--- NOTE | 2018-09-01 08:42 | PDOC PROGRESS REPORT ---
Subjective Progress Note for:: 09/01/18 Subjective:: patient denies abdominal pain, reports flatus and stools Reason For Visit: TRIMALLEOLAR FRACTURE OF LEFT ANKLE Physical Exam Vital Signs: Temp Pulse Resp BP Pulse Ox 99.1 F 72 16 183/78 H 96 08/31/18 19:17 08/31/18 19:17 08/31/18 19:17 08/31/18 19:17 08/31/18 19:17 Intake & Output 08/31/18 09/01/18 09/02/18 06:59 06:59 06:59 Intake Total 1100 2540 Output Total 350 400 200 Balance 750 2140 -200 Weight 142 kg 152.1 kg General appearance: PRESENT: no acute distress GI/Abdominal exam: PRESENT: soft - large for obesity, no tenderness, positive bowel sounds Results Laboratory Results: 09/01/18 07:46 09/01/18 07:46 WBC 8.2 RBC 3.34 L Hgb 9.3 L Hct 27.3 L MCV 82 MCH 27.7 MCHC 33.9 RDW 15.0 H Plt Count 274 Seg Neutrophils % 63.2 Lymphocytes % 24.2 Monocytes % 11.6 Eosinophils % 0.8 Basophils % 0.2 Absolute Neutrophils 5.2 Absolute Lymphocytes 2.0 Absolute Monocytes 1.0 Absolute Eosinophils 0.1 Absolute Basophils 0.0 Impressions: Ankle X-Ray 08/28/18 00:00 IMPRESSION: IMAGE(S) OBTAINED DURING PROCEDURE. Fluoroscopy 08/28/18 00:00 IMPRESSION: IMAGE(S) OBTAINED DURING PROCEDURE. Acute Abdomen Series 08/31/18 00:00 IMPRESSION: Partial colonic obstruction or pseudo-obstruction. Interval removal of NG tube. KUB X-Ray 08/31/18 00:00 IMPRESSION: Nasogastric tube in the stomach. Assessment & Plan - Diagnosis (1) Diabetes Qualifiers: Diabetes mellitus type: type 2 Diabetes mellitus complication status: without complication Is this a current diagnosis for this admission?: Yes (2) Hypertension Qualifiers: Hypertension type: essential hypertension Qualified Code(s): I10 - Essential (primary) hypertension Is this a current diagnosis for this admission?: Yes (3) Ileus Is this a current diagnosis for this admission?: Yes (4) Trimalleolar fracture of left ankle Qualifiers: Encounter type: initial encounter Fracture type: closed Qualified Code(s): S82.852A - Displaced trimalleolar fracture of left lower leg, initial encounter for closed fracture Is this a current diagnosis for this admission?: Yes (5) Acute pseudo-obstruction of intestine Is this a current diagnosis for this admission?: Yes - Plan Summary Plan Summary: A/ S/P ORIF left ankle fx Acute intestinal pseudobstruction bowel functionreturned with flatus adnstools x 4 P/ Clamp NGT x 3 hr and check residual Check Abdominal obstructive series Possibly, NGT can come out today and diet advanced
[2018-09-01 09:27] LABS: ANION GAP 11 (5-19); BLOOD UREA NITROGEN 16 mg/dL (7-20); CALCIUM 8.7 mg/dL (8.4-10.2); CARBON DIOXIDE 24 mmol/L (22-30); CHLORIDE 106 mmol/L (98-107); GLUCOSE 160 mg/dL (75-110); POTASSIUM 3.1 mmol/L (3.6-5.0); SODIUM 140.6 mmol/L (137-145)
--- NOTE | 2018-09-01 09:40 | RADIOLOGY REPORT (SQ) ---
EXAM DESCRIPTION: ABDOMEN 2 VIEWS COMPLETED DATE/TIME: 09/01/2018 9:25 am REASON FOR STUDY: Follow-up colonic pseudoobstruction COMPARISON: Abdominal films 08/31/2018, 08/30/2018, 08/29/2018, 08/28/2018 NUMBER OF VIEWS: Two views. TECHNIQUE: Supine and erect radiographic images of the abdomen acquired. LIMITATIONS: None. FINDINGS: FREE AIR: None. No abnormal gas collections. LUNG BASES: Clear. BOWEL GAS PATTERN: Nasogastric tube decompresses the stomach. There are persistent air-filled disten ded loops of colon and small bowel in the abdomen, overall degree of gaseous distention is decreased compared to 08/28/2018. Moderate stool in the descending colon. CALCIFICATIONS: No suspicious calcifications. SOFT TISSUES: No gross mass or suggestion of organomegaly. HARDWARE: Penile prosthesis BONES: No acute fracture. No worrisome bone lesions. OTHER: No other significant finding. IMPRESSION: Nasogastric tube decompresses the stomach. Persistent air-filled small bowel loops and colon loops in the mid abdomen. Decreased gaseous disten tion is decreased compared to 08/28/2018. There is now moderate stool in the descending colon. TECHNICAL DOCUMENTATION: JOB ID: [id number] [employer]- All Rights Reserved Reading location - IP/workstation name: [email or web address]
[2018-09-01] MEDS ORDERED: MAGNESIUM CITRATE 296 ML BOTTLE PO ONE (11:30)
[2018-09-01] MEDS: POTASSI CL 20 MEQ/50 ML RIDER 20 MEQ/50 ML RTUPB IV SCH ×3 (12:08→16:49)
[2018-09-01] MEDS: DOXAZOSIN MESYLATE 4 MG TABLET NG SCH (12:08)
[2018-09-01] MEDS: LANSOPRAZOLE 15 MG TAB.RAP.DR NG SCH ×2 (12:08→18:58)
[2018-09-01] MEDS: LIDOCAINE 5% (700 MG) TRANSDERMAL ADH..PATCH TP SCH (12:10)
--- NOTE | 2018-09-01 13:02 | PDOC PROGRESS REPORT ---
Subjective Progress Note for:: 09/01/18 Reason For Visit: TRIMALLEOLAR FRACTURE OF LEFT ANKLE 63-year-old black male status post ORIF of the left ankle fracture now with postoperative ileus which is interfered with his ability to mobilize. Overall things seem to be resolving in terms of his GI distress although the NG tube remains intact and the patient remains n.p.o. Physical Exam Vital Signs: Temp Pulse Resp BP Pulse Ox 36.8 C 69 17 166/74 H 96 09/01/18 08:42 09/01/18 08:42 09/01/18 08:42 09/01/18 08:42 09/01/18 08:42 Intake & Output 08/31/18 09/01/18 09/02/18 06:59 06:59 06:59 Intake Total 1100 2540 Output Total 350 400 200 Balance 750 2140 -200 Weight 142 kg 152.1 kg Physical Exam: Obese middle-aged black male lying in a hospital bed in minor distress. Children are in the room with him. General appearance: PRESENT: no acute distress, mild distress, obese Head exam: PRESENT: normocephalic Respiratory exam: PRESENT: unlabored Cardiovascular exam: PRESENT: RRR Vascular exam: PRESENT: normal capillary refill Extremities exam: PRESENT: other - Left lower extremity posterior plaster splint. Toes are accessible. There is brisk capillary refill, sensory examination is intact. Motor function to the great toe flexion and extension are intact. Neurological exam: PRESENT: alert, awake, oriented to person, oriented to place, oriented to time, oriented to situation. ABSENT: motor sensory deficit Psychiatric exam: PRESENT: appropriate affect, normal mood. ABSENT: homicidal ideation, suicidal ideation Skin exam: PRESENT: dry, intact, warm. ABSENT: cyanosis, rash Results Laboratory Results: 09/01/18 07:46 09/01/18 07:46 09/01/18 09/01/18 07:46 07:46 WBC 8.2 RBC 3.34 L Hgb 9.3 L Hct 27.3 L MCV 82 MCH 27.7 MCHC 33.9 RDW 15.0 H Plt Count 274 Seg Neutrophils % 63.2 Lymphocytes % 24.2 Monocytes % 11.6 Eosinophils % 0.8 Basophils % 0.2 Absolute Neutrophils 5.2 Absolute Lymphocytes 2.0 Absolute Monocytes 1.0 Absolute Eosinophils 0.1 Absolute Basophils 0.0 Sodium 140.6 Potassium 3.1 L Chloride 106 Carbon Dioxide 24 Anion Gap 11 BUN 16 Creatinine 0.90 Est GFR ( Amer) > 60 Est GFR (Non-Af Amer) > 60 Glucose 160 H Calcium 8.7 Impressions: Ankle X-Ray 08/28/18 00:00 IMPRESSION: IMAGE(S) OBTAINED DURING PROCEDURE. Fluoroscopy 08/28/18 00:00 IMPRESSION: IMAGE(S) OBTAINED DURING PROCEDURE. Acute Abdomen Series 08/31/18 00:00 IMPRESSION: Partial colonic obstruction or pseudo-obstruction. Interval removal of NG tube. KUB X-Ray 08/31/18 00:00 IMPRESSION: Nasogastric tube in the stomach. Abdomen X-Ray 09/01/18 07:00 IMPRESSION: Nasogastric tube decompresses the stomach. Persistent air-filled small bowel loops and colon loops in the mid abdomen. Decreased gaseous distention is decreased compared to 08/28/2018. There is now moderate stool in the descending colon. Status: Imported from PACS Assessment & Plan - Diagnosis (1) Diabetes Qualifiers: Diabetes mellitus type: type 2 Diabetes mellitus complication status: without complication Is this a current diagnosis for this admission?: Yes (2) Hypertension Qualifiers: Hypertension type: essential hypertension Qualified Code(s): I10 - Essential (primary) hypertension Is this a current diagnosis for this admission?: Yes (3) Trimalleolar fracture of left ankle Qualifiers: Encounter type: initial encounter Fracture type: closed Qualified Code(s): S82.852A - Displaced trimalleolar fracture of left lower leg, initial encounter for closed fracture Is this a current diagnosis for this admission?: Yes Plan: Continue to mobilize as tolerated with physical therapy and a touchdown weightbearing restriction on the left extremity (4) Ileus Is this a current diagnosis for this admission?: Yes Plan: Management per the surgical service - Time Time Spent with patient: 15-24 minutes Anticipated discharge: Home with Homehealth Within: Other
[2018-09-01] MEDS ORDERED: POTASSI CL 20 MEQ/50 ML RIDER 20 MEQ/50 ML RTUPB IV ONE (18:18)
[2018-09-01 19:49] LABS: ANION GAP 10 (5-19); BLOOD UREA NITROGEN 16 mg/dL (7-20); CALCIUM 8.6 mg/dL (8.4-10.2); CARBON DIOXIDE 27 mmol/L (22-30); CHLORIDE 104 mmol/L (98-107); GLUCOSE 153 mg/dL (75-110); SODIUM 141.3 mmol/L (137-145)
[2018-09-01] MEDS: POTASSIUM CHLORIDE 20 MEQ/50 ML RTU IV SCH (22:27)
[2018-09-01] MEDS: PHARMACY COMMUNICATION ORDER MC SCH (22:27)
[2018-09-02] MEDS: HYDROMORPHONE HCL INJ/PF 2 MG/ML AMPULE IV PRN ×2 (00:53→05:56)
[2018-09-02] MEDS: POTASSIUM CHLORIDE 20 MEQ/50 ML RTU IV SCH ×5 (00:53→22:52)
[2018-09-02] MEDS: BISACODYL 10 MG SUPP.RECT PR SCH (04:18)
[2018-09-02 06:56] LABS: ABSOLUTE EOSINOPHILS # (AUTO) 0.1 10^3/uL (0.0-0.6); ABSOLUTE LYMPHOCYTES (AUTO) 2.2 10^3/uL (0.5-4.7); ABSOLUTE NEUT (AUTO) 5.2 10^3/uL (1.7-8.2); BASOPHILS % (AUTO) 0.4 % (0-2); EOSINOPHILS % (AUTO) 1.1 % (0-6); HEMATOCRIT 29.6 % (37.9-51.0); HEMOGLOBIN 9.8 g/dL (13.5-17.0); LYMPHOCYTES % (AUTO) 25.7 % (13-45); MEAN CORPUSCULAR HEMOGLOBIN 27.2 pg (27.0-33.4); MEAN CORPUSCULAR HGB CONC 33.1 g/dL (32.0-36.0); MEAN CORPUSCULAR VOLUME 82 fl (80-97); MONOCYTES % (AUTO) 11.4 % (3-13); PLATELET COUNT 282 10^3/uL (150-450); RED BLOOD COUNT 3.59 10^6/uL (4.35-5.55); RED CELL DISTRIBUTION WIDTH 15.2 % (11.5-14.0); SEGMENTED NEUTROPHILS % (AUTO) 61.4 % (42-78); TOTAL CELLS COUNTED % (AUTO) 100 %; WHITE BLOOD COUNT 8.5 10^3/uL (4.0-10.5)
--- NOTE | 2018-09-02 07:12 | PDOC PROGRESS REPORT ---
Subjective Progress Note for:: 09/02/18 Reason For Visit: TRIMALLEOLAR FRACTURE OF LEFT ANKLE 63-year-old black male now postop day 5 status post open reduction internal fixation of a left ankle fracture with a postoperative ileus which has slowed recovery. Patient continues to have upper GI symptoms yesterday and NG remains in place. Physical Exam Vital Signs: Temp Pulse Resp BP Pulse Ox 37.1 C 68 17 161/70 H 96 09/01/18 23:38 09/01/18 23:38 09/01/18 23:38 09/01/18 23:38 09/01/18 23:38 Intake & Output 09/01/18 09/02/18 09/03/18 06:59 06:59 07:59 Intake Total 2540 2596 Output Total 400 2200 Balance 2140 396 Weight 152.1 kg 135.5 kg General appearance: PRESENT: no acute distress, mild distress, obese Head exam: PRESENT: normocephalic Respiratory exam: PRESENT: unlabored Cardiovascular exam: PRESENT: RRR Vascular exam: PRESENT: normal capillary refill Extremities exam: PRESENT: other - Left lower extremity immobilized in a posterior plaster splint. Toes are visible. Distal neurovascular examination is intact. Results Laboratory Results: 09/02/18 06:07 09/01/18 09/01/18 09/01/18 07:46 07:46 19:00 WBC 8.2 RBC 3.34 L Hgb 9.3 L Hct 27.3 L MCV 82 MCH 27.7 MCHC 33.9 RDW 15.0 H Plt Count 274 Seg Neutrophils % 63.2 Lymphocytes % 24.2 Monocytes % 11.6 Eosinophils % 0.8 Basophils % 0.2 Absolute Neutrophils 5.2 Absolute Lymphocytes 2.0 Absolute Monocytes 1.0 Absolute Eosinophils 0.1 Absolute Basophils 0.0 Sodium 140.6 141.3 Potassium 3.1 L 3.0 L* Chloride 106 104 Carbon Dioxide 24 27 Anion Gap 11 10 BUN 16 16 Creatinine 0.90 1.00 Est GFR ( Amer) > 60 > 60 Est GFR (Non-Af Amer) > 60 > 60 Glucose 160 H 153 H Calcium 8.7 8.6 09/02/18 06:07 WBC 8.5 RBC 3.59 L Hgb 9.8 L Hct 29.6 L MCV 82 MCH 27.2 MCHC 33.1 RDW 15.2 H Plt Count 282 Seg Neutrophils % 61.4 Lymphocytes % 25.7 Monocytes % 11.4 Eosinophils % 1.1 Basophils % 0.4 Absolute Neutrophils 5.2 Absolute Lymphocytes 2.2 Absolute Monocytes 1.0 Absolute Eosinophils 0.1 Absolute Basophils 0.0 Sodium Potassium Chloride Carbon Dioxide Anion Gap BUN Creatinine Est GFR ( Amer) Est GFR (Non-Af Amer) Glucose Calcium Impressions: Ankle X-Ray 08/28/18 00:00 IMPRESSION: IMAGE(S) OBTAINED DURING PROCEDURE. Fluoroscopy 08/28/18 00:00 IMPRESSION: IMAGE(S) OBTAINED DURING PROCEDURE. Acute Abdomen Series 08/31/18 00:00 IMPRESSION: Partial colonic obstruction or pseudo-obstruction. Interval removal of NG tube. KUB X-Ray 08/31/18 00:00 IMPRESSION: Nasogastric tube in the stomach. Abdomen X-Ray 09/01/18 07:00 IMPRESSION: Nasogastric tube decompresses the stomach. Persistent air-filled small bowel loops and colon loops in the mid abdomen. Decreased gaseous distention is decreased compared to 08/28/2018. There is now moderate stool in the descending colon. Assessment & Plan - Diagnosis (1) Diabetes Qualifiers: Diabetes mellitus type: type 2 Diabetes mellitus complication status: without complication Is this a current diagnosis for this admission?: Yes (2) Hypertension Qualifiers: Hypertension type: essential hypertension Qualified Code(s): I10 - Essential (primary) hypertension Is this a current diagnosis for this admission?: Yes (3) Trimalleolar fracture of left ankle Qualifiers: Encounter type: initial encounter Fracture type: closed Qualified Code(s): S82.852A - Displaced trimalleolar fracture of left lower leg, initial encounter for closed fracture Is this a current diagnosis for this admission?: Yes Plan: Mobilized with physical therapy as tolerated with medical comorbidities. Maintain a touchdown weightbearing restriction on the left lower extremity. (4) Ileus Is this a current diagnosis for this admission?: Yes - Time Time Spent with patient: 15-24 minutes Anticipated discharge: Home with Homehealth Within: Other
[2018-09-02 07:17] LABS: ANION GAP 15 (5-19); BLOOD UREA NITROGEN 14 mg/dL (7-20); CALCIUM 8.7 mg/dL (8.4-10.2); CARBON DIOXIDE 20 mmol/L (22-30); CHLORIDE 107 mmol/L (98-107); GLUCOSE 180 mg/dL (75-110); POTASSIUM 3.3 mmol/L (3.6-5.0); SODIUM 141.9 mmol/L (137-145)
--- NOTE | 2018-09-02 07:34 | PDOC PROGRESS REPORT ---
Subjective Progress Note for:: 09/02/18 Subjective:: No c/o, large BM this AM Reason For Visit: TRIMALLEOLAR FRACTURE OF LEFT ANKLE Physical Exam Vital Signs: Temp Pulse Resp BP Pulse Ox 98.7 F 68 17 161/70 H 96 09/01/18 23:38 09/01/18 23:38 09/01/18 23:38 09/01/18 23:38 09/01/18 23:38 Intake & Output 09/01/18 09/02/18 09/03/18 06:59 06:59 07:59 Intake Total 2540 2596 Output Total 400 2200 Balance 2140 396 Weight 152.1 kg 135.5 kg General appearance: PRESENT: no acute distress Respiratory exam: PRESENT: clear to auscultation frantz Cardiovascular exam: PRESENT: RRR GI/Abdominal exam: PRESENT: normal bowel sounds, soft Results Laboratory Results: 09/02/18 06:07 09/02/18 06:07 09/01/18 09/01/18 09/01/18 07:46 07:46 19:00 WBC 8.2 RBC 3.34 L Hgb 9.3 L Hct 27.3 L MCV 82 MCH 27.7 MCHC 33.9 RDW 15.0 H Plt Count 274 Seg Neutrophils % 63.2 Lymphocytes % 24.2 Monocytes % 11.6 Eosinophils % 0.8 Basophils % 0.2 Absolute Neutrophils 5.2 Absolute Lymphocytes 2.0 Absolute Monocytes 1.0 Absolute Eosinophils 0.1 Absolute Basophils 0.0 Sodium 140.6 141.3 Potassium 3.1 L 3.0 L* Chloride 106 104 Carbon Dioxide 24 27 Anion Gap 11 10 BUN 16 16 Creatinine 0.90 1.00 Est GFR ( Amer) > 60 > 60 Est GFR (Non-Af Amer) > 60 > 60 Glucose 160 H 153 H Calcium 8.7 8.6 09/02/18 09/02/18 06:07 06:07 WBC 8.5 RBC 3.59 L Hgb 9.8 L Hct 29.6 L MCV 82 MCH 27.2 MCHC 33.1 RDW 15.2 H Plt Count 282 Seg Neutrophils % 61.4 Lymphocytes % 25.7 Monocytes % 11.4 Eosinophils % 1.1 Basophils % 0.4 Absolute Neutrophils 5.2 Absolute Lymphocytes 2.2 Absolute Monocytes 1.0 Absolute Eosinophils 0.1 Absolute Basophils 0.0 Sodium 141.9 Potassium 3.3 L Chloride 107 Carbon Dioxide 20 L Anion Gap 15 BUN 14 Creatinine 0.98 Est GFR ( Amer) > 60 Est GFR (Non-Af Amer) > 60 Glucose 180 H Calcium 8.7 Impressions: Ankle X-Ray 08/28/18 00:00 IMPRESSION: IMAGE(S) OBTAINED DURING PROCEDURE. Fluoroscopy 08/28/18 00:00 IMPRESSION: IMAGE(S) OBTAINED DURING PROCEDURE. Acute Abdomen Series 08/31/18 00:00 IMPRESSION: Partial colonic obstruction or pseudo-obstruction. Interval removal of NG tube. KUB X-Ray 08/31/18 00:00 IMPRESSION: Nasogastric tube in the stomach. Abdomen X-Ray 09/01/18 07:00 IMPRESSION: Nasogastric tube decompresses the stomach. Persistent air-filled small bowel loops and colon loops in the mid abdomen. Decreased gaseous distention is decreased compared to 08/28/2018. There is now moderate stool in the descending colon. Assessment & Plan - Diagnosis (1) Diabetes Qualifiers: Diabetes mellitus type: type 2 Diabetes mellitus complication status: without complication Is this a current diagnosis for this admission?: Yes (2) Hypertension Qualifiers: Hypertension type: essential hypertension Qualified Code(s): I10 - Essential (primary) hypertension Is this a current diagnosis for this admission?: Yes (3) Ileus Is this a current diagnosis for this admission?: Yes (4) Trimalleolar fracture of left ankle Qualifiers: Encounter type: initial encounter Fracture type: closed Qualified Code(s): S82.852A - Displaced trimalleolar fracture of left lower leg, initial encounter for closed fracture Is this a current diagnosis for this admission?: Yes (5) Acute pseudo-obstruction of intestine Is this a current diagnosis for this admission?: Yes - Plan Summary Plan Summary: A/ Bowel function returned with several BM yesterday and one large this AM Scant NGT output Low K 3.3 despite aggressive replacement P/ remove NGT Clear liquid diet, full liquid tonight Replace K Check Magnesium level
[2018-09-02] MEDS ORDERED: TRAMADOL HCL 50 MG TABLET PO PRN (07:40)
[2018-09-02] MEDS: INSULIN LISPRO 100 UNIT/ML 3 ML VIAL SUBCUT SCH ×4 (09:13→22:54)
[2018-09-02] MEDS: DOXAZOSIN MESYLATE 4 MG TABLET NG SCH (09:23)
[2018-09-02] MEDS: LANSOPRAZOLE 15 MG TAB.RAP.DR NG SCH (09:23)
[2018-09-02] MEDS: LIDOCAINE 5% (700 MG) TRANSDERMAL ADH..PATCH TP SCH (09:24)
[2018-09-02] MEDS: NORMAL SALINE 1000 ML 1,000 ML IV PRN ×2 (09:26→22:57)
--- NOTE | 2018-09-02 13:38 | RADIOLOGY REPORT (SQ) ---
EXAM DESCRIPTION: ACUTE ABDOMEN SERIES COMPLETED DATE/TIME: 09/02/2018 9:17 am REASON FOR STUDY: sbo COMPARISON: 319 NUMBER OF VIEWS: Three views. TECHNIQUE: PA chest, supine abdomen and upright/decubitus abdomen radiographic images acquired. LIMITATIONS: None. FINDINGS: CHEST: Lungs clear of infiltrates. FREE AIR: None. No abnormal gas collections. BOWEL GAS PATTERN: Few scattered small bowel loops with air fluid levels. No distended large or small bowel loops. CALCIFICATIONS: No suspicious calcifications. HARDWARE: None in the abdomen. SOFT TISSUES: No gross mass or suggestion of organomegaly. BONES: No acute fracture. No worrisome bone lesions. OTHER: Interval removal of nasogastric tube. IMPRESSION: NONSPECIFIC BOWEL GAS PATTERN WITHOUT EVIDENCE FOR OBSTRUCTION. TECHNICAL DOCUMENTATION: JOB ID: [id number] [email or web address]- All Rights Reserved Reading location - IP/workstation name: [email or web address]
[2018-09-02] MEDS ORDERED: AMLODIPINE BESYLATE 10 MG TABLET PO SCH (15:00)
[2018-09-02] MEDS ORDERED: METOPROLOL TARTRATE 25 MG TABLET PO SCH (15:30)
[2018-09-02] MEDS ORDERED: TRAMADOL HCL 50 MG TABLET NG PRN (15:30)
--- NOTE | 2018-09-02 17:33 | PROGRESS NOTE E ---
Progress Note NAME: TJ PIERCE : 1955 AGE: 63Y DATE: 09/01/2018 ROOM: 435 SUBJECTIVE: The patient is currently lying in bed. He states he feels a little better every day. The patient has been seen by Surgery and his tube is to be pulled. The patient has had no reported episodes of vomiting nor diarrhea, passing gas. Patient does not voice any significant concerns at this time. REVIEW OF SYSTEMS: The rest of the review of systems is negative. MEDICATION: Reviewed. OBJECTIVE: GENERAL: The patient is a 63-year-old -[place] male who is awake, alert. He is oriented to person, place, time and situation. He is verbal and conversational. Does not appear to be distressed. VITAL SIGNS: Temperature is 98.5, pulse 73, respirations 18, blood pressure 166/75 and oxygen saturation 92% on room air. SKIN: Warm and dry. No rash. He is not diaphoretic. HEENT: Pupils are equal, round, reactive to light and accommodation. Conjunctivae are pink. No evidence of JVP. CVS: Heart is regular. There is no rub. CHEST: Clear, symmetrical, unlabored. ABDOMEN: Soft, nontender. EXTREMITIES: No clubbing, cyanosis or edema. DIAGNOSTICS: Lab values are as follows: Hematology obtained on 09/01/2018: WBCs are 8.2, hemoglobin is 9.3, hematocrit is 27.3, platelet count is 274,000. Chemistry obtained on 09/01/2018: Sodium is 141, potassium 3.7, chloride is 104, carbon dioxide 27, BUN 16, creatinine is 1. Glucose 153, calcium is 8.6, magnesium is 2.0. IMPRESSION AND PLAN: 1. HYPERTENSION. Should the patient's tube be pulled today, we will go ahead and resume his home medications. He does have sliding scale hydralazine as needed. 2. DIABETES MELLITUS TYPE 2. Continue sliding scale coverage. The patient remains n.p.o. 3. ILEUS. Management as per Surgery. 4. HYPERLIPIDEMIA. The patient is currently not taking a statin. Will resume this once the patient is taking p.o. 5. FRACTURE OF THE LEFT ANKLE. The patient has been mobilized with Physical Therapy. The patient is on touchdown weightbearing restriction of the left lower extremity. DISPOSITION: The patient is a FULL CODE. Pending patient's symptomatology and diagnostic findings, will reevaluate in the a.m. Time spent on this followup, including assessment, plan, physical examination, patient education and review of records is 25 minutes. DICTATING PHYSICIAN: MAYNOR OLMOS NP [id number] PHY#: [id number] ID: [id number] JOB#: [id number] ACCT: [id number] cc: >
[2018-09-02] MEDS: LANSOPRAZOLE 15 MG TAB.RAP.DR PO SCH (17:39)
[2018-09-02] MEDS ORDERED: AMLODIPINE BESYLATE 10 MG TABLET PO ONE (18:00)
--- NOTE | 2018-09-02 19:33 | PROGRESS NOTE E ---
Progress Note NAME: TJ PIERCE : 1955 AGE: 63Y DATE: 09/02/2018 ROOM: 435 SUBJECTIVE: The patient is currently lying in bed. He states he feels much better today. The patient has completed his clear liquid tray. The patient denies any nausea, vomiting, diarrhea. No shortness of breath, dizziness, chest pain. No fevers or chills. The patient has been afebrile. His blood pressures have been significantly elevated and the patient does not voice any other concerns at this time. REVIEW OF SYSTEMS: The rest of the review of systems negative. MEDICATIONS: Have been reviewed. OBJECTIVE: GENERAL: The patient is a 63-year-old -[place] male who is awake, alert, and oriented to person, time, place, situation. He is verbal, conversational. He does not appear to be in any acute distress. VITAL SIGNS: Temperature is 99.0, pulse 69, respirations 18, blood pressure is 182/77, oxygen saturation is 97% on room air. SKIN: Warm and dry. No rash. He is not diaphoretic. HEENT: Pupils equal, round, and reactive to light and accommodation. Conjunctivae are pink. No evidence of JVP. CARDIOVASCULAR: Heart is regular. There is no murmur or rub. CHEST: Clear, symmetrical, unlabored. ABDOMEN: Soft, nontender. EXTREMITIES: No clubbing, cyanosis, or edema. PSYCHIATRIC: Appropriate affect, pleasant mood. DIAGNOSTICS: Lab values are as follows - hematology obtained on 09/02/2018; WBC is 8.5, hemoglobin is 9.8, hematocrit is 29.6, platelet count is 283,000. Chemistry obtained on 09/02/2018; sodium is 141, potassium is 3.3, chloride 107, carbon dioxide is 20, BUN 14, creatinine 0.98, glucose 180, calcium is 8.7. IMPRESSION AND PLAN: 1. DIABETES MELLITUS TYPE 2. On A and B, will continue sliding scale coverage, gradually resume home medications now that he is taking p.o. 2. HYPERTENSION. Have resumed the patient's home blood pressure medication. To continue IV hydralazine. 3. ILEUS. Management as per surgery. Does appear improved. 4. HYPERLIPIDEMIA. Will continue statin. 5. TRIMALLEOLAR FRACTURE ON THE LEFT EXTREMITY. Management as per orthopedics. CODE STATUS: The patient is a full code. DISPOSITION: Depending on the patient's symptomatology and diagnostic findings will reevaluate in the a.m. TIME SPENT: On this follow up, including assessment and plan, physical examination, patient education, review of records is 25 minutes. DICTATING PHYSICIAN: MAYNOR OLMOS NP [id number] PHY#: [id number] ID: [id number] JOB#: [id number] ACCT: [id number] cc: >
[2018-09-02 19:52] LABS: ANION GAP 8 (5-19); BLOOD UREA NITROGEN 12 mg/dL (7-20); CALCIUM 8.2 mg/dL (8.4-10.2); CARBON DIOXIDE 26 mmol/L (22-30); CHLORIDE 105 mmol/L (98-107); GLUCOSE 182 mg/dL (75-110); POTASSIUM 3.4 mmol/L (3.6-5.0); SODIUM 138.6 mmol/L (137-145)
[2018-09-02] MEDS: TRAMADOL HCL 50 MG TABLET PO PRN (20:08)
[2018-09-02] MEDS ORDERED: INSULIN GLARGINE,HUM.REC.ANLOG 300 UNIT/3 ML INSULN.PEN SUBCUT SCH (22:00)
[2018-09-02] MEDS: ATORVASTATIN CALCIUM 80 MG TABLET PO SCH (22:47)
[2018-09-02] MEDS: INSULIN GLARGINE,HUM.REC.ANLOG 1,000 UNIT/10 ML VIAL (PYX) SUBCUT SCH (22:48)
[2018-09-02] MEDS: METOPROLOL TARTRATE 25 MG TABLET PO SCH (22:48)
[2018-09-02] MEDS: PHARMACY COMMUNICATION ORDER MC SCH (22:51)
[2018-09-03] MEDS: TRAMADOL HCL 50 MG TABLET PO PRN ×4 (03:00→21:32)
[2018-09-03] MEDS: POTASSIUM CHLORIDE 20 MEQ/50 ML RTU IV SCH ×2 (03:02→04:51)
[2018-09-03 07:34] LABS: ABSOLUTE EOSINOPHILS # (AUTO) 0.2 10^3/uL (0.0-0.6); ABSOLUTE LYMPHOCYTES (AUTO) 2.1 10^3/uL (0.5-4.7); ABSOLUTE MONOCYTES (AUTO) 0.7 10^3/uL (0.1-1.4); ABSOLUTE NEUT (AUTO) 4.1 10^3/uL (1.7-8.2); BASOPHILS % (AUTO) 0.2 % (0-2); EOSINOPHILS % (AUTO) 2.5 % (0-6); HEMATOCRIT 27.1 % (37.9-51.0); HEMOGLOBIN 9.2 g/dL (13.5-17.0); LYMPHOCYTES % (AUTO) 29.5 % (13-45); MEAN CORPUSCULAR HEMOGLOBIN 27.7 pg (27.0-33.4); MEAN CORPUSCULAR VOLUME 82 fl (80-97); MONOCYTES % (AUTO) 10.1 % (3-13); PLATELET COUNT 311 10^3/uL (150-450); RED BLOOD COUNT 3.32 10^6/uL (4.35-5.55); RED CELL DISTRIBUTION WIDTH 15.5 % (11.5-14.0); SEGMENTED NEUTROPHILS % (AUTO) 57.7 % (42-78); TOTAL CELLS COUNTED % (AUTO) 100 %; WHITE BLOOD COUNT 7.1 10^3/uL (4.0-10.5)
[2018-09-03] MEDS: INSULIN LISPRO 100 UNIT/ML 3 ML VIAL SUBCUT SCH ×4 (07:39→21:36)
[2018-09-03 08:00] LABS: ANION GAP 11 (5-19); BLOOD UREA NITROGEN 10 mg/dL (7-20); CALCIUM 8.3 mg/dL (8.4-10.2); CARBON DIOXIDE 20 mmol/L (22-30); CHLORIDE 108 mmol/L (98-107); GLUCOSE 164 mg/dL (75-110); POTASSIUM 3.6 mmol/L (3.6-5.0); SODIUM 138.5 mmol/L (137-145)
--- NOTE | 2018-09-03 08:12 | PDOC PROGRESS REPORT ---
Subjective Progress Note for:: 09/03/18 Subjective:: no c/o, flatus and stools Reason For Visit: TRIMALLEOLAR FRACTURE OF LEFT ANKLE Physical Exam Vital Signs: Temp Pulse Resp BP Pulse Ox 98.9 F 86 18 146/80 H 96 09/03/18 00:00 09/03/18 00:00 09/03/18 00:00 09/03/18 00:00 09/03/18 00:00 Intake & Output 09/02/18 09/03/18 09/04/18 05:59 06:59 06:59 Intake Total Output Total Balance Weight General appearance: PRESENT: no acute distress GI/Abdominal exam: PRESENT: soft Results Laboratory Results: 09/03/18 07:08 09/02/18 09/02/18 09/02/18 06:07 06:07 19:17 WBC RBC Hgb Hct MCV MCH MCHC RDW Plt Count Seg Neutrophils % Lymphocytes % Monocytes % Eosinophils % Basophils % Absolute Neutrophils Absolute Lymphocytes Absolute Monocytes Absolute Eosinophils Absolute Basophils Sodium 141.9 138.6 Potassium 3.3 L 3.4 L Chloride 107 105 Carbon Dioxide 20 L 26 Anion Gap 15 8 BUN 14 12 Creatinine 0.98 0.88 Est GFR ( Amer) > 60 > 60 Est GFR (Non-Af Amer) > 60 > 60 Glucose 180 H 182 H Calcium 8.7 8.2 L Magnesium 2.0 09/03/18 07:08 WBC 7.1 RBC 3.32 L Hgb 9.2 L Hct 27.1 L MCV 82 MCH 27.7 MCHC 34.0 RDW 15.5 H Plt Count 311 Seg Neutrophils % 57.7 Lymphocytes % 29.5 Monocytes % 10.1 Eosinophils % 2.5 Basophils % 0.2 Absolute Neutrophils 4.1 Absolute Lymphocytes 2.1 Absolute Monocytes 0.7 Absolute Eosinophils 0.2 Absolute Basophils 0.0 Sodium Potassium Chloride Carbon Dioxide Anion Gap BUN Creatinine Est GFR ( Amer) Est GFR (Non-Af Amer) Glucose Calcium Magnesium Impressions: Ankle X-Ray 08/28/18 00:00 IMPRESSION: IMAGE(S) OBTAINED DURING PROCEDURE. Fluoroscopy 08/28/18 00:00 IMPRESSION: IMAGE(S) OBTAINED DURING PROCEDURE. KUB X-Ray 08/31/18 00:00 IMPRESSION: Nasogastric tube in the stomach. Abdomen X-Ray 09/01/18 07:00 IMPRESSION: Nasogastric tube decompresses the stomach. Persistent air-filled small bowel loops and colon loops in the mid abdomen. Decreased gaseous distention is decreased compared to 08/28/2018. There is now moderate stool in the descending colon. Acute Abdomen Series 09/02/18 00:00 IMPRESSION: NONSPECIFIC BOWEL GAS PATTERN WITHOUT EVIDENCE FOR OBSTRUCTION. Assessment & Plan - Diagnosis (1) Diabetes Qualifiers: Diabetes mellitus type: type 2 Diabetes mellitus complication status: without complication Is this a current diagnosis for this admission?: Yes (2) Hypertension Qualifiers: Hypertension type: essential hypertension Qualified Code(s): I10 - Essential (primary) hypertension Is this a current diagnosis for this admission?: Yes (3) Ileus Is this a current diagnosis for this admission?: Yes (4) Trimalleolar fracture of left ankle Qualifiers: Encounter type: initial encounter Fracture type: closed Qualified Code(s): S82.852A - Displaced trimalleolar fracture of left lower leg, initial encounter for closed fracture Is this a current diagnosis for this admission?: Yes (5) Acute pseudo-obstruction of intestine Is this a current diagnosis for this admission?: Yes - Plan Summary Plan Summary: A/ resolved symptoms of pseudoobstruction] flatus and stools abdomen soft P/ advance to low fat diet patient can be discharged to home at anytime by my viewpoint no need for appointment with Surgery office. I will sign off.
[2018-09-03] MEDS: METOPROLOL TARTRATE 25 MG TABLET PO SCH ×2 (09:13→21:35)
[2018-09-03] MEDS: AMLODIPINE BESYLATE 10 MG TABLET PO SCH ×2 (09:13→09:23)
[2018-09-03] MEDS: LANSOPRAZOLE 15 MG TAB.RAP.DR PO SCH ×2 (09:13→18:07)
[2018-09-03] MEDS: DOXAZOSIN MESYLATE 4 MG TABLET PO SCH (09:14)
[2018-09-03] MEDS: LIDOCAINE 5% (700 MG) TRANSDERMAL ADH..PATCH TP SCH (09:15)
[2018-09-03] MEDS: NORMAL SALINE 1000 ML 1,000 ML IV PRN ×2 (09:16→21:36)
[2018-09-03] MEDS ORDERED: SITAGLIPTIN PHOSPHATE 50 MG TABLET PO SCH (10:00)
[2018-09-03] MEDS ORDERED: (PENDING PHARMACY ID) (Terazosin Hcl [Terazosin Hcl] 10 MG) PO SCH (10:00)
[2018-09-03] MEDS ORDERED: METFORMIN HCL 500 MG TABLET PO SCH (10:00)
[2018-09-03] MEDS: METFORMIN HCL 500 MG TABLET PO SCH ×2 (12:08→18:06)
[2018-09-03] MEDS: SITAGLIPTIN PHOSPHATE 50 MG TABLET PO SCH ×2 (12:08→18:06)
[2018-09-03] MEDS ORDERED: HYDROCODONE/ACETAMINOPHEN 5-325 MG TABLET PO PRN (17:53)
[2018-09-03] MEDS: OXYCODONE HCL IR 5 MG TABLET PO PRN (21:34)
[2018-09-03] MEDS: ATORVASTATIN CALCIUM 80 MG TABLET PO SCH (21:34)
[2018-09-03] MEDS: INSULIN GLARGINE,HUM.REC.ANLOG 1,000 UNIT/10 ML VIAL (PYX) SUBCUT SCH (21:36)
[2018-09-03] MEDS: PHARMACY COMMUNICATION ORDER MC SCH (22:01)
[2018-09-04] MEDS: OXYCODONE HCL IR 5 MG TABLET PO PRN ×4 (03:36→22:59)
[2018-09-04] MEDS: TRAMADOL HCL 50 MG TABLET PO PRN ×3 (03:36→20:53)
--- NOTE | 2018-09-04 04:13 | PROGRESS NOTE E ---
Progress Note NAME: TJ PIERCE : 1955 AGE: 63Y DATE: 09/03/2018 ROOM: 435 SUBJECTIVE: Mr. Pierce is sitting on the side of the bed. He states that he is feeling better today. The patient tolerated regular food today. He denies any nausea, vomiting, diarrhea. No shortness of breath, dizziness, chest pain. No fevers, chills. The patient has been afebrile. Blood pressure has been in good range, and the patient does not voice any other concerns at this time. REVIEW OF SYSTEMS: The rest of review of systems is negative. MEDICATIONS: Medications have been reviewed. OBJECTIVE: GENERAL: The patient is a 63-year-old -[place] male who is awake, alert, and oriented to person, place, situation. He is verbal, conversational. He does not appear to be in any acute distress. VITAL SIGNS: Temperature is 98.4, pulse 75, respirations 20, blood pressure is 148/73, oxygen saturation is 100% on room air. SKIN: Warm and dry. No rash. He is not diaphoretic. HEENT: Pupils equal, round, and reactive to light and accommodation. Conjunctivae are pink. No evidence of JVP. CARDIOVASCULAR: Heart is regular. There is no murmur or rub. CHEST: Clear, symmetrical, unlabored. ABDOMEN: Soft, nontender. EXTREMITIES: No clubbing, cyanosis, edema. The patient's left lower extremity is wrapped in appropriate dressing. DIAGNOSTIC STUDIES: Hematology from 09/03/2018: WBC is 8.1, hemoglobin is 9.2, hematocrit is 27.7, platelet count 311,000. Chemistries on 09/03/2018: Sodium is 135, potassium 3.6, chloride is 108, carbon dioxide 20, BUN 10, creatinine 0.6. Glucose is 164. Calcium is 8.3. IMPRESSION AND PLAN: 1. DIABETES MELLITUS TYPE 2. The patient continues on sliding scale coverage. I have resumed his home medications now that he is taking p.o. 2. HYPERTENSION. Have resumed blood pressure medicines now that the patient is taking p.o. 3. ILEUS. Management as per Surgery. 4. HYPERLIPIDEMIA. Continue statin. 5. TRIMALLEOLAR FRACTURE OF THE LEFT EXTREMITY. Management per Orthopedics. DISPOSITION: The patient is a FULL CODE. Depending on the patient's symptomatology and diagnostic findings, will reevaluate in the a.m. Time spent on this follow up, including assessment and plan, physical examination, patient education, and review of records is 15 minutes. DICTATING PHYSICIAN: MAYNOR OLMOS NP [id number] PHY#: [id number] ID: [id number] JOB#: [id number] ACCT: [id number] cc: >
[2018-09-04 09:38] LABS: ABSOLUTE EOSINOPHILS # (AUTO) 0.2 10^3/uL (0.0-0.6); ABSOLUTE LYMPHOCYTES (AUTO) 2.3 10^3/uL (0.5-4.7); ABSOLUTE MONOCYTES (AUTO) 0.8 10^3/uL (0.1-1.4); BASOPHILS % (AUTO) 0.2 % (0-2); EOSINOPHILS % (AUTO) 2.9 % (0-6); HEMATOCRIT 26.2 % (37.9-51.0); HEMOGLOBIN 8.8 g/dL (13.5-17.0); MEAN CORPUSCULAR HEMOGLOBIN 27.8 pg (27.0-33.4); MEAN CORPUSCULAR HGB CONC 33.6 g/dL (32.0-36.0); MEAN CORPUSCULAR VOLUME 83 fl (80-97); MONOCYTES % (AUTO) 10.5 % (3-13); PLATELET COUNT 320 10^3/uL (150-450); RED BLOOD COUNT 3.17 10^6/uL (4.35-5.55); RED CELL DISTRIBUTION WIDTH 15.3 % (11.5-14.0); SEGMENTED NEUTROPHILS % (AUTO) 55.4 % (42-78); TOTAL CELLS COUNTED % (AUTO) 100 %; WHITE BLOOD COUNT 7.3 10^3/uL (4.0-10.5)
[2018-09-04] MEDS: LIDOCAINE 5% (700 MG) TRANSDERMAL ADH..PATCH TP SCH (09:59)
[2018-09-04] MEDS: METOPROLOL TARTRATE 25 MG TABLET PO SCH ×2 (09:59→23:14)
[2018-09-04] MEDS: AMLODIPINE BESYLATE 10 MG TABLET PO SCH ×2 (09:59→10:05)
[2018-09-04] MEDS: METFORMIN HCL 500 MG TABLET PO SCH ×2 (10:00→18:37)
[2018-09-04] MEDS: DOXAZOSIN MESYLATE 4 MG TABLET PO SCH ×2 (10:00→11:59)
[2018-09-04] MEDS: SITAGLIPTIN PHOSPHATE 50 MG TABLET PO SCH ×2 (10:00→18:37)
[2018-09-04] MEDS: LANSOPRAZOLE 15 MG TAB.RAP.DR PO SCH ×2 (10:00→18:38)
[2018-09-04 10:01] LABS: ANION GAP 9 (5-19); BLOOD UREA NITROGEN 10 mg/dL (7-20); CALCIUM 8.1 mg/dL (8.4-10.2); CARBON DIOXIDE 22 mmol/L (22-30); CHLORIDE 107 mmol/L (98-107); GLUCOSE 136 mg/dL (75-110); POTASSIUM 3.8 mmol/L (3.6-5.0); SODIUM 138.3 mmol/L (137-145)
[2018-09-04] MEDS: INSULIN LISPRO 100 UNIT/ML 3 ML VIAL SUBCUT SCH ×4 (10:04→23:01)
[2018-09-04] MEDS: NORMAL SALINE 1000 ML 1,000 ML IV PRN (11:09)
--- NOTE | 2018-09-04 16:46 | PDOC PROGRESS REPORT ---
Subjective Progress Note for:: 09/04/18 Subjective:: I seen patient sitting on chair. Awake alert oriented. He is not in pain or any form of distress. No new complaint. Reason For Visit: TRIMALLEOLAR FRACTURE OF LEFT ANKLE Physical Exam Vital Signs: Temp Pulse Resp BP Pulse Ox 97.5 F 91 20 173/93 H 99 09/04/18 16:00 09/04/18 16:00 09/04/18 16:00 09/04/18 16:00 09/04/18 16:00 Intake & Output 09/03/18 09/04/18 09/05/18 06:59 06:59 06:59 Intake Total 3375 1915 Output Total 1000 965 Balance 2375 950 Weight 131.7 kg 131.7 kg General appearance: PRESENT: no acute distress, well-developed, well-nourished Head exam: PRESENT: atraumatic, normocephalic Eye exam: PRESENT: conjunctiva pink, EOMI, PERRLA. ABSENT: scleral icterus Ear exam: PRESENT: normal external ear exam Mouth exam: PRESENT: moist, tongue midline Neck exam: ABSENT: carotid bruit, JVD, lymphadenopathy, thyromegaly Respiratory exam: PRESENT: clear to auscultation frantz. ABSENT: rales, rhonchi, wheezes Cardiovascular exam: PRESENT: RRR. ABSENT: diastolic murmur, rubs, systolic murmur Pulses: PRESENT: normal dorsalis pedis pul Vascular exam: PRESENT: normal capillary refill GI/Abdominal exam: PRESENT: normal bowel sounds, soft. ABSENT: distended, guarding, mass, organolmegaly, rebound, tenderness Rectal exam: PRESENT: deferred Extremities exam: PRESENT: full ROM. ABSENT: calf tenderness, clubbing, pedal edema Musculoskeletal exam: PRESENT: other - Left leg and foot is splinted with a cast. Neurological exam: PRESENT: alert, awake, oriented to person, oriented to place, oriented to time, oriented to situation, CN II-XII grossly intact. ABSENT: motor sensory deficit Psychiatric exam: PRESENT: appropriate affect, normal mood. ABSENT: homicidal ideation, suicidal ideation Skin exam: PRESENT: dry, intact, warm. ABSENT: cyanosis, rash Results Laboratory Results: 09/04/18 08:33 09/04/18 08:33 03/11/19 03/11/19 08:33 08:33 WBC 7.3 RBC 3.17 L Hgb 8.8 L Hct 26.2 L MCV 83 MCH 27.8 MCHC 33.6 RDW 15.3 H Plt Count 320 Seg Neutrophils % 55.4 Lymphocytes % 31.0 Monocytes % 10.5 Eosinophils % 2.9 Basophils % 0.2 Absolute Neutrophils 4.0 Absolute Lymphocytes 2.3 Absolute Monocytes 0.8 Absolute Eosinophils 0.2 Absolute Basophils 0.0 Sodium 138.3 Potassium 3.8 Chloride 107 Carbon Dioxide 22 Anion Gap 9 BUN 10 Creatinine 0.93 Est GFR ( Amer) > 60 Est GFR (Non-Af Amer) > 60 Glucose 136 H Calcium 8.1 L Impressions: Ankle X-Ray 08/28/18 00:00 IMPRESSION: IMAGE(S) OBTAINED DURING PROCEDURE. Fluoroscopy 08/28/18 00:00 IMPRESSION: IMAGE(S) OBTAINED DURING PROCEDURE. KUB X-Ray 08/31/18 00:00 IMPRESSION: Nasogastric tube in the stomach. Abdomen X-Ray 09/01/18 07:00 IMPRESSION: Nasogastric tube decompresses the stomach. Persistent air-filled small bowel loops and colon loops in the mid abdomen. Decreased gaseous distention is decreased compared to 08/28/2018. There is now moderate stool in the descending colon. Acute Abdomen Series 09/02/18 00:00 IMPRESSION: NONSPECIFIC BOWEL GAS PATTERN WITHOUT EVIDENCE FOR OBSTRUCTION. Assessment & Plan - Diagnosis (1) Hypertension Qualifiers: Hypertension type: essential hypertension Qualified Code(s): I10 - Essential (primary) hypertension Is this a current diagnosis for this admission?: Yes Plan: Stable (2) Hyperlipidemia Qualifiers: Hyperlipidemia type: unspecified Qualified Code(s): E78.5 - Hyperlipidemia, unspecified Is this a current diagnosis for this admission?: Yes Plan: Continue current regimen (3) BPH (benign prostatic hyperplasia) Is this a current diagnosis for this admission?: Yes Plan: Continue Flomax (4) Diabetes Qualifiers: Diabetes mellitus type: type 2 Is this a current diagnosis for this admission?: Yes Plan: Controlled to continue current medication. (5) Anemia Is this a current diagnosis for this admission?: Yes Plan: Normocytic normochromic. Etiology is unclear. Anemia workup.
--- NOTE | 2018-09-04 21:56 | RADIOLOGY REPORT (SQ) ---
3 VIEWS OF THE LUMBAR SPINE HISTORY: Lower back pain. COMPARISON: None. FINDINGS: No acute compression fracture is seen. There is normal alignment without subluxation. Mild degenerative disc disease at L5-S1. The SI joints are intact. IMPRESSION: No acute compression fracture of the lumbar spine.
[2018-09-04] MEDS: ATORVASTATIN CALCIUM 80 MG TABLET PO SCH (22:59)
[2018-09-04] MEDS: GABAPENTIN 300 MG CAPSULE PO SCH (22:59)
[2018-09-04] MEDS: INSULIN GLARGINE,HUM.REC.ANLOG 1,000 UNIT/10 ML VIAL (PYX) SUBCUT SCH (23:00)
[2018-09-04] MEDS: PHARMACY COMMUNICATION ORDER MC SCH (23:15)
[2018-09-05] MEDS: GABAPENTIN 300 MG CAPSULE PO SCH (05:53)
[2018-09-05] MEDS: TRAMADOL HCL 50 MG TABLET PO PRN (05:54)
[2018-09-05 06:26] LABS: ANION GAP 8 (5-19); BLOOD UREA NITROGEN 8 mg/dL (7-20); CALCIUM 8.8 mg/dL (8.4-10.2); CARBON DIOXIDE 23 mmol/L (22-30); CHLORIDE 109 mmol/L (98-107); GLUCOSE 111 mg/dL (75-110); POTASSIUM 3.7 mmol/L (3.6-5.0)
--- NOTE | 2018-09-05 07:11 | PDOC DISCHARGE SUMMARY ---
General - Admit/Disc Date/PCP Admission Date/Primary Care Provider: 08/27/18 03:42 [facility] Discharge Date: 09/05/18 - Discharge Diagnosis (1) Diabetes Is this a current diagnosis for this admission?: Yes (2) Hypertension Is this a current diagnosis for this admission?: Yes (3) Trimalleolar fracture of left ankle Is this a current diagnosis for this admission?: Yes (4) Ileus Is this a current diagnosis for this admission?: Yes - Additional Information Resuscitation Status: Full Code Home Medications: Amlodipine Besylate [Norvasc 10 mg Tablet] 10 mg PO DAILY 08/27/18 Atorvastatin Calcium [Lipitor] 80 mg PO QHS 08/27/18 Gabapentin Enacarbil [Horizant] 600 mg PO DAILY 08/27/18 Insulin Glargine,Hum.rec.anlog [Lantus Insulin 100 Unit/mL] 50 units SUBCUT QHS 08/27/18 Metoprolol Tartrate [Lopressor 25 mg Tablet] 25 mg PO BID 08/27/18 Omeprazole 20 mg PO BID 08/27/18 Oxycodone HCl [Oxy-Ir 5 mg Tablet] 30 mg PO Q4H PRN 08/27/18 Sitagliptin Phos/Metformin HCl [Janumet Xr 50-1,000 mg Tablet] 50 - 1,000 mg PO BID 08/27/18 Telmisartan/Hydrochlorothiazid [Telmisartan-Hctz 80-25 mg Tab] 1 tab PO DAILY 08/27/18 Terazosin HCl 10 mg PO DAILY 08/27/18 History of Present Illness History of Present Illness: Patient is a 63-year-old black male who presented to emergency room with a left ankle fracture dislocation. He is admitted to the orthopedic service for f racture management. Hospital Course Hospital Course: The patient is taken to the operating room and undergoes an uncomplicated ORIF of a left ankle fracture. Postop please returned to floor and seen by physical therapy for mobilization with a touchdown weightbearing restriction. Patient developed a postoperative ileus is seen by both the hospital service as well as the surgical service for evaluation of this. He undergoes NG decompression and subsequently reestablishes normal bowel function. Progress with physical therapy is relatively slow. Pain management is also an issue. Physical Exam Vital Signs: Temp Pulse Resp BP Pulse Ox 37.0 C 84 20 144/69 H 99 09/05/18 00:00 09/05/18 00:00 09/05/18 00:00 09/05/18 00:00 09/05/18 00:00 Intake & Output 09/04/18 09/05/18 09/06/18 06:59 06:59 06:59 Intake Total 3375 2915 Output Total 1000 965 Balance 2375 1950 Weight 131.7 kg 131.8 kg Physical Exam: Obese middle-aged black male lying in hospital bed who is alert and appropriate General appearance: PRESENT: no acute distress, mild distress, obese Head exam: PRESENT: normocephalic Respiratory exam: PRESENT: unlabored Cardiovascular exam: PRESENT: RRR Vascular exam: PRESENT: normal capillary refill Rectal exam: PRESENT: deferred Extremities exam: PRESENT: other - Left lower extremities dressing is clean dry and intact. Brisk capillary refill to each of the digits. Sensory examination is intact to light touch. There is great toe flexion extension. Neurological exam: PRESENT: alert, awake, oriented to person, oriented to place, oriented to time, oriented to situation. ABSENT: motor sensory deficit Psychiatric exam: PRESENT: appropriate affect, normal mood. ABSENT: homicidal ideation, suicidal ideation Skin exam: PRESENT: dry, intact, warm. ABSENT: cyanosis, rash Results Laboratory Results: 09/05/18 05:45 09/04/18 09/04/18 09/05/18 08:33 08:33 05:45 WBC 7.3 RBC 3.17 L Hgb 8.8 L Hct 26.2 L MCV 83 MCH 27.8 MCHC 33.6 RDW 15.3 H Plt Count 320 Seg Neutrophils % 55.4 Lymphocytes % 31.0 Monocytes % 10.5 Eosinophils % 2.9 Basophils % 0.2 Absolute Neutrophils 4.0 Absolute Lymphocytes 2.3 Absolute Monocytes 0.8 Absolute Eosinophils 0.2 Absolute Basophils 0.0 Sodium 138.3 140.0 Potassium 3.8 3.7 Chloride 107 109 H Carbon Dioxide 22 23 Anion Gap 9 8 BUN 10 8 Creatinine 0.93 0.92 Est GFR ( Amer) > 60 > 60 Est GFR (Non-Af Amer) > 60 > 60 Glucose 136 H 111 H Calcium 8.1 L 8.8 Impressions: Ankle X-Ray 08/28/18 00:00 IMPRESSION: IMAGE(S) OBTAINED DURING PROCEDURE. Fluoroscopy 08/28/18 00:00 IMPRESSION: IMAGE(S) OBTAINED DURING PROCEDURE. KUB X-Ray 08/31/18 00:00 IMPRESSION: Nasogastric tube in the stomach. Abdomen X-Ray 09/01/18 07:00 IMPRESSION: Nasogastric tube decompresses the stomach. Persistent air-filled small bowel loops and colon loops in the mid abdomen. Decreased gaseous distention is decreased compared to 08/28/2018. There is now moderate stool in the descending colon. Acute Abdomen Series 09/02/18 00:00 IMPRESSION: NONSPECIFIC BOWEL GAS PATTERN WITHOUT EVIDENCE FOR OBSTRUCTION. Lumbar Spine X-Ray 09/04/18 00:00 IMPRESSION: No acute compression fracture of the lumbar spine. Status: Imported from PACS Qualifiers - * PATIENT BEING DISCHARGED WITH ANY OF THE FOLLOWING DIAGNOSIS: No VTE patient discharged on overlapping Therapy?: Yes Plan Discharge Plan: Patient be discharged home with home health services and DME. Follow-up with Dr. Matthews and [facility] for surgery in 1 week for posterior splint removal and application of a Cam walker. Patient on a touchdown weightbearing restriction Time Spent: Less than 30 Minutes
[2018-09-05 08:00] LABS: HEMATOCRIT 27.7 % (37.9-51.0); HEMOGLOBIN 9.1 g/dL (13.5-17.0); MEAN CORPUSCULAR HEMOGLOBIN 26.9 pg (27.0-33.4); MEAN CORPUSCULAR VOLUME 82 fl (80-97); RED CELL DISTRIBUTION WIDTH 15.2 % (11.5-14.0); WHITE BLOOD COUNT 8.4 10^3/uL (4.0-10.5)
[2018-09-05 08:01] LABS: PLATELET COUNT 312 10^3/uL (150-450)
[2018-09-05 08:02] LABS: ABSOLUTE LYMPHOCYTES# (MANUAL) 2.9 10^3/uL (0.5-4.7); ABSOLUTE MONOCYTES # (MANUAL) 0.4 10^3/uL (0.1-1.4); BASOPHILS % (MANUAL) 0 % (0-2); EOSINOPHILS % (MANUAL) 1 % (0-6); LYMPHOCYTES % (MANUAL) 35 % (13-45); MONOCYTES % (MANUAL) 5 % (3-13); SEGMENTED NEUTROPHILS % (MAN) 59 % (42-78); TOTAL CELLS COUNTED 100
[2018-09-05 08:03] LABS: ANISOCYTOSIS SLIGHT; BURR CELLS 1+; OVALOCYTES 1+; PLATELET CLUMPS PRESENT; POIKILOCYTOSIS 1+; TEAR DROP CELLS SLIGHT
--- NOTE | 2018-09-05 08:22 | Progress Note ---
Provider Note Provider Note: acute issue of ileus has resolved, denies pain, had BM, passing flatus does have anemia outpatient work up no inpatient GI work up si required at this time he can be discharged
[2018-09-05] MEDS: INSULIN LISPRO 100 UNIT/ML 3 ML VIAL SUBCUT SCH (08:24)
[2018-09-05] MEDS: OXYCODONE HCL IR 5 MG TABLET PO PRN (08:29)
[2018-09-05] MEDS: LANSOPRAZOLE 15 MG TAB.RAP.DR PO SCH (09:47)
[2018-09-05] MEDS: AMLODIPINE BESYLATE 10 MG TABLET PO SCH (09:47)
[2018-09-05] MEDS: METFORMIN HCL 500 MG TABLET PO SCH (09:47)
[2018-09-05] MEDS: METOPROLOL TARTRATE 25 MG TABLET PO SCH (09:47)
[2018-09-05] MEDS ORDERED: DOCUSATE SODIUM 100 MG CAPSULE PO SCH (10:00)
[2018-09-05] MEDS ORDERED: SENNOSIDES/DOCUSATE 8.6-50 MG 1 EACH TABLET PO SCH (10:00)
[2018-09-05] MEDS: SITAGLIPTIN PHOSPHATE 50 MG TABLET PO SCH (10:10)
[2018-09-05] MEDS: DOXAZOSIN MESYLATE 4 MG TABLET PO SCH (10:10)
[2018-09-05] MEDS: LIDOCAINE 5% (700 MG) TRANSDERMAL ADH..PATCH TP SCH (10:12)
[2018-09-05 10:40] VITALS: BP 148/73
== END 2018-09-05 12:10 | disposition home or self-care (01) | DRG 493 ==
LOC: ER 01:02 → EH 03:42 → UNDOADMIN 03:42 → ER 05:41 → EH 05:41 → 4S 05:41 → ER 06:42 → 4S 09-05 12:10 → UNDODISIN 09-05 12:10 → ER 09-05 12:10
PROVIDERS: ADMIT Orthopaedic Surgery; ATTEND Orthopaedic Surgery
PROC: 0QSK04Z Reposition Left Fibula with Internal Fixation Device, Open Approach (ICD-10-PCS; 2018-08-28)
PROC: 0QSH04Z Reposition Left Tibia with Internal Fixation Device, Open Approach (ICD-10-PCS; principal; 2018-08-28 12:30)
PROC: 0D9670Z Drainage of Stomach with Drainage Device, Via Natural or Artificial Opening (ICD-10-PCS; 2018-08-29)
PROC: 0D9670Z Drainage of Stomach with Drainage Device, Via Natural or Artificial Opening (ICD-10-PCS; 2018-08-30)
DX: S82.852A Displaced trimalleolar fracture of left lower leg, initial encounter for closed fracture (principal); K91.31 Postprocedural partial intestinal obstruction; W01.0XXA Fall on same level from slipping, tripping and stumbling without subsequent striking against object, initial encounter; Y92.008 Other place in unspecified non-institutional (private) residence as the place of occurrence of the external cause; D64.9 Anemia, unspecified; M54.16 Radiculopathy, lumbar region; G89.29 Other chronic pain; E11.9 Type 2 diabetes mellitus without complications; E66.9 Obesity, unspecified; N40.0 Benign prostatic hyperplasia without lower urinary tract symptoms; I10 Essential (primary) hypertension; E78.5 Hyperlipidemia, unspecified; Z88.6 Allergy status to analgesic agent; Z68.37 Body mass index [BMI] 37.0-37.9, adult; Z79.4 Long term (current) use of insulin; Z79.899 Other long term (current) drug therapy; Z79.84 Long term (current) use of oral hypoglycemic drugs; Z91.013 Allergy to seafood; Z79.891 Long term (current) use of opiate analgesic
CPT/HCPCS: 01480; 36415; 72100; 74018; 74019; 74022; 80048; 80053; 82962; 83036; 83735; 85025; 85027; 85610; 85730; 93005; 93010; 99284; C1713; C1769; J0131; J0360; J0690; J1170; J1815; J2060; J2250; J2270; J2405; J2704; J3010; J3360; J3480; J3490; J7030; J7120; S0119

== ENCOUNTER 2019-05-24 08:40 | Day surgery (SDC) | payer MEDICARE, OTHER ==
[2019-05-24] MEDS ORDERED: ONDANSETRON HCL INJ/PF 4 MG/2 ML SDV IM ONE ×2 (09:47)
--- NOTE | 2019-05-24 09:51 | ER Document Report ---
ED Medical Screen (RME) - General Chief Complaint: Vomiting Stated Complaint: VOMITING Time Seen by Provider: 05/24/19 09:46 Mode of Arrival: Ambulatory Information source: Patient Notes: 64-year-old male presented to ED for complaint of abdominal pain since 10:00 last night. He states he has been having nausea and vomiting but now is mostly the pain and vomiting. He states that he did have a bowel movement about 8:00 this morning. He states anytime he puts anything in his mouth he throws it right back up. He is alert oriented respirations regular nonlabored. He does have tenderness to the right lower quadrant at this time. Abdomen is soft with active bowel sounds. He states he has gallstones that have not been removed and he also has acid reflux. I have greeted and performed a rapid initial assessment of this patient. A comprehensive ED assessment and evaluation of the patient, analysis of test results and completion of medical decision making process will be conducted by an additional ED providers. TRAVEL OUTSIDE OF THE [place] IN LAST 30 DAYS: No - Related Data Allergies/Adverse Reactions: aspirin Allergy (Verified 05/24/19 08:55) shellfish derived Allergy (Verified 05/24/19 08:55) acetaminophen [From Tylenol] Adverse Reaction (Severe, Verified 05/24/19 08:55) Pruritis Home Medications: [facility] Past Medical History - Social History Chew tobacco use (# tins/day): No Frequency of alcohol use: None Drug Abuse: None - Past Medical History Cardiac Medical History: Reports: Hx Hypercholesterolemia, Hx Hypertension Endocrine Medical History: Reports: Hx Diabetes Mellitus Type 2 Renal/ Medical History: Reports: Hx Benign Prostatic Hyperplasia. Denies: Hx Peritoneal Dialysis Psychiatric Medical History: Denies: Hx Depression Past Surgical History: Reports: Hx Orthopedic Surgery, Other Physical Exam - Vital signs Vitals: Temp Pulse Resp BP Pulse Ox 97.5 F 83 20 149/67 H 99 05/24/19 08:42 05/24/19 08:42 05/24/19 08:42 05/24/19 08:42 05/24/19 08:42 Course - Vital Signs Vital signs: Temp Pulse Resp BP Pulse Ox 97.5 F 83 20 149/67 H 99 05/24/19 08:42 05/24/19 08:42 05/24/19 08:42 05/24/19 08:42 05/24/19 08:42 - Laboratory Laboratory results interpreted by me: 05/24/19 09:00 POC Glucose 203 H
[2019-05-24] MEDS ORDERED: NORMAL SALINE 1000 ML 1,000 ML IV ONE (09:52)
[2019-05-24] MEDS ORDERED: MORPHINE SULFATE 10 MG/ML INJ IM ONE (10:01)
[2019-05-24 10:30] LABS: APPEARANCE,URINE CLEAR; BILIRUBIN,URINE NEGATIVE (NEGATIVE); COLOR,URINE YELLOW; GLUCOSE, URINE NEGATIVE (NEGATIVE); KETONES,URINE NEGATIVE (NEGATIVE); LEUKOCYTE ESTERASE,URINE NEGATIVE (NEGATIVE); NITRITE,URINE NEGATIVE (NEGATIVE); PROTEIN,URINE 100 mg/dL (NEGATIVE); URINE SPECIFIC GRAVITY 1.015
[2019-05-24 10:36] LABS: ABSOLUTE BASOPHILS # (AUTO) 0.1 10^3/uL (0.0-0.2); ABSOLUTE LYMPHOCYTES (AUTO) 1.5 10^3/uL (0.5-4.7); ABSOLUTE NEUT (AUTO) 10.4 10^3/uL (1.7-8.2); BASOPHILS % (AUTO) 0.5 % (0-2); EOSINOPHILS % (AUTO) 0.2 % (0-6); HEMATOCRIT 31.1 % (37.9-51.0); HEMOGLOBIN 10.3 g/dL (13.5-17.0); LYMPHOCYTES % (AUTO) 11.9 % (13-45); MEAN CORPUSCULAR HEMOGLOBIN 27.2 pg (27.0-33.4); MEAN CORPUSCULAR VOLUME 83 fl (80-97); MONOCYTES % (AUTO) 7.4 % (3-13); RED BLOOD COUNT 3.77 10^6/uL (4.35-5.55); RED CELL DISTRIBUTION WIDTH 16.3 % (11.5-14.0); TOTAL CELLS COUNTED % (AUTO) 100 %
[2019-05-24] MEDS ORDERED: HYDROMORPHONE HCL INJ/PF 2 MG/ML AMPULE IV ONE ×3 (10:55→15:01)
[2019-05-24 10:59] LABS: PLATELET COUNT 188 10^3/uL (150-450)
[2019-05-24 11:04] LABS: ALBUMIN 4.1 g/dL (3.5-5.0); ALKALINE PHOSPHATASE 69 U/L (38-126); ANION GAP 12 (5-19); ASPARTATE AMINO TRANSFERASE 42 U/L (17-59); BILIRUBIN,DIRECT 0.2 mg/dL (0.0-0.4); BILIRUBIN,TOTAL 0.8 mg/dL (0.2-1.3); BLOOD UREA NITROGEN 18 mg/dL (7-20); CALCIUM 9.4 mg/dL (8.4-10.2); CARBON DIOXIDE 24 mmol/L (22-30); CHLORIDE 103 mmol/L (98-107); GLUCOSE 208 mg/dL (75-110); POTASSIUM 4.1 mmol/L (3.6-5.0); TOTAL PROTEIN 7.5 g/dL (6.3-8.2)
--- NOTE | 2019-05-24 12:44 | RADIOLOGY REPORT (SQ) ---
EXAM DESCRIPTION: CT ABD/PELVIS WITH IV ONLY COMPLETED DATE/TIME: 05/24/2019 12:18 pm REASON FOR STUDY: Abdominal pain COMPARISON: None. TECHNIQUE: CT scan of the abdomen and pelvis performed using helical scanning technique with dynamic intravenous contrast injection. No oral contrast. Images reviewed with lung, soft tissue, and bone windows. Reconstructed coronal and sagittal MPR images reviewed. Delayed images for evaluation of the urinary system also acquired. All images stored on PACS. All CT scanners at this facility use dose modulation, iterative reconstruction, and/or weight based d osing when appropriate to reduce radiation dose to as low as reasonably achievable (ALARA). [facility]: Dose Right [facility]: CareDose [facility]: Dose Right [facility]: Teradose 4D [facility]: GetMaid CONTRAST TYPE AND DOSE: contrast/concentration: Isovue 350.00 mg/ml; Total Contrast Delivered: 100.0 ml; Total Saline Delivered: 37.9 ml RENAL FUNCTION: BUN 18 creatinine 1.07 RADIATION DOSE: CT Rad equipment meets quality standard of care and radiation dose reduction techniq ues were employed. CTDIvol: 20.8 - 21.1 mGy. DLP: 2496 mGy-cm.. LIMITATIONS: None. FINDINGS: LOWER CHEST: No significant findings. No nodules or infiltrates. LIVER: There is a 42 mm heterogeneous lesion in the right lobe of the liver. This is fairly well-cir cumscribed. SPLEEN: Normal size. No focal lesions. PANCREAS: No masses. No significant calcifications. No adjacent inflammation or peripancreatic fluid collections. Pancreatic duct not dilated. GALLBLADDER: Some small gallstones are present. ADRENAL GLANDS: No significant masses or asymmetry. RIGHT KIDNEY AND URETER: No solid masses. No significant calcifications. No hydronephrosis or hyd roureter. LEFT KIDNEY AND URETER: No solid masses. No significant calcifications. No hydronephrosis or hydr oureter. AORTA AND VESSELS: No aneurysm. No dissection. Renal arteries, SMA, celiac without stenosis. RETROPERITONEUM: No retroperitoneal adenopathy, hemorrhage or masses. BOWEL AND PERITONEAL CAVITY: No masses or inflammatory changes. No free fluid or peritoneal masses. APPENDIX: Normal. PELVIS: Urinary bladder is normal. There are 2 reservoirs for penile implant. The 1 on the left is collapsed. ABDOMINAL WALL: No masses. No hernias. BONES: No significant or acute findings. OTHER: No other significant finding. IMPRESSION: 1. Well-circumscribed heterogeneous lesion in the right lobe of the liver that demonstr ates poor enhancement. There are areas of fat within this. This is suggestive of an adenoma. 2. Cholelithiasis. TECHNICAL DOCUMENTATION: JOB ID: [id number] Quality ID # [id number]: Final reports with documentation of one or more dose reduction techniques (e.g., Au tomated exposure control, adjustment of the mA and/or kV according to patient size, use of iterative reconstruction technique) 2010 [employer]- All Rights Reserved Reading location - IP/workstation name: [email or web address]
--- NOTE | 2019-05-24 15:05 | RADIOLOGY REPORT (SQ) ---
EXAM DESCRIPTION: U/S ABDOMEN LIMITED W/O DOP COMPLETED DATE/TIME: 05/24/2019 2:33 pm REASON FOR STUDY: Right upper quadrant pain COMPARISON: CT abdomen pelvis 05/24/2019 TECHNIQUE: Dynamic and static grayscale images acquired of the abdomen and recorded on PACS. Beckyo simon selected color Doppler and spectral images recorded. LIMITATIONS: Body habitus, patient cooperation, bowel gas FINDINGS: PANCREAS: Midline pancreas grossly unremarkable LIVER: Liver is difficult to penetrate with the ultrasound beam from fatty infiltration. Mass in the subdiaphragmatic right lobe liver seen on CT 05/24/2019 is not characterized by ultrasound. LIVER VASCULATURE: Normal directional flow of the main portal vein and hepatic veins. GALLBLADDER: Multiple stones in the gallbladder. Borderline gallbladder wall thickening. No pericho lecystic fluid. ULTRASOUND-DETECTED STONER'S SIGN: Negative. INTRAHEPATIC DUCTS AND COMMON DUCT: No gross intrahepatic biliary ductal dilatation. Common bile alon t difficult to visualize at the diane hepatis and not well seen at the pancreatic head. INFERIOR VENA CAVA: Not well seen AORTA: Not well seen RIGHT KIDNEY: No gross hydronephrosis PERITONEAL AND RIGHT PLEURAL SPACE: No ascites or effusions. OTHER: No other significant findings. IMPRESSION: Stones in the gallbladder, borderline gallbladder wall thickening. No gross pericholecy stic fluid. Negative sonographic Stoner's sign. Fatty liver. The mass in the subdiaphragmatic right lobe liver seen on CT 05/24/2019 is not characte rized with ultrasound TECHNICAL DOCUMENTATION: JOB ID: [id number] [employer]- All Rights Reserved Reading location - IP/workstation name: [id number]
[2019-05-24] MEDS ORDERED: AMPICILLIN SOD/SULBACTAM 3 GM VIAL IV ONE (15:41)
--- NOTE | 2019-05-24 15:49 | ER Document Report ---
ED General - General Chief Complaint: Vomiting Stated Complaint: VOMITING Time Seen by Provider: 05/24/19 09:46 Mode of Arrival: Ambulatory TRAVEL OUTSIDE OF THE [place] IN LAST 30 DAYS: No - Related Data Allergies/Adverse Reactions: aspirin Allergy (Verified 05/24/19 08:55) shellfish derived Allergy (Verified 05/24/19 08:55) acetaminophen [From Tylenol] Adverse Reaction (Severe, Verified 05/24/19 08:55) Pruritis Home [facility]ations: [facility] Past Medical History - General Information source: Patient - Social History Smoking Status: Never Smoker Chew tobacco use (# tins/day): No Frequency of alcohol use: None Drug Abuse: None Family History: DM, Hypertension Patient has suicidal ideation: No Patient has homicidal ideation: No - Past Medical History Cardiac Medical History: Reports: Hx Hypercholesterolemia, Hx Hypertension Endocrine Medical History: Reports: Hx Diabetes Mellitus Type 2 Renal/ Medical History: Reports: Hx Benign Prostatic Hyperplasia. Denies: Hx Peritoneal Dialysis Psychiatric Medical History: Denies: Hx Depression Past Surgical History: Reports: Hx Orthopedic Surgery, Other Physical Exam - Vital signs Vitals: Temp Pulse Resp BP Pulse Ox 97.5 F 83 20 149/67 H 99 05/24/19 08:42 05/24/19 08:42 05/24/19 08:42 05/24/19 08:42 05/24/19 08:42 - Notes Notes: Patient presents [facility] complaining of generalized abdominal pain that started about 10:00 last night. Nausea with this but no vomiting no fever or diarrhea has pain or shortness of breath. Medical history significant for diabetes and hypertension. He reports corey with his gallbladder 10 years ago but none since then. Also has chronic lower back pain social history he does not smoke or drink at all. Patient is no longer on oxycodone is been off of that since August Review of systems pertinent positives and negatives in HPI otherwise all the systems were reviewed and acutely negative PHYSICIAN EXAM -vital signs are noted triage note and note from triage reviewed GENERAL: Well-appearing, well-nourished and in __mild disstress____ HEAD: Atraumatic, normocephalic. EYES: Pupils equal round and reactive to light, extraocular movements intact, sclera anicteric, conjunctiva are normal. ENT: nares patent, oropharynx clear without exudates. Slightly dry mucous membranes. NECK: supple without lymphadenopathy LUNGS: Breath sounds clear to auscultation bilaterally and equal. No wheezes r ales or rhonchi. HEART: Regular rate and rhythm without murmurs ABDOMEN: Soft, slightly distended his pain on the right side of the abdomen and epigastric with an equivocal Stoner's EXTREMITIES: No deformity, no edema. NEUROLOGICAL: No focal neurological deficits. Moves all extremities spo ntaneously and on command. PSYCH: Normal mood, normal affect. SKIN: Warm, Dry, normal turgor, no rashes or lesions noted. BACK-nontender in the midline Course - Re-evaluation Re-evalutation: 05/24/19 15:47 ED patient is remained stable was given IV fluids and several doses of pain medicine. Family complained that the medicines were not helping him they were advised that he is received several doses of Dilaudid later they told the nurse that the patient is on oxycodone to verify with this patient and he says that he has not had any oxycodone since August. Medical decision making patient presents with abdominal pain elevated white count and evidence of stones and gallbladder thickening clinically has cholecystitis. Case with general surgeon who will see the patient - Vital Signs Vital signs: Temp Pulse Resp BP Pulse Ox 98.0 F 86 16 149/70 H 96 05/24/19 14:04 05/24/19 14:04 05/24/19 14:04 05/24/19 14:04 05/24/19 14:04 - Laboratory Result Diagrams: 05/24/19 10:15 05/24/19 10:15 Laboratory results interpreted by me: 05/24/19 05/24/19 05/24/19 09:00 10:00 10:15 WBC 13.0 H RBC 3.77 L Hgb 10.3 L Hct 31.1 L RDW 16.3 H Lymph % (Auto) 11.9 L Absolute Neuts (auto) 10.4 H Seg Neutrophils % 80.0 H Glucose POC Glucose 203 H Urine Protein 100 H Urine Blood SMALL H Urine Urobilinogen 2.0 H 05/24/19 10:15 WBC RBC Hgb Hct RDW Lymph % (Auto) Absolute Neuts (auto) Seg Neutrophils % Glucose 208 H POC Glucose Urine Protein Urine Blood Urine Urobilinogen - Diagnostic Test Radiology reviewed: Reports reviewed Discharge - Discharge Clinical Impression: Abdominal pain Qualifiers: Abdominal location: right upper quadrant Qualified Code(s): R10.11 - Right upper quadrant pain Type 2 diabetes mellitus Qualifiers: Diabetes mellitus mcc insulin use: unspecified mcc insulin use status Disposition: ADMITTED INPATIENT Admitting Provider: Surgicalist
[2019-05-24] MEDS ORDERED: GLUCAGON,HUMAN RECOMB 1 MG INJ SUBCUT PRN (16:48)
[2019-05-24] MEDS ORDERED: DEXTROSE 50%-WATER 25 GM/50 ML DISP.SYRIN IV PRN ×2 (16:48)
[2019-05-24] MEDS ORDERED: ONDANSETRON HCL INJ/PF 4 MG/2 ML SDV IV PRN (16:48)
[2019-05-24] MEDS ORDERED: DEXTROSE 40% GEL 15 GM TUBE PO PRN ×2 (16:48)
[2019-05-24] MEDS ORDERED: AMPICILLIN SOD/SULBACTAM 3 GM VIAL IV PRN (17:34)
[2019-05-24] MEDS: NORMAL SALINE 1000 ML 1,000 ML IV PRN (18:11)
[2019-05-24] MEDS ORDERED: GLUCAGON,HUMAN RECOMB 1 MG INJ IM PRN (19:00)
[2019-05-24] MEDS ORDERED: INSULIN REG, HUMAN 100 UNIT/ML 3 ML VIAL (PYX) SUBCUT ONE (19:00)
[2019-05-24] MEDS: HYDROMORPHONE HCL INJ/PF 2 MG/ML AMPULE IV PRN ×2 (19:37→23:00)
[2019-05-24] MEDS ORDERED: INFLUENZA QUAD (6MOS+) 2019-20 VAC 0.5 ML SYR IM ONE (20:26)
[2019-05-24] MEDS: FAMOTIDINE INJ/PF 20 MG/2 ML SDV IV SCH (23:00)
[2019-05-24] MEDS: AMPICILLIN SODIUM/SULBACTAM NA 3 GM in NORMAL SALINE 100 ML IV SCH (23:18)
[2019-05-25] MEDS: INSULIN REG, HUMAN 100 UNIT/ML 3 ML VIAL (PYX) SUBCUT SCH ×4 (01:56→17:09)
[2019-05-25] MEDS ORDERED: AMPICILLIN SOD/SULBACTAM 3 GM VIAL ONE (02:08)
[2019-05-25] MEDS: AMPICILLIN SODIUM/SULBACTAM NA 3 GM in NORMAL SALINE 100 ML IV SCH ×4 (02:58→21:09)
[2019-05-25] MEDS: NORMAL SALINE 1000 ML 1,000 ML IV PRN (02:59)
[2019-05-25] MEDS: HYDROMORPHONE HCL INJ/PF 2 MG/ML AMPULE IV PRN (06:21)
[2019-05-25 07:54] LABS: HEMATOCRIT 33.4 % (37.9-51.0); HEMOGLOBIN 10.9 g/dL (13.5-17.0); MEAN CORPUSCULAR HEMOGLOBIN 26.9 pg (27.0-33.4); MEAN CORPUSCULAR HGB CONC 32.7 g/dL (32.0-36.0); MEAN CORPUSCULAR VOLUME 82 fl (80-97); PLATELET COUNT 175 10^3/uL (150-450); RED BLOOD COUNT 4.06 10^6/uL (4.35-5.55); RED CELL DISTRIBUTION WIDTH 16.2 % (11.5-14.0); WHITE BLOOD COUNT 13.5 10^3/uL (4.0-10.5)
[2019-05-25 08:08] LABS: ALBUMIN 4.1 g/dL (3.5-5.0); ALKALINE PHOSPHATASE 77 U/L (38-126); ANION GAP 12 (5-19); ASPARTATE AMINO TRANSFERASE 38 U/L (17-59); BILIRUBIN,DIRECT 0.4 mg/dL (0.0-0.4); BILIRUBIN,TOTAL 1.3 mg/dL (0.2-1.3); BLOOD UREA NITROGEN 12 mg/dL (7-20); CALCIUM 9.2 mg/dL (8.4-10.2); CARBON DIOXIDE 25 mmol/L (22-30); CHLORIDE 103 mmol/L (98-107); GLUCOSE 206 mg/dL (75-110); POTASSIUM 3.7 mmol/L (3.6-5.0); TOTAL PROTEIN 7.9 g/dL (6.3-8.2)
[2019-05-25] MEDS ORDERED: BUPIVACAINE HCL 0.25 % INJ/PF (2.5 MG/1 ML) 30 ML VIAL ONE (08:35)
--- NOTE | 2019-05-25 08:51 | PDOC PROGRESS REPORT ---
Subjective Progress Note for:: 05/25/19 Subjective:: 64 y/o M with acute cholecystitis. He still complains of abdominal pain. He denies CP, SOB, F/C, blurry vision, dizziness. Reason For Visit: ACUTE CHOLECYSTITIS Physical Exam Vital Signs: Temp Pulse Resp BP Pulse Ox 99.4 F 97 17 176/69 H 95 05/25/19 07:25 05/25/19 07:25 05/25/19 07:25 05/25/19 07:25 05/25/19 07:25 Intake & Output 05/24/19 05/25/19 05/26/19 06:59 06:59 06:59 Intake Total 2100 Output Total 750 Balance 1350 Weight 155.3 kg General appearance: PRESENT: cooperative Head exam: PRESENT: atraumatic, normocephalic Eye exam: PRESENT: EOMI, PERRLA. ABSENT: scleral icterus Mouth exam: PRESENT: moist, neck supple Neck exam: ABSENT: tenderness, thyromegaly, tracheal deviation, tracheostomy Respiratory exam: PRESENT: unlabored. ABSENT: chest wall tenderness, tachypnea, wheezes Cardiovascular exam: PRESENT: RRR Pulses: PRESENT: normal radial pulses Vascular exam: PRESENT: normal capillary refill GI/Abdominal exam: PRESENT: soft, tenderness - RUQ Extremities exam: ABSENT: clubbing Musculoskeletal exam: ABSENT: deformity Neurological exam: PRESENT: alert, awake, oriented to person, oriented to place, oriented to time, oriented to situation, CN II-XII grossly intact Psychiatric exam: ABSENT: agitated, anxious, depressed Focused psych exam: ABSENT: delusional Skin exam: ABSENT: cyanosis, erythema, jaundice Results Laboratory Results: 05/25/19 07:11 05/25/19 07:11 05/24/19 05/24/19 05/24/19 10:00 10:15 10:15 WBC 13.0 H RBC 3.77 L Hgb 10.3 L Hct 31.1 L MCV 83 MCH 27.2 MCHC 33.0 RDW 16.3 H Plt Count 188 Seg Neutrophils % 80.0 H Sodium 139.2 Potassium 4.1 Chloride 103 Carbon Dioxide 24 Anion Gap 12 BUN 18 Creatinine 1.07 Est GFR ( Amer) > 60 Glucose 208 H Calcium 9.4 Total Bilirubin 0.8 AST 42 Alkaline Phosphatase 69 Total Protein 7.5 Albumin 4.1 Lipase 275.1 Urine Color YELLOW Urine Appearance CLEAR Urine pH 5.0 Ur Specific [place] 1.015 Urine Protein 100 H Urine Glucose (UA) NEGATIVE Urine Ketones NEGATIVE Urine Blood SMALL H Urine Nitrite NEGATIVE Ur Leukocyte Esterase NEGATIVE Urine WBC (Auto) 0 Urine RBC (Auto) 2 05/25/19 05/25/19 07:11 07:11 WBC 13.5 H RBC 4.06 L Hgb 10.9 L Hct 33.4 L MCV 82 MCH 26.9 L MCHC 32.7 RDW 16.2 H Plt Count 175 Seg Neutrophils % Sodium 139.8 Potassium 3.7 Chloride 103 Carbon Dioxide 25 Anion Gap 12 BUN 12 Creatinine 1.06 Est GFR ( Amer) > 60 Glucose 206 H Calcium 9.2 Total Bilirubin 1.3 AST 38 Alkaline Phosphatase 77 Total Protein 7.9 Albumin 4.1 Lipase Urine Color Urine Appearance Urine pH Ur Specific [place] Urine Protein Urine Glucose (UA) Urine Ketones Urine Blood Urine Nitrite Ur Leukocyte Esterase Urine WBC (Auto) Urine RBC (Auto) Impressions: Abdomen/Pelvis CT 05/24/19 10:56 IMPRESSION: 1. Well-circumscribed heterogeneous lesion in the right lobe of the liver that demonstrates poor enhancement. There are areas of fat within this. This is suggestive of an adenoma. 2. Cholelithiasis. Abdomen Ultrasound 05/24/19 13:14 IMPRESSION: Stones in the gallbladder, borderline gallbladder wall thickening. No gross pericholecystic fluid. Negative sonographic Stoner's sign. Fatty liver. The mass in the subdiaphragmatic right lobe liver seen on CT 05/24/2019 is not characterized with ultrasound Assessment & Plan - Diagnosis (1) Cholecystitis with cholelithiasis Qualifiers: Cholecystitis acuity: acute Is this a current diagnosis for this admission?: Yes - Time Time Spent with patient: Less than 15 minutes - Plan Summary Plan Summary: 64 y/o M with acute cholecystitis. Plan for cholecystectomy today. Risks/benefits discussed, infomred consent obtained, and all questions answered.
[2019-05-25] MEDS ORDERED: HYDROMORPHONE HCL INJ/PF 2 MG/ML AMPULE ONE (08:54)
[2019-05-25] MEDS ORDERED: FENTANYL CITRATE INJ/PF 250 MCG/5 ML AMPULE ONE (08:54)
[2019-05-25] MEDS ORDERED: MIDAZOLAM 2 MG/2 ML INJ ONE (08:55)
[2019-05-25] MEDS ORDERED: PROPOFOL INJ 200 MG/20 ML VIAL IV ONE (08:55)
[2019-05-25] MEDS ORDERED: BUPIVACAINE HCL 0.25 % INJ/PF (2.5 MG/1 ML) 30 ML VIAL INJ ONE (09:38)
[2019-05-25] MEDS ORDERED: FENTANYL CITRATE INJ/PF 100 MCG/2 ML AMPUL IV PRN ×2 (10:09)
[2019-05-25] MEDS ORDERED: MEPERIDINE HCL/PF INJ 25 MG/1 ML DISP.SYRIN IV PRN (10:09)
[2019-05-25] MEDS ORDERED: DIPHENHYDRAMINE HCL 50 MG/ML VIAL IV PRN (10:09)
[2019-05-25] MEDS ORDERED: HYDROMORPHONE HCL INJ/PF 2 MG/ML AMPULE IV PRN ×2 (10:10→11:17)
[2019-05-25] MEDS ORDERED: AMLODIPINE BESYLATE 10 MG TABLET PO ONE ×2 (11:21→14:00)
--- NOTE | 2019-05-25 11:30 | Operative Report ---
Nonrecallable Operative Report DATE OF SURGERY: 05/25/19 PREOPERATIVE DIAGNOSIS: Acute cholecystitis POSTOPERATIVE DIAGNOSIS: Acute, gangrenous cholecystitis. OPERATION: Laparoscopic cholecystectomy SURGEON: BACILIO CELIS ANESTHESIA: GA TISSUE REMOVED OR ALTERED: Gallbladder COMPLICATIONS: None apparent ESTIMATED BLOOD LOSS: 25 cc PROCEDURE: Drains/implants: 15 [place] round Issa drain in the gallbladder fossa. Procedure in detail: After informed consent was obtained, the patient was brought to the operating room and laid in the supine position. The area of the abdomen was prepped and draped in a normal sterile fashion. An incision was created in the supraumbilical midline with a 15 blade scalpel. Dissection was carried through the subcutaneous tissue using sharp and blunt dissection. The linea alba fascia was incised sharply, the abdomen was entered sharply. The balloon trocar was inserted, and pneumoperitoneum was achieved. A subxiphoid 5 mm port was placed under direct laparoscopic visualization. 2 more 5 mm ports were placed in the right upper quadrant in similar fashion. Atraumatic graspers were placed through the 5 mm ports. The gallbladder was retracted cephalad and laterally. The gallbladder was tense and distended. A cyst aspiration needle was used to aspirate thick, dark bile from the gallbladder. Approximately 60 cc was removed. The gallbladder was then more easily retracted. A portion of the wall of the gallbladder was becoming gangrenous. There were dense inflammatory adhesions to the gallbladder. The infundibulum was very difficult to visualize. Secondary to this, it was felt that a dome down technique would be preferable. The gallbladder was released from the liver using electrocautery and blunt dissection. Once the infundibulum was reached, the gallbladder was seen to taper significantly. The cystic artery was identified going immediately into the wall of the gallbladder. The cystic artery was clipped and cut with laparoscopic instruments. A PDS Endoloop was then secured around the infundibulum. Next, the remainder of the gallbladder was amputated and placed into an Endo Catch bag. The Endo Catch bag was then pulled out through the umbilicus. The camera was reinserted. The hilum was inspected. It was found to be free of any leakage of blood or bile. Owing to the large amount of inflammation, a 15 [place] round Issa drain was placed into the lateralmost port. It was situated in the gallbladder fossa. It was sutured to the skin using 2-0 nylon suture. The abdomen was copiously irrigated and suctioned until the effluent was clear. Next, the 5 mm trochars were removed under direct laparoscopic visualization. The supraumbilical trocar was removed, and pneumoperitoneum was relieved. The supraumbilical fascia was closed using 0 Vicryl suture in [id number] fashion. The overlying skin was closed using 4-0 Vicryl Rapide suture in subcuticular fashion. Dressings were placed, and the procedure was concluded. All sponge, instrument, and needle counts were correct x2. Condition: Stable.
[2019-05-25] MEDS ORDERED: FENTANYL CITRATE INJ/PF 100 MCG/2 ML AMPUL ONE (11:36)
[2019-05-25] MEDS: FENTANYL CITRATE INJ/PF 100 MCG/2 ML AMPUL IV PRN ×2 (11:36→11:50)
--- NOTE | 2019-05-25 12:12 | EKG REPORT ---
SEVERITY:- ABNORMAL ECG - SINUS TACHYCARDIA RIGHT BUNDLE BRANCH BLOCK : Confirmed by: Maximino White 25-May-2019 12:10:47
[2019-05-25] MEDS ORDERED: INSULIN GLARGINE,HUM.REC.ANLOG 1,000 UNIT/10 ML VIAL (PYX) SUBCUT ONE (12:15)
[2019-05-25] MEDS ORDERED: INSULIN GLARGINE,HUM.REC.ANLOG 1,000 UNIT/10 ML VIAL SUBCUT ONE (13:00)
[2019-05-25] MEDS: FAMOTIDINE INJ/PF 20 MG/2 ML SDV IV SCH ×2 (13:45→21:10)
[2019-05-25] MEDS: LOSARTAN POTASSIUM 50 MG TABLET PO SCH (13:45)
[2019-05-25] MEDS: OXYCODONE HCL IR 5 MG TABLET PO PRN ×2 (13:46→18:19)
--- NOTE | 2019-05-25 14:04 | PDOC CONSULTATION ---
Consultation Consult Date: 05/25/19 Attending physician:: BACILIO CELIS Provider Consulted: ZBIGNIEW HODGSON Consult reason:: Medical management of hypertension and diabetes History of Present Illness Admission Date/PCP: 05/24/19 15:54 Patient complains of: Abdominal pain, nausea vomiting. History of Present Illness: TJ PIERCE is a 64 year old male with a history of type 2 diabetes mellitus, hypertension, BPH, obstructive sleep apnea on CPAP, who presents to the hospital with complaints of abdominal pain. Abdominal pain has been going on for the past 3 days. Located mostly in his epigastrium and sometimes spreads to his periumbilical regions. No other sites of pain radiation. No significant exacerbating or alleviating factors the patient has noticed. Associated with nausea and several episodes of vomiting. Patient was found to have acute cholecystitis by primary service via abdominal ultrasound. Plan to take to the OR today for cholecystectomy. Hospitalist service consulted for medical management of patient's hypertension and diabetes mellitus. Of note patient states that on his home regimen for his diabetes, he endorses fasting blood sugars of around 140 and postprandial sugars around 1 60-1 80. Past Medical History Cardiac Medical History: Reports: Hyperlipidema, Hypertension Denies: Congestive Heart Failure, Myocardial Infarction Pulmonary Medical History: Reports: Sleep Apnea Denies: Asthma, Bronchitis, Chronic Obstructive Pulmonary Disease (COPD), Pneumonia, Tuberculosis Neurological Medical History: Denies: Seizures Endocrine Medical History: Reports: Diabetes Mellitus Type 2 Renal/ Medical History: Denies: End Stage Renal Disease Malignancy Medical History: Reports: None GI Medical History: Reports: Gastroesophageal Reflux Disease, Other - Fatty liver disease and gallstones. 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 Psychiatric Medical History: Reports: None Denies: Bipolar Disorder, Depression Traumatic Medical History: Reports: None Hematology: Denies: Anemia, Bleeding Tendencies Infectious Medical History: Reports: None Past Surgical History Past Surgical History: Reports: Orthopedic Surgery - Left ankle surgery, Other Social History Smoking Status: Former Smoker Electronic Cigarette use?: No Frequency of Alcohol Use: Rare Hx Recreational Drug Use: No Hx Prescription Drug Abuse: No - Advance Directive Resuscitation Status: Full Code Family History Family History: DM, Hypertension Parental Family History Reviewed: Yes Children Family History Reviewed: NA Sibling(s) Family History Reviewed.: NA Medication/Allergy Home Medications: Amlodipine Besylate [Norvasc 10 mg Tablet] 10 mg PO DAILY 08/27/18 Atorvastatin Calcium [Lipitor] 80 mg PO QHS 08/27/18 Insulin Glargine,Hum.rec.anlog [Lantus Insulin 100 Unit/mL Insulin Pen] 50 units SUBCUT QHS 08/27/18 Metoprolol Tartrate [Lopressor 25 mg Tablet] 25 mg PO BID 08/27/18 Omeprazole 20 mg PO BID 08/27/18 Sitagliptin Phos/Metformin HCl [Janumet Xr 50-1,000 mg Tablet] 50 - 1,000 mg PO BID 08/27/18 Telmisartan/Hydrochlorothiazid [Telmisartan-Hctz 80-25 mg Tab] 1 tab PO DAILY 08/27/18 Terazosin HCl 10 mg PO DAILY 08/27/18 Allergies/Adverse Reactions: aspirin Allergy (Verified 05/24/19 08:55) shellfish derived Allergy (Verified 05/24/19 08:55) acetaminophen [From Tylenol] Adverse Reaction (Severe, Verified 05/24/19 08:55) Pruritis Review of Systems Constitutional: ABSENT: chills, fever(s) Eyes: ABSENT: visual disturbances Nose, Mouth, and Throat: ABSENT: headache(s) Cardiovascular: ABSENT: chest pain Respiratory: ABSENT: dyspnea Gastrointestinal: PRESENT: abdominal pain, nausea Genitourinary: ABSENT: dysuria Musculoskeletal: ABSENT: joint swelling Neurological: ABSENT: confusion Hematologic/Lymphatic: ABSENT: easy bruising Physical Exam Vital Signs: Temp Pulse Resp BP Pulse Ox 97.9 F 84 16 171/90 H 93 05/25/19 12:48 05/25/19 12:48 05/25/19 12:48 05/25/19 12:48 05/25/19 12:48 Intake & Output 05/24/19 05/25/19 05/26/19 06:59 06:59 06:59 Intake Total 2100 1400 Output Total 750 Balance 1350 1400 Weight 155.3 kg General appearance: PRESENT: no acute distress, cooperative Head exam: PRESENT: normocephalic Mouth exam: PRESENT: moist Neck exam: ABSENT: JVD, tenderness Respiratory exam: PRESENT: clear to auscultation frantz, symmetrical, unlabored. ABSENT: rhonchi, stridor, tachypnea, wheezes Cardiovascular exam: PRESENT: RRR, +S1, +S2. ABSENT: irregular rhythm, tachycardia GI/Abdominal exam: PRESENT: distended, normal bowel sounds, soft, tenderness. ABSENT: firm, guarding, rebound, rigid Musculoskeletal exam: PRESENT: ambulatory Neurological exam: PRESENT: alert, awake, oriented to person, oriented to place, oriented to time, oriented to situation Results Laboratory Results: 05/25/19 07:11 05/25/19 07:11 05/25/19 05/25/19 07:11 07:11 WBC 13.5 H RBC 4.06 L Hgb 10.9 L Hct 33.4 L MCV 82 MCH 26.9 L MCHC 32.7 RDW 16.2 H Plt Count 175 Sodium 139.8 Potassium 3.7 Chloride 103 Carbon Dioxide 25 Anion Gap 12 BUN 12 Creatinine 1.06 Est GFR ( Amer) > 60 Glucose 206 H Calcium 9.2 Total Bilirubin 1.3 AST 38 Alkaline Phosphatase 77 Total Protein 7.9 Albumin 4.1 Impressions: Abdomen/Pelvis CT 05/24/19 10:56 IMPRESSION: 1. Well-circumscribed heterogeneous lesion in the right lobe of the liver that demonstrates poor enhancement. There are areas of fat within this. This is suggestive of an adenoma. 2. Cholelithiasis. Abdomen Ultrasound 05/24/19 13:14 IMPRESSION: Stones in the gallbladder, borderline gallbladder wall thickening. No gross pericholecystic fluid. Negative sonographic Stoner's sign. Fatty liver. The mass in the subdiaphragmatic right lobe liver seen on CT 05/24/2019 is not characterized with ultrasound Assessment and Plan - Diagnosis (1) Obstructive sleep apnea treated with continuous positive airway pressure (CPAP) Is this a current diagnosis for this admission?: Yes Plan: Placed patient on CPAP at patient home setting for about 2 hours after extubation after which just use nocturnally during sleep. I have placed orders for this. If patient does not know his own home setting, placed on FiO2 of 30% and pressure of 10. 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 -Since patient is on n.p.o. status right now and blood sugars to uncontrolled still within a tolerable range, I will give 1 dose of 10 units of Lantus now and only continue with sliding scale insulin before meals and at bedtime. -Once patient is taking off n.p.o. status, please resume patient's home dose of Lantus and NovoLog. -I will continue to follow (3) Hypertension Qualifiers: Hypertension type: essential hypertension Qualified Code(s): I10 - Essential (primary) hypertension Is this a current diagnosis for this admission?: Yes Plan: Uncontrolled currently -Resume outpatient blood pressure medications. I have placed orders for a dose of losartan [address] of telmisartan today as well as a dose of amlodipine 10 mg now. (4) Cholecystitis with cholelithiasis Qualifiers: Cholecystitis acuity: acute Is this a current diagnosis for this admission?: Yes Plan: Plan is for cholecystectomy today. Pain control. Defer to surgery for rest of management. - Time Time Spent with patient: 35 or more minutes
[2019-05-25] MEDS ORDERED: SUCCINYLCHOLINE CHLORIDE INJ 200 MG/10 ML VIAL ONE (14:20)
[2019-05-25] MEDS ORDERED: ROCURONIUM BROMIDE INJ 50 MG/5 ML VIAL IV ONE (14:20)
[2019-05-25] MEDS ORDERED: LIDOCAINE 2% INJ-PF (20 MG/ML) 2 ML AMPUL ONE (14:20)
[2019-05-25] MEDS ORDERED: GLYCOPYRROLATE 1 MG/5 ML VIAL ONE (14:20)
[2019-05-25] MEDS ORDERED: NEOSTIGMINE METHYLSULFATE 10 MG/10 ML VIAL ONE (14:20)
[2019-05-25] MEDS ORDERED: ONDANSETRON HCL INJ/PF 4 MG/2 ML SDV ONE (14:20)
[2019-05-25] MEDS ORDERED: DEXTROSE 40% GEL 15 GM TUBE PO PRN (17:43)
[2019-05-25] MEDS: INSULIN GLARGINE,HUM.REC.ANLOG 1,000 UNIT/10 ML VIAL SUBCUT SCH (21:09)
[2019-05-25] MEDS: ATORVASTATIN CALCIUM 80 MG TABLET PO SCH (21:10)
[2019-05-25] MEDS: METOPROLOL TARTRATE 25 MG TABLET PO SCH (21:10)
[2019-05-26] MEDS: INSULIN REG, HUMAN 100 UNIT/ML 3 ML VIAL (PYX) SUBCUT SCH ×4 (00:05→17:00)
[2019-05-26] MEDS: OXYCODONE HCL IR 5 MG TABLET PO PRN ×5 (00:29→21:19)
[2019-05-26] MEDS: AMPICILLIN SODIUM/SULBACTAM NA 3 GM in NORMAL SALINE 100 ML IV SCH ×4 (02:44→21:20)
--- NOTE | 2019-05-26 06:24 | PDOC DISCHARGE SUMMARY ---
General - Admit/Disc Date/PCP Admission Date/Primary Care Provider: 05/24/19 15:54 Discharge Date: 05/26/19 - Discharge Diagnosis Final Diagnosis: acute cholecystitis - Assessment Summary: This is a 64-year-old male admitted with right upper quadrant abdominal pain. He was found to have acute cholecystitis. He was started on antibiotics and taken to the operating room where laparoscopic cholecystectomy was successfully performed. The patient was taken to the floor in stable condition after his surgery. Patient was found to have acute cholecystitis and a drain was left in place. On postoperative day #1, the patient was ambulating, tolerating a diet, comfortable on oral pain medications, and it was felt that he had reached maximal hospital benefit and was fit for discharge. - Additional Information Resuscitation Status: Full Code Discharge Diet: As Tolerated Discharge Activity: Balance Activity w/Rest, No Lifting Over 10 Pounds, No Lifting/Push/Pulling Home Medications: Amlodipine Besylate [Norvasc 10 mg Tablet] 10 mg PO DAILY 05/25/19 Atorvastatin Calcium [Lipitor 80 mg Tablet] 80 mg PO QHS 05/25/19 Insulin Glargine,Hum.rec.anlog [Lantus Insulin 100 Unit/1 ml 10 ml] 50 units SQ QHS 05/25/19 Metoprolol Tartrate [Lopressor 25 mg Tablet] 25 mg PO BID 05/25/19 Omeprazole 20 mg PO BID 05/25/19 Sitagliptin Phos/Metformin HCl [Janumet Xr 50-1,000 mg Tablet] 1 tab PO BID 05/25/19 Telmisartan/Hydrochlorothiazid [Micardis HCT 80-25 mg Tablet] 1 tab PO DAILY 05/25/19 Terazosin HCl [Hytrin] 10 mg PO DAILY 05/25/19 Additional Information: Discharge home. Diet as tolerated. Activity: No lifting greater than 10 pounds x 2 weeks. Follow-up with me at [facility] in 7 to 10 days. Record BAKARI output daily. Please collect 24-hour totals. Dameron 10/325 mg p.o. every 6 hours as needed for pain. Ibuprofen 800 mg p.o. 3 times daily with meals. Okay to shower starting tomorrow (Tuesday). No hot tubs or swimming pools x2 weeks. History of Present Illiness History of Present Illness: TJ PIERCE is a 64 year old male Physical Exam Vital Signs: Temp Pulse Resp BP Pulse Ox 99.5 F 96 18 155/76 H 96 05/25/19 19:16 05/25/19 19:16 05/25/19 19:16 05/25/19 19:16 05/25/19 19:16 Intake & Output 05/24/19 05/25/19 05/26/19 06:59 06:59 06:59 Intake Total 2100 3994 Output Total 750 20 Balance 1350 3974 Weight 155.3 kg Results Laboratory Results: WBC 13.5 10^3/uL (4.0-10.5) H 05/25/19 07:11 RBC 4.06 10^6/uL (4.35-5.55) L 05/25/19 07:11 Hgb 10.9 g/dL (13.5-17.0) L 05/25/19 07:11 Hct 33.4 % (37.9-51.0) L 05/25/19 07:11 MCV 82 fl (80-97) 05/25/19 07:11 MCH 26.9 pg (27.0-33.4) L 05/25/19 07:11 MCHC 32.7 g/dL (32.0-36.0) 05/25/19 07:11 RDW 16.2 % (11.5-14.0) H 05/25/19 07:11 Plt Count 175 10^3/uL (150-450) 05/25/19 07:11 Lymph % (Auto) 11.9 % (13-45) L 05/24/19 10:15 [place] % (Auto) 7.4 % (3-13) 05/24/19 10:15 Eos % (Auto) 0.2 % (0-6) 05/24/19 10:15 Baso % (Auto) 0.5 % (0-2) 05/24/19 10:15 Absolute Neuts (auto) 10.4 10^3/uL (1.7-8.2) H 05/24/19 10:15 Absolute Lymphs (auto) 1.5 10^3/uL (0.5-4.7) 05/24/19 10:15 Absolute Monos (auto) 1.0 10^3/uL (0.1-1.4) 05/24/19 10:15 Absolute Eos (auto) 0.0 10^3/uL (0.0-0.6) 05/24/19 10:15 Absolute Basos (auto) 0.1 10^3/uL (0.0-0.2) 05/24/19 10:15 Seg Neutrophils % 80.0 % (42-78) H 05/24/19 10:15 Sodium 139.8 mmol/L (137-145) 05/25/19 07:11 Potassium 3.7 mmol/L (3.6-5.0) 05/25/19 07:11 Chloride 103 mmol/L (98-107) 05/25/19 07:11 Carbon Dioxide 25 mmol/L (22-30) 05/25/19 07:11 Anion Gap 12 (5-19) 05/25/19 07:11 BUN 12 mg/dL (7-20) 05/25/19 07:11 Creatinine 1.06 mg/dL (0.52-1.25) 05/25/19 07:11 Est GFR ( Amer) > 60 (>60) 05/25/19 07:11 Est GFR (MDRD) Non-Af > 60 (>60) 05/25/19 07:11 Glucose 206 mg/dL (75-110) H 05/25/19 07:11 POC Glucose 174 mg/dL (70-110) H 05/26/19 05:24 Calcium 9.2 mg/dL (8.4-10.2) 05/25/19 07:11 Total Bilirubin 1.3 mg/dL (0.2-1.3) 05/25/19 07:11 Direct Bilirubin 0.4 mg/dL (0.0-0.4) 05/25/19 07:11 Neonat Total Bilirubin Not Reportable 05/25/19 07:11 Neonat Direct Bilirubin Not Reportable 05/25/19 07:11 Neonat Indirect Bili Not Reportable 05/25/19 07:11 AST 38 U/L (17-59) 05/25/19 07:11 ALT 42 U/L (<50) 05/25/19 07:11 Alkaline Phosphatase 77 U/L (38-126) 05/25/19 07:11 Total Protein 7.9 g/dL (6.3-8.2) 05/25/19 07:11 Albumin 4.1 g/dL (3.5-5.0) 05/25/19 07:11 Lipase 275.1 U/L (23-300) 05/24/19 10:15 Urine Color YELLOW 05/24/19 10:00 Urine Appearance CLEAR 05/24/19 10:00 Urine pH 5.0 (5.0-9.0) 05/24/19 10:00 Ur Specific [place] 1.015 05/24/19 10:00 Urine Protein 100 mg/dL (NEGATIVE) H 05/24/19 10:00 Urine Glucose (UA) NEGATIVE mg/dL (NEGATIVE) 05/24/19 10:00 Urine Ketones NEGATIVE mg/dL (NEGATIVE) 05/24/19 10:00 Urine Blood SMALL (NEGATIVE) H 05/24/19 10:00 Urine Nitrite NEGATIVE (NEGATIVE) 05/24/19 10:00 Urine Bilirubin NEGATIVE (NEGATIVE) 05/24/19 10:00 Urine Urobilinogen 2.0 mg/dL (<2.0) H 05/24/19 10:00 Ur Leukocyte Esterase NEGATIVE (NEGATIVE) 05/24/19 10:00 Urine WBC (Auto) 0 /HPF 05/24/19 10:00 Urine RBC (Auto) 2 /HPF 05/24/19 10:00 Urine Mucus (Auto) RARE /LPF 05/24/19 10:00 Urine Ascorbic Acid NEGATIVE (NEGATIVE) 05/24/19 10:00 Impressions: Abdomen/Pelvis CT 05/24/19 10:56 IMPRESSION: 1. Well-circumscribed heterogeneous lesion in the right lobe of the liver that demonstrates poor enhancement. There are areas of fat within this. This is suggestive of an adenoma. 2. Cholelithiasis. Abdomen Ultrasound 05/24/19 13:14 IMPRESSION: Stones in the gallbladder, borderline gallbladder wall thickening. No gross pericholecystic fluid. Negative sonographic Stoner's sign. Fatty liver. The mass in the subdiaphragmatic right lobe liver seen on CT 05/24/2019 is not characterized with ultrasound
[2019-05-26] MEDS: INSULIN LISPRO 100 UNIT/ML 3 ML VIAL SUBCUT SCH ×2 (07:46→16:57)
[2019-05-26] MEDS: INSULIN GLARGINE,HUM.REC.ANLOG 1,000 UNIT/10 ML VIAL SUBCUT SCH ×2 (09:33→21:18)
[2019-05-26] MEDS: FAMOTIDINE INJ/PF 20 MG/2 ML SDV IV SCH ×2 (09:34→21:19)
[2019-05-26] MEDS: METOPROLOL TARTRATE 25 MG TABLET PO SCH ×2 (09:34→21:19)
[2019-05-26] MEDS: AMLODIPINE BESYLATE 10 MG TABLET PO SCH (09:34)
[2019-05-26] MEDS: LOSARTAN POTASSIUM 50 MG TABLET PO SCH (09:34)
[2019-05-26] MEDS: HYDROCHLOROTHIAZIDE 25 MG TABLET PO SCH (09:34)
--- NOTE | 2019-05-26 10:49 | PDOC PROGRESS REPORT ---
Subjective Progress Note for:: 05/26/19 Subjective:: Patient still has some abdominal pain today after surgery. Otherwise patient feels well. Patient denies any fever or chills. Patient denies any headaches. Reason For Visit: ACUTE CHOLECYSTITIS Physical Exam Vital Signs: Temp Pulse Resp BP Pulse Ox 98.9 F 110 H 12 140/77 H 93 05/26/19 07:42 05/26/19 07:42 05/26/19 07:42 05/26/19 07:42 05/26/19 07:42 Intake & Output 05/25/19 05/26/19 05/27/19 06:59 06:59 06:59 Intake Total 2100 4444 Output Total 750 30 Balance 1350 4414 Weight 155.3 kg 158 kg General appearance: PRESENT: no acute distress, cooperative Neck exam: ABSENT: JVD Respiratory exam: PRESENT: clear to auscultation frantz, symmetrical, unlabored. ABSENT: chest wall tenderness, tachypnea, wheezes Cardiovascular exam: PRESENT: RRR, +S1, +S2. ABSENT: tachycardia GI/Abdominal exam: PRESENT: normal bowel sounds, soft, tenderness. ABSENT: rebound, rigid Neurological exam: PRESENT: alert, awake, oriented to person, oriented to place, oriented to time Results Laboratory Results: 05/25/19 07:11 05/25/19 07:11 Impressions: Abdomen/Pelvis CT 05/24/19 10:56 IMPRESSION: 1. Well-circumscribed heterogeneous lesion in the right lobe of the liver that demonstrates poor enhancement. There are areas of fat within this. This is suggestive of an adenoma. 2. Cholelithiasis. Abdomen Ultrasound 05/24/19 13:14 IMPRESSION: Stones in the gallbladder, borderline gallbladder wall thickening. No gross pericholecystic fluid. Negative sonographic Stoner's sign. Fatty liver. 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 Patient should be discharged on his home regimen for his diabetes which also includes Janumet. (3) Hypertension Qualifiers: Hypertension type: essential hypertension Qualified Code(s): I10 - Essential (primary) hypertension Is this a current diagnosis for this admission?: Yes Plan: Uncontrolled currently -Continue with blood pressure regimen. Patient should resume his blood pressure management on discharge. (4) Cholecystitis with cholelithiasis Qualifiers: Cholecystitis acuity: acute Is this a current diagnosis for this admission?: Yes Plan: Status post cholecystectomy. Pain control. Defer to surgery for rest of management. - Plan Summary Summary: Will sign off. - Time Time Spent with patient: Less than 15 minutes
[2019-05-26] MEDS: ATORVASTATIN CALCIUM 80 MG TABLET PO SCH (21:19)
[2019-05-27] MEDS: OXYCODONE HCL IR 5 MG TABLET PO PRN ×4 (01:22→15:05)
[2019-05-27] MEDS: AMPICILLIN SODIUM/SULBACTAM NA 3 GM in NORMAL SALINE 100 ML IV SCH ×2 (02:22→08:12)
[2019-05-27] MEDS: INSULIN REG, HUMAN 100 UNIT/ML 3 ML VIAL (PYX) SUBCUT SCH ×3 (02:26→12:43)
[2019-05-27] MEDS: INSULIN LISPRO 100 UNIT/ML 3 ML VIAL SUBCUT SCH (07:38)
[2019-05-27] MEDS: LOSARTAN POTASSIUM 50 MG TABLET PO SCH (09:15)
[2019-05-27] MEDS: HYDROCHLOROTHIAZIDE 25 MG TABLET PO SCH (09:15)
[2019-05-27] MEDS: METOPROLOL TARTRATE 25 MG TABLET PO SCH (09:15)
[2019-05-27] MEDS: AMLODIPINE BESYLATE 10 MG TABLET PO SCH (09:15)
[2019-05-27] MEDS: INSULIN GLARGINE,HUM.REC.ANLOG 1,000 UNIT/10 ML VIAL SUBCUT SCH (09:15)
[2019-05-27] MEDS: FAMOTIDINE INJ/PF 20 MG/2 ML SDV IV SCH (09:16)
[2019-05-27 13:33] VITALS: BP 151/80
--- NOTE | 2019-05-27 14:05 | PDOC PROGRESS REPORT ---
Subjective Progress Note for:: 05/27/19 Subjective:: Feels well. Tolerating a diet well. Reason For Visit: ACUTE CHOLECYSTITIS Physical Exam Vital Signs: Temp Pulse Resp BP Pulse Ox 98.7 F 87 18 151/80 H 100 05/27/19 13:30 05/27/19 13:30 05/27/19 13:30 05/27/19 13:30 05/27/19 13:30 Intake & Output 05/26/19 05/27/19 05/28/19 06:59 06:59 06:59 Intake Total 4444 1681 100 Output Total 30 20 Balance 4414 1661 100 Weight 158 kg 158.4 kg General appearance: PRESENT: no acute distress, cooperative Respiratory exam: PRESENT: clear to auscultation frantz Cardiovascular exam: PRESENT: RRR GI/Abdominal exam: PRESENT: other - Soft, nondistended, nontender to palpation. Drain output is serosanguineous. Results Laboratory Results: 05/25/19 07:11 05/25/19 07:11 Impressions: Abdomen/Pelvis CT 05/24/19 10:56 IMPRESSION: 1. Well-circumscribed heterogeneous lesion in the right lobe of the liver that demonstrates poor enhancement. There are areas of fat within this. This is suggestive of an adenoma. 2. Cholelithiasis. Abdomen Ultrasound 05/24/19 13:14 IMPRESSION: Stones in the gallbladder, borderline gallbladder wall thickening. No gross pericholecystic fluid. Negative sonographic Stoner's sign. Fatty liver. The mass in the subdiaphragmatic right lobe liver seen on CT 05/24/2019 is not characterized with ultrasound Assessment & Plan - Diagnosis (1) Cholecystitis with cholelithiasis Qualifiers: Cholecystitis acuity: acute Is this a current diagnosis for this admission?: Yes Plan: Status post laparoscopic cholecystectomy. Patient doing very well. Will discharge patient home. Will DC drain prior to discharge. (2) Liver lesion, right lobe Is this a current diagnosis for this admission?: Yes - Time Time Spent with patient: Less than 15 minutes
--- NOTE | 2019-05-27 14:13 | PDOC DISCHARGE SUMMARY ---
General - Admit/Disc Date/PCP Admission Date/Primary Care Provider: 05/24/19 15:54 Discharge Date: 05/27/19 - Discharge Diagnosis Final Diagnosis: Acute cholecystitis with cholelithiasis. Liver mass. Left kidney lesion. - Assessment Summary: Patient was admitted placed on IV antibiotics and he was subsequently taken to the operating room where he underwent laparoscopic cholecystectomy. He did well postoperatively. He was tolerating a diet well with minimal abdominal pain at the time of discharge. His exam looks good. His drain output was serosanguineous and was pulled prior to discharge. Patient has not been discharged home in good condition. He may resume his home medications. Additional medication is Percocet 1 p.o. every 4 hours as needed pain. He may shower. He is to stay active but avoid strenuous activity. He is to follow-up with Dr. Alcaraz in 2 weeks. He will need follow-up for his liver lesion as well as his left kidney lesion seen on CT scan. He will also need to be considered for a colonoscopy as an outpatient in light of his anemia. - Additional Information Resuscitation Status: Full Code Discharge Diet: As Tolerated, Regular Discharge Activity: Balance Activity w/Rest, No Lifting Over 10 Pounds, No Lifting/Push/Pulling Referrals: [facility] [Provider Group] (arina shen, dr alcaraz) Prescriptions: Oxycodone HCl [Oxy-Ir 5 mg Tablet] 5 mg PO Q4HP PRN #8 tablet PRN Reason: For Pain Scale 3-5 Home Medications: Amlodipine Besylate [Norvasc 10 mg Tablet] 10 mg PO DAILY 05/25/19 Atorvastatin Calcium [Lipitor 80 mg Tablet] 80 mg PO QHS 05/25/19 Insulin Glargine,Hum.rec.anlog [Lantus Insulin 100 Unit/1 ml 10 ml] 50 units SQ QHS 05/25/19 Metoprolol Tartrate [Lopressor 25 mg Tablet] 25 mg PO BID 05/25/19 Omeprazole 20 mg PO BID 05/25/19 Sitagliptin Phos/Metformin HCl [Janumet Xr 50-1,000 mg Tablet] 1 tab PO BID 05/25/19 Telmisartan/Hydrochlorothiazid [Micardis HCT 80-25 mg Tablet] 1 tab PO DAILY 05/25/19 Terazosin HCl [Hytrin] 10 mg PO DAILY 05/25/19 Oxycodone HCl [Oxy-Ir 5 mg Tablet] 5 mg PO Q4HP PRN #8 tablet 05/27/19 History of Present Illiness History of Present Illness: TJ PIERCE is a 64 year old male presenting with 1 day history of epigastric abdominal pain. Pain started yesterday in the epigastric and right upper quadrant region along with nausea and vomiting. The pain persisted and he subsequently came into the ER. No diarrhea. No fevers or chills. No jaundice. Patient had a prior episode of this sort of pain a number of years ago and was noted with fatty liver disease as well as gallstones. Patient denies any alcohol abuse. Denies any trauma. Patient apparently has been feeling well otherwise up until yesterday. No chronic GI issues. He has had a colonoscopy about 5 years ago and was noted with a colon polyp at that time. Patient does have a known history of anemia of unknown etiology. Has not had recent endoscopy procedures. Patient denies any recent weight loss. Family history is unremarkable for malignancies. Physical Exam Vital Signs: Temp Pulse Resp BP Pulse Ox 98.7 F 87 18 151/80 H 100 05/27/19 13:30 05/27/19 13:30 05/27/19 13:30 05/27/19 13:30 05/27/19 13:30 Intake & Output 05/26/19 05/27/19 05/28/19 06:59 06:59 06:59 Intake Total 4444 1681 100 Output Total 30 20 Balance 4414 1661 100 Weight 158 kg 158.4 kg Results Laboratory Results: WBC 13.5 10^3/uL (4.0-10.5) H 05/25/19 07:11 RBC 4.06 10^6/uL (4.35-5.55) L 05/25/19 07:11 Hgb 10.9 g/dL (13.5-17.0) L 05/25/19 07:11 Hct 33.4 % (37.9-51.0) L 05/25/19 07:11 MCV 82 fl (80-97) 05/25/19 07:11 MCH 26.9 pg (27.0-33.4) L 05/25/19 07:11 MCHC 32.7 g/dL (32.0-36.0) 05/25/19 07:11 RDW 16.2 % (11.5-14.0) H 05/25/19 07:11 Plt Count 175 10^3/uL (150-450) 05/25/19 07:11 Lymph % (Auto) 11.9 % (13-45) L 05/24/19 10:15 [place] % (Auto) 7.4 % (3-13) 05/24/19 10:15 Eos % (Auto) 0.2 % (0-6) 05/24/19 10:15 Baso % (Auto) 0.5 % (0-2) 05/24/19 10:15 Absolute Neuts (auto) 10.4 10^3/uL (1.7-8.2) H 05/24/19 10:15 Absolute Lymphs (auto) 1.5 10^3/uL (0.5-4.7) 05/24/19 10:15 Absolute Monos (auto) 1.0 10^3/uL (0.1-1.4) 05/24/19 10:15 Absolute Eos (auto) 0.0 10^3/uL (0.0-0.6) 05/24/19 10:15 Absolute Basos (auto) 0.1 10^3/uL (0.0-0.2) 05/24/19 10:15 Seg Neutrophils % 80.0 % (42-78) H 05/24/19 10:15 Sodium 139.8 mmol/L (137-145) 05/25/19 07:11 Potassium 3.7 mmol/L (3.6-5.0) 05/25/19 07:11 Chloride 103 mmol/L (98-107) 05/25/19 07:11 Carbon Dioxide 25 mmol/L (22-30) 05/25/19 07:11 Anion Gap 12 (5-19) 05/25/19 07:11 BUN 12 mg/dL (7-20) 05/25/19 07:11 Creatinine 1.06 mg/dL (0.52-1.25) 05/25/19 07:11 Est GFR ( Amer) > 60 (>60) 05/25/19 07:11 Est GFR (MDRD) Non-Af > 60 (>60) 05/25/19 07:11 Glucose 206 mg/dL (75-110) H 05/25/19 07:11 POC Glucose 170 mg/dL (70-110) H 05/27/19 11:57 Calcium 9.2 mg/dL (8.4-10.2) 05/25/19 07:11 Total Bilirubin 1.3 mg/dL (0.2-1.3) 05/25/19 07:11 Direct Bilirubin 0.4 mg/dL (0.0-0.4) 05/25/19 07:11 Neonat Total Bilirubin Not Reportable 05/25/19 07:11 Neonat Direct Bilirubin Not Reportable 05/25/19 07:11 Neonat Indirect Bili Not Reportable 05/25/19 07:11 AST 38 U/L (17-59) 05/25/19 07:11 ALT 42 U/L (<50) 05/25/19 07:11 Alkaline Phosphatase 77 U/L (38-126) 05/25/19 07:11 Total Protein 7.9 g/dL (6.3-8.2) 05/25/19 07:11 Albumin 4.1 g/dL (3.5-5.0) 05/25/19 07:11 Lipase 275.1 U/L (23-300) 05/24/19 10:15 Urine Color YELLOW 05/24/19 10:00 Urine Appearance CLEAR 05/24/19 10:00 Urine pH 5.0 (5.0-9.0) 05/24/19 10:00 Ur Specific [place] 1.015 05/24/19 10:00 Urine Protein 100 mg/dL (NEGATIVE) H 05/24/19 10:00 Urine Glucose (UA) NEGATIVE mg/dL (NEGATIVE) 05/24/19 10:00 Urine Ketones NEGATIVE mg/dL (NEGATIVE) 05/24/19 10:00 Urine Blood SMALL (NEGATIVE) H 05/24/19 10:00 Urine Nitrite NEGATIVE (NEGATIVE) 05/24/19 10:00 Urine Bilirubin NEGATIVE (NEGATIVE) 05/24/19 10:00 Urine Urobilinogen 2.0 mg/dL (<2.0) H 05/24/19 10:00 Ur Leukocyte Esterase NEGATIVE (NEGATIVE) 05/24/19 10:00 Urine WBC (Auto) 0 /HPF 05/24/19 10:00 Urine RBC (Auto) 2 /HPF 05/24/19 10:00 Urine Mucus (Auto) RARE /LPF 05/24/19 10:00 Urine Ascorbic Acid NEGATIVE (NEGATIVE) 05/24/19 10:00 Impressions: Abdomen/Pelvis CT 05/24/19 10:56 IMPRESSION: 1. Well-circumscribed heterogeneous lesion in the right lobe of the liver that demonstrates poor enhancement. There are areas of fat within this. This is suggestive of an adenoma. 2. Cholelithiasis. Abdomen Ultrasound 05/24/19 13:14 IMPRESSION: Stones in the gallbladder, borderline gallbladder wall thickening. No gross pericholecystic fluid. Negative sonographic Stoner's sign. Fatty liver. The mass in the subdiaphragmatic right lobe liver seen on CT 05/24/2019 is not characterized with ultrasound
--- NOTE | 2019-05-31 20:28 | PDOC H&P ---
History of Present Illness Admission Date/PCP: 05/24/19 15:54 Patient complains of: Abdominal pain History of Present Illness: TJ PIERCE is a 64 year old male presenting with 1 day history of epigastric abdominal pain. Pain started yesterday in the epigastric and right upper quadrant region along with nausea and vomiting. The pain persisted and he subsequently came into the ER. No diarrhea. No fevers or chills. No jaundice. Patient had a prior episode of this sort of pain a number of years ago and was noted with fatty liver disease as well as gallstones. Patient denies any alcohol abuse. Denies any trauma. Patient apparently has been feeling well otherwise up until yesterday. No chronic GI issues. He has had a colonoscopy about 5 years ago and was noted with a colon polyp at that time. Patient does have a known history of anemia of unknown etiology. Has not had recent endoscopy procedures. Patient denies any recent weight loss. Family history is unremarkable for malignancies. Past Medical History Cardiac Medical History: Reports: Hyperlipidema, Hypertension Pulmonary Medical History: Reports: Sleep Apnea Endocrine Medical History: Reports: Diabetes Mellitus Type 2 Malignancy Medical History: Reports: None GI Medical History: Reports: Other - Fatty liver disease and gallstones. 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 Psychiatric Medical History: Reports: None Denies: Depression Traumatic Medical History: Reports: None Hematology: Reports: Anemia Infectious Medical History: Reports: None Past Surgical History Past Surgical History: Reports: Orthopedic Surgery - Left ankle surgery Social History Smoking Status: Former Smoker - Quit 30 years ago. Electronic Cigarette use?: No Frequency of Alcohol Use: Rare Hx Recreational Drug Use: No Hx Prescription Drug Abuse: No Family History Family History: DM, Hypertension Parental Family History Reviewed: Yes Children Family History Reviewed: Yes Sibling(s) Family History Reviewed.: Yes Medication/Allergy Home Medications: Amlodipine Besylate [Norvasc 10 mg Tablet] 10 mg PO DAILY 08/27/18 Atorvastatin Calcium [Lipitor] 80 mg PO QHS 08/27/18 Gabapentin Enacarbil [Horizant] 600 mg PO DAILY 08/27/18 Insulin Glargine,Hum.rec.anlog [Lantus Insulin 100 Unit/mL Insulin Pen] 50 units SUBCUT QHS 08/27/18 Metoprolol Tartrate [Lopressor 25 mg Tablet] 25 mg PO BID 08/27/18 Omeprazole 20 mg PO BID 08/27/18 Oxycodone HCl [Oxy-Ir 5 mg Tablet] 30 mg PO Q4H PRN 08/27/18 Sitagliptin Phos/Metformin HCl [Janumet Xr 50-1,000 mg Tablet] 50 - 1,000 mg PO BID 08/27/18 Telmisartan/Hydrochlorothiazid [Telmisartan-Hctz 80-25 mg Tab] 1 tab PO DAILY 08/27/18 Terazosin HCl 10 mg PO DAILY 08/27/18 Allergies/Adverse Reactions: aspirin Allergy (Verified 05/24/19 08:55) shellfish derived Allergy (Verified 05/24/19 08:55) acetaminophen [From Tylenol] Adverse Reaction (Severe, Verified 05/24/19 08:55) Pruritis Review of Systems All systems: reviewed and no additional remarkable complaints except as stated Gastrointestinal: PRESENT: as per HPI Physical Exam Vital Signs: Temp Pulse Resp BP Pulse Ox 98.0 F 86 16 149/70 H 96 05/24/19 14:04 05/24/19 14:04 05/24/19 14:04 05/24/19 14:04 05/24/19 14:04 Intake & Output 05/23/19 05/24/19 05/25/19 06:59 06:59 06:59 Intake Total 1000 Balance 1000 Weight 154.8 kg General appearance: PRESENT: no acute distress, cooperative, obese Eye exam: PRESENT: conjunctiva pink Throat exam: PRESENT: other - No erythema Neck exam: PRESENT: other - Supple with no tenderness Respiratory exam: PRESENT: clear to auscultation frantz Cardiovascular exam: PRESENT: RRR GI/Abdominal exam: PRESENT: other - Mildly distended, soft with tenderness in the epigastric and right upper quadrant region without peritoneal signs. Extremities exam: PRESENT: +1 edema - Bilateral diffuse lower extremity Neurological exam: PRESENT: alert, awake Psychiatric exam: PRESENT: appropriate affect Skin exam: PRESENT: warm Results Laboratory Results: 05/24/19 10:15 05/24/19 10:15 05/24/19 05/24/19 05/24/19 10:00 10:15 10:15 WBC 13.0 H RBC 3.77 L Hgb 10.3 L Hct 31.1 L MCV 83 MCH 27.2 MCHC 33.0 RDW 16.3 H Plt Count 188 Seg Neutrophils % 80.0 H Sodium 139.2 Potassium 4.1 Chloride 103 Carbon Dioxide 24 Anion Gap 12 BUN 18 Creatinine 1.07 Est GFR ( Amer) > 60 Glucose 208 H Calcium 9.4 Total Bilirubin 0.8 AST 42 Alkaline Phosphatase 69 Total Protein 7.5 Albumin 4.1 Lipase 275.1 Urine Color YELLOW Urine Appearance CLEAR Urine pH 5.0 Ur Specific [place] 1.015 Urine Protein 100 H Urine Glucose (UA) NEGATIVE Urine Ketones NEGATIVE Urine Blood SMALL H Urine Nitrite NEGATIVE Ur Leukocyte Esterase NEGATIVE Urine WBC (Auto) 0 Urine RBC (Auto) 2 Impressions: Abdomen/Pelvis CT 05/24/19 10:56 IMPRESSION: 1. Well-circumscribed heterogeneous lesion in the right lobe of the liver that demonstrates poor enhancement. There are areas of fat within this. This is suggestive of an adenoma. 2. Cholelithiasis. Abdomen Ultrasound 05/24/19 13:14 IMPRESSION: Stones in the gallbladder, borderline gallbladder wall thickening. No gross pericholecystic fluid. Negative sonographic Stoner's sign. Fatty liver. The mass in the subdiaphragmatic right lobe liver seen on CT 05/24/2019 is not characterized with ultrasound Assessment & Plan - Diagnosis (1) Cholecystitis with cholelithiasis Qualifiers: Cholecystitis acuity: acute Is this a current diagnosis for this admission?: Yes Plan: Will admit the patient place him on bowel rest and antibiotics. We will plan laparoscopic cholecystectomy tomorrow. I have discussed with the patient risk and benefits of the procedure including risk of conversion to an open procedure, infection, bleeding, adjacent structure injury, mistaken diagnosis. Patient understands and agrees to proceed. Will discuss with the oncoming surgeon tomorrow who will be performing this procedure. (2) Liver lesion, right lobe Is this a current diagnosis for this admission?: Yes Plan: Lesion in the right lobe of the liver. Will discuss with the oncoming surgeon about possible biopsy intraoperatively if it is visible.
== END 2019-05-27 16:15 | disposition home or self-care (01) ==
LOC: ER 08:40 → EH 15:54 → UNDOADMIN 15:54 → ASU 1 16:48 → 4N 17:49 → EH 17:49 → UNDODISIN 05-27 15:35 → ASU 1 05-27 16:15
PROVIDERS: ATTEND Surgery
DX: K81.0 Acute cholecystitis (principal); R16.0 Hepatomegaly, not elsewhere classified; K76.0 Fatty (change of) liver, not elsewhere classified; E11.9 Type 2 diabetes mellitus without complications; I10 Essential (primary) hypertension; N40.0 Benign prostatic hyperplasia without lower urinary tract symptoms; G47.33 Obstructive sleep apnea (adult) (pediatric); E78.5 Hyperlipidemia, unspecified; E66.9 Obesity, unspecified; Z79.4 Long term (current) use of insulin; Z79.899 Other long term (current) drug therapy; Z87.891 Personal history of nicotine dependence; Z88.6 Allergy status to analgesic agent; Z23 Encounter for immunization
CPT/HCPCS: 96376; 99285; 96372; 96361; 96374; 36415 ×2; 82962 ×4; 83690; 85025; 85027; 80053 ×2; 81001; 88304 ×2; 76705; 74177; 90686; 93005; 93010; 00790; 47562; 90471; J2250; A9270 ×25; J3490 ×5; J3010 ×2; J0295 ×4; J2270; J2710; J1170 ×2; J0330; J2405 ×2; J7050 ×3; J7030 ×2; J2704; S0028 ×3; 790; J1815